=== PATIENT | female | born 1980 | race Caucasian/White ===

== ENCOUNTER 2024-10-13 20:50 | Outpatient (REF) | payer OTHER, SELFPAY ==
[2024-10-21 22:06] LABS: Age Gdln ACOG Testing Note (.); HPV Aptima Positive (Negative); HPV Genotype 16 Negative (Negative); HPV Genotype 18,45 Negative (Negative); IGP, Aptima HPV, rfx 16/18,45 Note (.)
== END 2024-10-13 20:51 | disposition home or self-care (01) ==
LOC: LAB 20:50
PROVIDERS: Visit Provider Obstetrics & Gynecology
DX: Z01.419 Encounter for gynecological examination (general) (routine) without abnormal findings (principal)
CPT/HCPCS: 87624; 87625; 88175

== ENCOUNTER 2024-12-10 11:05 | Outpatient (OUT) | payer OTHER, SELFPAY | END 2024-12-10 11:06 | disposition home or self-care (01) | PROVIDERS: Visit Provider Obstetrics & Gynecology | DX: Z01.818 Encounter for other preprocedural examination (principal); E28.2 Polycystic ovarian syndrome; N91.2 Amenorrhea, unspecified ==

== ENCOUNTER 2024-12-19 08:29 | Day surgery (SDC) | payer OTHER, SELFPAY ==
[2024-12-10 11:27] VITALS: BP 164/84; PULSE 61; TEMP 36.3; O2SAT 98; BMI 37.8
[2024-12-19] VITALS (11 sets, daily range): BP systolic 132–164; BP diastolic 70–99; PULSE 51–68; TEMP 36.2–36.4; O2SAT 94–99; BMI 38.2
[2024-12-19 08:42] LABS: Basophils Percent Auto 0.3 % (0.2-2.0); Eosinophils Absolute Auto 0.2 10^3/uL (0.0-0.7); Eosinophils Percent Auto 2.9 % (0.9-7.0); Hematocrit 30.7 % (36.0-48.0); Hemoglobin 9.8 g/dL (12.0-16.0); Immature Granulocytes Abs Auto 0.02 10^3/uL (0.00-0.03); Immature Granulocytes Pct Auto 0.3 % (0.0-0.5); Lymphocytes Absolute Auto 2.3 10^3/uL (1.2-3.8); Lymphocytes Percent Auto 31.3 % (20.5-60.0); Mean Corpuscular HGB Conc 31.9 g/dL (29.9-35.2); Mean Corpuscular Hemoglobin 20.9 pg (26.7-34.0); Mean Corpuscular Volume 65.5 fL (81.0-99.0); Mean Platelet Volume 11.2 fL (9.5-13.5); Monocytes Absolute Auto 0.5 10^3/uL (0.3-0.8); Monocytes Percent Auto 6.3 % (1.7-12.0); Neutrophils Absolute Auto 4.3 10^3/uL (1.4-6.5); Neutrophils Percent Auto 58.9 % (43.0-75.0); Platelet Count 188 10^3/uL (150-450); Red Blood Count 4.69 10^6/uL (4.20-5.40); Red Cell Distribution Width 17.4 % (11.0-15.0); White Blood Count 7.3 10^3/uL (4.0-11.0)
--- OUTSIDE RECORDS SUMMARY | 2024-12-19 08:43 | XMS_ITS | CCD ---
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 morphology finding Nom (Bld) RBC morphology [facility] Estradiolon 11-04-2024 Estradiol 169.0 pg/mL Normal . [facility] Comment on above: Result Comment: Adul t Female Range Follicular phase 12.5 - 166.0 Ovulation phase 85.8 - 498.0 Luteal phase 43.8 - 211.0 Postmenopausal <6.0 - 54.7 1st trimester 215.0 - >4300.0 [employer] ECLIA methodology Performed at: [facility] [id number] Consumer Marketing Specialist: Fady Gallardo PhD, Phone: [phone] PERFORMED BY: [place] [address] PATHOLOGIST BASE BRANDER SERGIO CABRAL M.D. Performed By: #### S CAN CBC, BNP, BMP, PT, PTT, HCGQUAL, CK, HS TROP #### [facility] [address] [place] [address] Follicle Stimulating Hormone on 11-04-2024 Follicle Stimulating Hormone 8.3 m[iU]/mL Normal [facility] Comment on above: Result Comment: FEMA LE NORMALS (PREMENOPAUSE) MID-FOLLICULAR PHASE: 3.9-8.8 mIU/mL MID-CYCLE PEAK: 4.5-22.5 mIU/mL MID-LUTEAL PHASE: 1.8-5.1 mIU/mL FEMALE NORMALS (POSTMENOPAUSE): 16.7-113.6 mIU/mL MALE NORMALS: 1.3-19.3 mIU/mL Performed By: #### S CAN CBC, BNP, BMP, PT, PTT, HCGQUAL, CK, HS TROP #### [facility] [address] [id number] [place] Follitropin [Units/volume] i n Serum or PlasmaOrdered By: Sami Barnhart on 11-04-2024 Follitropin Qn Follitropin [Units/volume] in Serum or Plasma [facility] Comment on above: FEMALE NORMALS (GERMAIN ENOPAUSE) MID-FOLLICULAR PHASE: 3.9-8.8 mIU/mL MID-CYCLE PEAK: 4.5-22.5 mIU/mL MID-LUTEAL PHASE: 1.8-5.1 mIU/mLFEMALE NORMALS (POSTMENOPAUSE): 16.7-113.6 mIU/mLMALE NORMALS: 1.3-19.3 mIU/mL Free T4 (Free Thyroxine)on 0 11-04-2024 Free T4 [Mass/Vol] 0.63 ng/dL Normal 0.61-1.12 [facility] Comment on above: Performed By: #### S CAN CBC, BNP, BMP, PT, PTT, HCGQUAL, CK, HS TROP #### [facility] [address] HCG,Quantitativeon 5 HCG,Quantitative <0.60 Normal [facility] Comment on above: Result Comment: Appr oximate Approximate hCG Gestational Age Range (mIU/ml) (weeks) 0.2-1 5-50 1-2 50-500 2-3 100-5,000 3-4 500-10,000 4-5 1,000-50,000 5-6 10,000-100,000 6-8 15,000-200,000 8-12 10,000-100,000 PERFORMED BY: [place] [address] PATHOLOGIST BASE BRANDER SERGIO CABRAL M.D. Performed By: #### S CAN CBC, BNP, BMP, PT, PTT, HCGQUAL, CK, HS TROP #### [facility] [address] Hematocrit Auto (Bld) [Volum e fraction]Ordered By: Sami Barnhart on 11-04-2024 Hematocrit (Bld) [Volume fraction] Hematocrit [Volume Fraction] of Blood by Automated count Low 34.0-46.4 [facility] Hemoglobin A1c/Hemoglobin.to ruthann in BloodOrdered By: Sami Barnhart on 11-04-2024 HbA1c (Bld) [Mass fraction] Hemoglobin A1c percentage 4.3-5.6 [facility] Comment on above: Increased risk for d iabetes: 5.7 - 6.4diabetes: >6.4glycemic control for adults with diabetes: <7.0 Hemoglobin [Mass/volume] in BloodOrdered By: Sami Barnhart on 11-04-2024 Hemoglobin (Bld) [Mass/Vol] Hemoglobin [Mass/volume] in Blood Low 11.8-15.4 [facility] Hypochromia LM Ql (Bld)Order ed By: Sami Barnhart on 11-04-2024 Hypochromia Ql (Bld) Hypochromia [Presen ce] in Blood by Light microscopy [facility] Leukocytes [#/volume] correc amanda for nucleated erythrocytes in Blood by Automated counOrdered By: Sami Barnhart on 11-04-2024 WBC corrected for nucl RBC Auto (Bld) [#/Vol] Leukocytes [#/volume] corrected for nucleated erythrocytes in Blood by Automated coun 3.8-11.6 [facility] Luteinizing Hormoneon 2024 Luteinizing Hormone 8.3 m[iU]/mL Normal . [facility] Comment on above: Result Comment: Adul t Female Range Follicular phase 2.4 - 12.6 Ovulation phase 14.0 - 95.6 Luteal phase 1.0 - 11.4 Postmenopausal 7.7 - 58.5 Performed By: #### S CAN CBC, BNP, BMP, PT, PTT, HCGQUAL, CK, HS TROP #### [facility] [address] [place] [address] Lymphocytes Auto (Bld) [#/Vo l]Ordered By: Sami Barnhart on 11-04-2024 Lymphocytes (Bld) [#/Vol] Lymphocytes [#/volume] in Blood by Automated count 1.00-4.8 [facility] Lymphocytes/100 WBC Auto (Bl d)Ordered By: Sami Barnhart on 11-04-2024 Lymphocytes/100 WBC (Bld) Lymphocytes/100 leukocytes in Blood by Automated count . [facility] MCH Auto (RBC) [Entitic mass ]Ordered By: Sami Barnhart on 11-04-2024 MCH (RBC) [Entitic mass] MCH [Entitic mass] by Automated count Low 24.7-34.3 [facility] MCHC Auto (RBC) [Mass/Vol]Or dered By: Sami Barnhart on 11-04-2024 MCHC (RBC) [Mass/Vol] MCHC [Mass/volume] by Automated count Low 32.0-35.0 [facility] MCV Auto (RBC) [Entitic vol] Ordered By: Sami Barnhart on 11-04-2024 MCV (RBC) [Entitic vol] MCV [Entitic vol ume] by Automated count Low 80-100 [facility] Microcytes LM Ql (Bld)Ordere d By: Sami Barnhart on 11-04-2024 Microcytes Ql (Bld) Microcytes [Presence ] in Blood by Light microscopy [facility] Monocytes Auto (Bld) [#/Vol] Ordered By: Sami Barnhart on 11-04-2024 Monocytes (Bld) [#/Vol] Automated blood monocyte count 0.0-0.8 [facility] Monocytes/100 WBC Auto (Bld) Ordered By: Sami Barnhart on 11-04-2024 Monocytes/100 WBC (Bld) Automated monocyte % . [facility] Neutrophils Auto (Bld) [#/Vo l]Ordered By: Sami Barnhart on 11-04-2024 Neutrophils (Bld) [#/Vol] Neutrophils [#/volume] in Blood by Automated count 1.8-7.7 [facility] Neutrophils/100 WBC Auto (Bl d)Ordered By: Sami Barnhart on 11-04-2024 Neutrophils/100 WBC (Bld) Automated neutrophil % . [facility] Nucleated erythrocytes [Pres ence] in Blood by Automated countOrdered By: Sami Barnhart on 11-04-2024 Nucleated RBC Auto Ql (Bld) Nucleated erythrocytes [Presence] in Blood by Automated count 0-0.5 [facility] Ovalocytes [Presence] in Blo od by Light microscopyOrdered By: Sami Barnhart on 11-04-2024 Ovalocytes LM Ql (Bld) Ovalocyte detection [facility] Platelet adequacy [Presence] in Blood by Light microscopyOrdered By: Sami Barnhart on 11-04-2024 Platelets LM Ql (Bld) Platelet adequacy [Presence] in Blood by Light microscopy Normal [facility] Platelet mean volume Auto (B ld) [Entitic vol]Ordered By: Sami Barnhart on 11-04-2024 Platelet mean volume (Bld) [Entitic vol] Platelet mean volume [Entitic volume] in Blood by Automated count 6.3-10.7 [facility] Platelet morphology finding [Identifier] in BloodOrdered By: Sami Barnhart on 11-04-2024 Platelet morphology finding Nom (Bld) Platelet morphology finding [Identifier] in Blood Normal [facility] Platelets Auto (Bld) [#/Vol] Ordered By: Sami Barnhart on 11-04-2024 Platelets (Bld) [#/Vol] Platelets [#/vol ume] in Blood by Automated count 150-450 [facility] Poikilocytosis [Presence] in Blood by Light microscopyOrdered By: Sami Barnhart on 11-04-2024 Poikilocytosis LM Ql (Bld) Poikilocytosis [Presence] in Blood by Light microscopy [facility] Polychromasia [Presence] in Blood by Light microscopyOrdered By: Sami Barnhart on 11-04-2024 Polychromasia LM Ql (Bld) Polychromasia [Presence] in Blood by Light microscopy [facility] RBC Auto (Bld) [#/Vol]Ordere d By: Sami Barnhart on 11-04-2024 RBC (Bld) [#/Vol] Erythrocytes [#/volu me] in Blood by Automated count 3.60-5.00 [facility] Scan and CBCon 11-04-2024 Anisocytosis Ql (Bld) Moderate Normal [facility] Comment on above: Performed By: #### S CAN CBC, BNP, BMP, PT, PTT, HCGQUAL, CK, HS TROP #### [facility] [address] Basophils (Bld) [#/Vol] 0.1 10*3/uL Normal 0.0-0.2 [facility] Comment on above: Result Comment: PERF ORMED BY: [facility] [address] [id number] PATHOLOGIST BASE BRANDER SERGIO CABRAL M.D. Performed By: #### S CAN CBC, BNP, BMP, PT, PTT, HCGQUAL, CK, HS TROP #### [address] Basophils/100 WBC (Bld) 1.4 % Normal . T eliceo [facility] Comment on above: Performed By: #### S CAN CBC, BNP, BMP, PT, PTT, HCGQUAL, CK, HS TROP #### [address] Crenated RBC Slight Normal [facility] Comment on above: Performed By: #### S CAN CBC, BNP, BMP, PT, PTT, HCGQUAL, CK, HS TROP #### [address] Eosinophils (Bld) [#/Vol] 0.1 10*3/uL Normal 0.0-0.45 [facility] Comment on above: Performed By: #### S CAN CBC, BNP, BMP, PT, PTT, HCGQUAL, CK, HS TROP #### [address] Eosinophils/100 WBC (Bld) 1.4 % Normal . [facility] Comment on above: Performed By: #### S CAN CBC, BNP, BMP, PT, PTT, HCGQUAL, CK, HS TROP #### [address] Erythrocyte distribution width (RBC) [Ratio] 16.7 % High 11.9-15.3 [facility] Comment on above: Performed By: #### S CAN CBC, BNP, BMP, PT, PTT, HCGQUAL, CK, HS TROP #### [address] Hematocrit (Bld) [Volume fraction] 31.1 % Low 34.0-46.4 [facility] Comment on above: Performed By: #### S CAN CBC, BNP, BMP, PT, PTT, HCGQUAL, CK, HS TROP #### [address] Hemoglobin (Bld) [Mass/Vol] 9.9 g/dL Low 11.8-15.4 [facility] Comment on above: Performed By: #### S CAN CBC, BNP, BMP, PT, PTT, HCGQUAL, CK, HS TROP #### [address] Hypochromasia Marked Normal [facility] Comment on above: Performed By: #### S CAN CBC, BNP, BMP, PT, PTT, HCGQUAL, CK, HS TROP #### [address] Lymphocytes (Bld) [#/Vol] 2.5 10*3/uL Normal 1.00-4.8 [facility] Comment on above: Performed By: #### S CAN CBC, BNP, BMP, PT, PTT, HCGQUAL, CK, HS TROP #### [address] Lymphocytes/100 WBC (Bld) 34.2 % Normal . [facility] Comment on above: Performed By: #### S CAN CBC, BNP, BMP, PT, PTT, HCGQUAL, CK, HS TROP #### [address] MCH (RBC) [Entitic mass] 20.3 pg Low 24.7-34.3 [facility] Comment on above: Performed By: #### S CAN CBC, BNP, BMP, PT, PTT, HCGQUAL, CK, HS TROP #### [address] MCV (RBC) [Entitic vol] 63.7 fL Low 80-100 T [facility] Comment on above: Performed By: #### S CAN CBC, BNP, BMP, PT, PTT, HCGQUAL, CK, HS TROP #### [address] Mean Corpuscular HGB Conc 31.8 g/dL Low 32.0-35.0 [facility] Comment on above: Performed By: #### S CAN CBC, BNP, BMP, PT, PTT, HCGQUAL, CK, HS TROP #### [address] Microcytosis Moderate Normal [facility] Comment on above: Performed By: #### S CAN CBC, BNP, BMP, PT, PTT, HCGQUAL, CK, HS TROP #### [place] [address] [place] Monocytes (Bld) [#/Vol] 0.3 10*3/uL Normal 0.0-0.8 [facility] Comment on above: Performed By: #### S CAN CBC, BNP, BMP, PT, PTT, HCGQUAL, CK, HS TROP #### [address] Monocytes/100 WBC (Bld) 4.7 % Normal . T [facility] Comment on above: Performed By: #### S CAN CBC, BNP, BMP, PT, PTT, HCGQUAL, CK, HS TROP #### [place] [address] [place] Neutrophils (Bld) [#/Vol] 4.2 10*3/uL Normal 1.8-7.7 [facility] Comment on above: Performed By: #### S CAN CBC, BNP, BMP, PT, PTT, HCGQUAL, CK, HS TROP #### [address] Neutrophils/100 WBC (Bld) 58.3 % Normal . [facility] Comment on above: Performed By: #### S CAN CBC, BNP, BMP, PT, PTT, HCGQUAL, CK, HS TROP #### [address] NRBC% 0.2 /100{WBC} Normal 0-0.5 [facility] Comment on above: Performed By: #### S CAN CBC, BNP, BMP, PT, PTT, HCGQUAL, CK, HS TROP #### [place] [address] [place] Ovalocytes Slight Normal [facility] Comment on above: Performed By: #### S CAN CBC, BNP, BMP, PT, PTT, HCGQUAL, CK, HS TROP #### [address] Platelet Estimate Normal Normal Normal [facility] Comment on above: Performed By: #### S CAN CBC, BNP, BMP, PT, PTT, HCGQUAL, CK, HS TROP #### [facility] [address] Platelet mean volume (Bld) [Entitic vol] 8.9 fL Normal 6.3-10.7 [facility] Comment on above: Performed By: #### S CAN CBC, BNP, BMP, PT, PTT, HCGQUAL, CK, HS TROP #### [address] Platelet Morphology Normal Normal Normal The [facility] Comment on above: Result Comment: PERF ORMED BY: [place] [address] PATHOLOGIST BASE BRANDER SERGIO CABRAL M.D. Performed By: #### S CAN CBC, BNP, BMP, PT, PTT, HCGQUAL, CK, HS TROP #### [address] Platelets (Bld) [#/Vol] 219 10*3/uL Normal 150-450 [facility] Comment on above: Performed By: #### S CAN CBC, BNP, BMP, PT, PTT, HCGQUAL, CK, HS TROP #### [address] Poikilocytosis Moderate Normal [facility] Comment on above: Performed By: #### S CAN CBC, BNP, BMP, PT, PTT, HCGQUAL, CK, HS TROP #### [address] Polychromasia Slight Normal [facility] Comment on above: Performed By: #### S CAN CBC, BNP, BMP, PT, PTT, HCGQUAL, CK, HS TROP #### [facility] [address] RBC (Bld) [#/Vol] 4.89 10*6/uL Normal 3.60-5.[address] [facility] Comment on above: Performed By: #### S CAN CBC, BNP, BMP, PT, PTT, HCGQUAL, CK, HS TROP #### [facility] [address] [place] [address] [place] Schistocytes Slight Normal [facility] Comment on above: Performed By: #### S CAN CBC, BNP, BMP, PT, PTT, HCGQUAL, CK, HS TROP #### [facility] [address] Target Cells Moderate Normal [facility] Comment on above: Performed By: #### S CAN CBC, BNP, BMP, PT, PTT, HCGQUAL, CK, HS TROP #### [facility] [address] WBC (Bld) [#/Vol] 7.3 10*3/uL Normal 3.8-11.6 [facility] Comment on above: Performed By: #### S CAN CBC, BNP, BMP, PT, PTT, HCGQUAL, CK, HS TROP #### [facility] [address] Schistocytes [Presence] in B lood by Light microscopyOrdered By: Sami Barnhart on 11-04-2024 Schistocytes LM Ql (Bld) Schistocytes [Presence] in Blood by Light microscopy [facility] Serum or plasma estradiol (E 2) measurement (mass/volume)Ordered By: Sami Barnhart on 11-04-2024 E2 [Mass/Vol] Serum or plasma estradiol (E2) measurement (mass/volume) . [facility] Comment on above: Adult Female Range F ollicular phase 12.5 - 166.0 Ovulation phase 85.8 - 498.0 Luteal phase 43.8 - 211.0 Postmenopausal <6.0 - 54.7 1st trimester 215.0 - >4300.0Roche ECLIA methodologyPerformed at: - [facility] [address] [place] [id number] Director: Fady Gallardo PhD, Phone: [phone] Serum or plasma lutropin reed surement (units/volume)Ordered By: Sami Barnhart on 11-04-2024 Lutropin Qn Serum or plasma lutr opin measurement (units/volume) . [facility] Comment on above: Adult Female Range F ollicular phase 2.4 - 12.6 Ovulation phase 14.0 - 95.6 Luteal phase 1.0 - 11.4 Postmenopausal 7.7 - 58.5 Target cells [Presence] in B lood by Light microscopyOrdered By: Sami Barnhart on 11-04-2024 Target cells LM Ql (Bld) Target cells [facility] Thyroid Stimulating Hormoneo n 11-04-2024 TSH Qn 39.13 m[IU]/L High 0.45-5.33 [facility] Comment on above: Performed By: #### S CAN CBC, BNP, BMP, PT, PTT, HCGQUAL, CK, HS TROP #### [facility] [address] Thyrotropin [Units/volume] i n Serum or PlasmaOrdered By: Sami Barnhart on 11-04-2024 TSH Qn Thyrotropin [Units/volume] in Serum or Plasma High 0.45-5.33 [facility] Thyroxine (T4) free [Mass/vo lume] in Serum or PlasmaOrdered By: Sami Barnhart on 11-04-2024 Free T4 [Mass/Vol] Thyroxine (T4) free [Mass/volume] in Serum or Plasma 0.61-1.12 [facility] WBC Auto (Bld) [#/Vol]Ordere d By: Sami Barnhart on 11-04-2024 WBC (Bld) [#/Vol] Leukocytes [#/volume ] in Blood by Automated count 3.8-11.6 [facility] IGP,APTIMA HPV,AGE GDLNon AGE GDLN ACOG TESTING Note . [facility] Comment on above: TESTS RESULT FLAG UN ITS REF RANGE LAB Clinician Provided Cytology Information Source.............Cervix;Endocervix No. of containers..01 ThinPrep Vial Age Kenzieo KIMBERLY Rasheeda... 3065 FLAG LEGEND: L-Low Normal,H-High Normal,LL-Alert Low,HH-Alert High <-Panic Low,>-Panic High,A-Abnormal,AA-Critical Abnormal Performed at: 01 =G [facility] [id number] Laura Mueller MD, HPV APTIMA Positive Abnormal Negative [facility] Comment on above: This nucleic acid am plification test detects fourteen high- risk HPV types (16,18,31,33,35,39,45,51,52,56,58,59,66,68) without differentiation. HPV GENOTYPE 16 Negative Negative [facility] HPV GENOTYPE 18,45 Negative Negative [facility] Comment on above: Performed at: =G - L [address] [id number] Consumer Marketing Specialist: Laura Mueller MD, Phone: [phone] Performed at: [employer] [facility] [address] [place] [id number] Consumer Marketing Specialist: Shelton Linton MD, Phone: [phone] IGP, APTIMA HPV, RFX 16/18,45 Note . [facility] Comment on above: TESTS RESULT FLAG UN ITS REF RANGE LAB DIAGNOSIS: 02 NEGATIVE FOR INTRAEPITHELIAL LESION OR MALIGNANCY. Specimen adequacy: 02 Satisfactory for evaluation. Endocervical and/or squamous metaplastic cells (endocervical component) are present. Performed by: 02 Haider Cueto Tapering Machine Operator ([facility]) . 02 Note: Note 03 The Pap smear is a screening test designed to aid in the detection of premalignant and malignant conditions of the uterine cervix. It is not a diagnostic procedure and should not be used as the sole means of detecting cervical cancer. Both false-positive and false-negative reports do occur. Test Methodology: Note 03 This liquid based ThinPrep(R) pap test was screened with the use of an image guided system. HPV Genotype Reflex Note 02 Criteria met, see HPV Genotype results. FLAG LEGEND: L-Low Normal,H-High Normal,LL-Alert Low,HH-Alert High <-Panic Low,>-Panic High,A-Abnormal,AA-Critical Abnormal Performed at: 02 [facility] [address] [place] [address] Shelton Linton MD, 03 WB [facility] [address] [phone] Laura Mueller MD, Interpretation and review of laboratory results Abnormal [facility] BRUSH-SPATULA CERVIX ENDOCERVIX [facility] Thyrotropin [Units/volume] i n Serum or PlasmaOrdered By: Ayse Wiley on 10-21-2024 TSH Qn 1.01 m[IU]/L Normal 0.45-5.33 [facility] Comment on above: Result Comment: PERF ORMED BY: [place] [address] PATHOLOGIST BASE BRANDER EDUARDO CUNHA M.D. Performed By: #### S CAN CBC, BNP, BMP, PT, PTT, HCGQUAL, CK, HS TROP #### [facility] [address] [place] [address] TSH Qn Thyrotropin [Units/volume] in Serum or Plasma 0.45-5.33 [facility] Thyroxine (T4) free [Mass/vo lume] in Serum or PlasmaOrdered By: Ayse Wiley on 08-11-2024 Free T4 [Mass/Vol] 1.16 ng/dL High 0.61-1.12 [facility] Comment on above: Performed By: #### S CAN CBC, BNP, BMP, PT, PTT, HCGQUAL, CK, HS TROP #### [address] Free T4 [Mass/Vol] Thyroxine (T4) free [Mass/volume] in Serum or Plasma High 0.61-1.12 [facility] Activated partial thrombopla stin time (aPTT) in platelet poor plasma by coagulation aOrdered By: Jose Fox on 06-24-2024 aPTT Coag (PPP) [Time] 48.7 s High 25.1-36.5 [facility] Comment on above: A hematocrit value g reater than 55% may lead to inaccurate results in coagulation testing. Patients having hematocrit values >55% require a special collection tube for coagulation studies. Please contact the laboratory at [phone] for redraw instructions. Alanine aminotransferase [En zymatic activity/volume] in Serum or PlasmaOrdered By: Jose Fox on 06-24-2024 ALT [Catalytic activity/Vol] 7 U/L Normal 7-52 [facility] Comment on above: Order Comment: FASTI NG Y Performed By: #### S CAN CBC, BNP, BMP, PT, PTT, HCGQUAL, CK, HS TROP #### [facility] [address] [place] [address] Albumin [Mass/volume] in Ser um or Plasma by Bromocresol green (BCG) dye binding methoOrdered By: Jose Fox on 06-24-2024 Albumin BCG dye [Mass/Vol] 3.7 g/dL 3.5-5.7 [facility] Alkaline phosphatase [Enzyma tic activity/volume] in Serum or PlasmaOrdered By: Jose Fox on 06-24-2024 ALP [Catalytic activity/Vol] 30 U/L Low 34-104 [facility] Comment on above: Order Comment: FASTI NG Y Performed By: #### S CAN CBC, BNP, BMP, PT, PTT, HCGQUAL, CK, HS TROP #### [address] Aspartate aminotransferase [ Enzymatic activity/volume] in Serum or PlasmaOrdered By: Jose Fox on 06-24-2024 AST [Catalytic activity/Vol] 16 U/L Normal 13-39 [facility] Comment on above: Order Comment: FASTI NG Y Performed By: #### S CAN CBC, BNP, BMP, PT, PTT, HCGQUAL, CK, HS TROP #### [address] Automated basophil %Ordered By: Jose Fox on 06-24-2024 Basophils/100 WBC (Bld) 0.5 % Normal . [facility] Comment on above: Performed By: #### S CAN CBC, BNP, BMP, PT, PTT, HCGQUAL, CK, HS TROP #### [address] Automated basophil countOrde red By: Jose Fox on 06-24-2024 Basophils (Bld) [#/Vol] 0.0 10*3/uL Normal 0.0-0.2 [facility] Comment on above: Result Comment: PERF ORMED BY: [place] [address] PATHOLOGIST BASE BRANDER EDUARDO CUNHA M.D. Performed By: #### S CAN CBC, BNP, BMP, PT, PTT, HCGQUAL, CK, HS TROP #### [address] Automated blood monocyte cou ntOrdered By: Jose Fox on 06-24-2024 Monocytes (Bld) [#/Vol] 0.3 10*3/uL Normal 0.0-0.8 [facility] Comment on above: Performed By: #### S CAN CBC, BNP, BMP, PT, PTT, HCGQUAL, CK, HS TROP #### [address] Automated eosinophil %Ordere d By: Jose Fox on 06-24-2024 Eosinophils/100 WBC (Bld) 2.7 % Normal . [facility] Comment on above: Performed By: #### S CAN CBC, BNP, BMP, PT, PTT, HCGQUAL, CK, HS TROP #### [address] Automated eosinophil countOr dered By: Jose Fox on 06-24-2024 Eosinophils (Bld) [#/Vol] 0.2 10*3/uL Normal 0.0-0.45 [facility] Comment on above: Performed By: #### S CAN CBC, BNP, BMP, PT, PTT, HCGQUAL, CK, HS TROP #### [address] Automated monocyte %Ordered By: Jose Fox on 06-24-2024 Monocytes/100 WBC (Bld) 4.7 % Normal . [facility] Comment on above: Performed By: #### S CAN CBC, BNP, BMP, PT, PTT, HCGQUAL, CK, HS TROP #### [address] Automated neutrophil %Ordere d By: Jose Fox on 06-24-2024 Neutrophils/100 WBC (Bld) 47.3 % Normal . [facility] Comment on above: Performed By: #### S CAN CBC, BNP, BMP, PT, PTT, HCGQUAL, CK, HS TROP #### [facility] [address] Basic Metabolic Panelon Creatinine Clr Calc Pharmacy 85.64 Normal [facility] Comment on above: Order Comment: FASTI NG Y Performed By: #### S CAN CBC, BNP, BMP, PT, PTT, HCGQUAL, CK, HS TROP #### [facility] [address] GFR/1.73 sq M.predicted MDRD (S/P/Bld) [Vol rate/Area] mL/min/{1.73_m2} Normal [facility] Comment on above: Order Comment: FASTI NG Y Performed By: #### S CAN CBC, BNP, BMP, PT, PTT, HCGQUAL, CK, HS TROP #### [facility] [address] [place] [address] Bilirubin.direct [Mass/volum e] in Serum or PlasmaOrdered By: Jose Fox on 06-24-2024 Bilirubin.direct [Mass/Vol] 0.10 mg/dL 0.03-0.18 [facility] Bilirubin.total [Mass/volume ] in Serum or PlasmaOrdered By: Jose Fox on 06-24-2024 Bilirubin [Mass/Vol] 0.6 mg/dL Normal 0.3-1.0 [facility] Comment on above: Order Comment: FASTI NG Y Performed By: #### S CAN CBC, BNP, BMP, PT, PTT, HCGQUAL, CK, HS TROP #### [address] heart angio w/scoreon CT heart angio w/score [facility] [place] [address] [place] [address] CT Scan Report Signed with Thienenda Patient: Shelbie Yang MR#: [id number] : 1980 Acct:[id number] Age/Sex: 44 / F ADM Date: 06/23/24 Loc: 4 Room: 4D5725-0 Type: ADM IN Attending Dr: Jose Fox DO Copies to: MD Jose Ramirez DO Ordering Provider: Salvador Kwan MD Date of Service: 06/24/24 CT/CT heart angio w/score: Chest pain ADDENDUM 1 Addendum is made for evaluation of the noncardiac portions of this study. No mediastinal or hilar lymphadenopathy is seen. Morgagni hernia containing uncomplicated colon. There is associated compressive atelectasis involving the right middle lobe. Mild scattered areas of atelectasis/scarring. No suspicious pulmonary nodule. No pneumothorax. No pleural effusion. Visualized upper abdomen demonstrates no acute findings. Osseous structures demonstrate no acute bony process. Surrounding soft tissues demonstrate no acute findings. Addendum Dictated By: Zelalem Elam Jr, DO Addendum Signed By: 06/25/24947 Addendum Cosigned By: DD/ /12/943 TD/TT: 06/25/2402/13/[address]/CT heart angio w/score IMPRESSION: No acute findings. Morgagni hernia containing uncomplicated colon. Impression dictated by: Zelalem Elam Jr., D.O.06/25/2024 9:48 AM Dictation Location: [place] [address] Addendum Dictated By: Zelalem Elam Jr, DO Addendum Signed By: 06/25/24 0 950 Addendum Cosigned By: DD/ /12/943 TD/TT: 06/25/2402/13/948 CLINICAL INDICATION: Patient Age: 44 years Patient Gender: Female Indication: Evaluation of coronary arteries for atherosclerosis or coronary anomalies TECHNIQUE: Image Acquisition: A Be [employer] View 128 was used for data acquisition. Bolus tracking in the descending aorta with a threshold of 150 HU media was performed. Immediately afterwards, ECG synchronized Cardiac CT was then performed from cardiac base to apex using Trigger Method: retrospective gating with ECG tube current modulation. A total of 80 mL of Omnipaque 350 mgl/mL contrast media was administered at 5 mL/sec followed by a saline flush using a biphasic injection protocol. Tube voltage 100 kVp. Heart rate was controlled with metoprolol, as needed. Coronary vasodilation was facilitated with sublingual nitroglycerin. The average heart rate at the time of acquisition was 137 bpm mainly due to a run of NSVT at the end of the scan and markedly irregular. Image Reconstruction: Transaxial images were reconstructed at 0.63 mm slice thickness. Data was reviewed interactively on an advanced workstation capable of 2 and 3 dimensional displays in all conventional reconstruction formats including multiplanar reformations, maximum intensity projections, curved multiplanar reformations, and volume rendered reconstructions. Selected routine images displaying relevant coronary anatomy and pathology were saved and sent to PACS. Complications: None Technical Quality: Overall image quality is Good. Coronary artery opacification is Excellent. Significant misregistration artifact due to rhythm irregularity secondary to PVCs and run of NSVT towards the end of the study. Total DLP (Dose-Length Product): 1701 mGy.cm). (23.8 mSv). Please note: The reported value represents the total of one or more individual components during the CT acquisition on this date and at this time, and as such, the same value may appear in more than one CT report depending on the interpreting/reporting physicians. FINDINGS: -CT Coronary Calcium Scoring- LMA= 0 LAD= 0 LCX= 0 RCA= 0 Total calcium score = 0 using the AJ-130 method. Other Calcification: No other significant intracardiac calcification. -Coronary CT Angiography- Coronary Arteries: The coronaries have normal origin and proximal course. Note: Stenosis is reported as maximum percentage diameter stenosis. Stenosis grading is reported using the following scheme. Quantitative Stenosis Grading: CAD-RADS 0: 0% - No visible stenosis CAD-RADS 1: 1-24% - Minimal stenosis CAD-RADS 2: 25-49% - Mild stenosis CAD-RADS 3: 50-69% - Moderate stenosis CAD-RADS 4A: 70-99% - Severe stenosis in 1-2 vessels CAD-RADS 4B: Left main >50%, or 3 vessel >70% CAD-RADS 5: 100% - Occluded Left Main: CAD-RADS 0: The left main bifurcates into the left anterior descending artery and left circumflex artery. The left main has no visible stenosis. LAD: CAD-RADS 0. The LAD courses along the anterior interventricular grove as it gives off diagonal arteries. No significant stenosis of the LAD. LCx and Obtuse Marginals: CAD-RADS 0. The left circumflex courses along the left AV groove as it gives off obtuse marginal arteries. No significa (more content not included)... Normal [facility] Calcium [Mass/volume] in Ser um or PlasmaOrdered By: Jose Fox on 06-24-2024 Calcium [Mass/Vol] 8.4 mg/dL Low 8.6-10.3 [facility] Comment on above: Order Comment: FASTI NG Y Performed By: #### S CAN CBC, BNP, BMP, PT, PTT, HCGQUAL, CK, HS TROP #### [facility] [address] [place] [address] [place] Carbon dioxide, total [Moles /volume] in Serum or PlasmaOrdered By: Jose Fox on 06-24-2024 CO2 [Moles/Vol] 27.4 mmol/L Normal 21.0-31.0 [facility] Comment on above: Order Comment: FASTI NG Y Performed By: #### S CAN CBC, BNP, BMP, PT, PTT, HCGQUAL, CK, HS TROP #### [facility] [address] [place] [id number] [place] Chloride [Moles/volume] in S og or PlasmaOrdered By: Jose Fox on 06-24-2024 Chloride [Moles/Vol] 108 mmol/L High 98-107 [facility] Comment on above: Order Comment: FASTI NG Y Performed By: #### S CAN CBC, BNP, BMP, PT, PTT, HCGQUAL, CK, HS TROP #### [facility] [address] [place] [id number] [place] Cholesterol [Mass/volume] in Serum or PlasmaOrdered By: Jose Fox on 06-24-2024 Cholesterol [Mass/Vol] 170 mg/dL Normal 140-200 [facility] Comment on above: Chol less than 200 m g/dl low riskChol 201-239 mg/dl borderline riskChol 240 mg/dl and greater high risk Order Comment: FASTI NG Y Result Comment: Chol less than 200 mg/dl low risk Chol 201-239 mg/dl borderline risk Chol 240 mg/dl and greater high risk Performed By: #### S CAN CBC, BNP, BMP, PT, PTT, HCGQUAL, CK, HS TROP #### [facility] [address] [place] [id number] [facility] Cholesterol in LDL Calc [Mas s/Vol]Ordered By: Jose Fox on 06-24-2024 Cholesterol in LDL [Mass/Vol] 110 mg/dL High 0-100 [facility] Comment on above: LDL ATP III CLASSIFI CATIONLDL less than 100 mg/dL OptimalLDL 100-129 mg/dL Near or above optimalLDL 130-159 mg/dL Borderline highLDL 160-189 mg/dL HighLDL greater than 189 mg/dL Very high Cholesterol in VLDL Calc [Ma ss/Vol]Ordered By: Jose Fox on 06-24-2024 Cholesterol in VLDL [Mass/Vol] 12 mg/dL [facility] Complete Blood Count Auto Di ffon 06-24-2024 Mean Corpuscular HGB Conc 32.8 g/dL Normal 32.0-35.0 [facility] Comment on above: Performed By: #### S CAN CBC, BNP, BMP, PT, PTT, HCGQUAL, CK, HS TROP #### [facility] [address] NRBC% 0.2 /100{WBC} Normal 0-0.5 [facility] Comment on above: Performed By: #### S CAN CBC, BNP, BMP, PT, PTT, HCGQUAL, CK, HS TROP #### [facility] [address] [place] [id number] [place] Creatine Kinaseon 06-24-2024 CK [Catalytic activity/Vol] 46 U/L Normal 30-223 [facility] Comment on above: Performed By: #### H S TROP, CK #### [facility] [address] [place] [id number] [place] Creatine kinase [Enzymatic a ctivity/volume] in Serum or PlasmaOrdered By: Jose Fox on 06-24-2024 CK [Catalytic activity/Vol] 41 U/L Normal 30-223 [facility] Comment on above: Performed By: #### H S TROP, CK #### [facility] [address] Creatinine [Mass/volume] in Serum or PlasmaOrdered By: Jose Fox on 06-24-2024 Creatinine [Mass/Vol] 0.82 mg/dL Normal 0.60-1.20 [facility] Comment on above: Order Comment: FASTI NG Y Performed By: #### S CAN CBC, BNP, BMP, PT, PTT, HCGQUAL, CK, HS TROP #### [facility] [address] [place] [address] [facility] ECG 12 lead ECGon 06-24-2024 ECG 12 lead ECG [facility] Main [place] [address] [place] [address] Electrocardiograph Report Signed Patient: Shelbie Yang MR#: [id number] : 1980 Acct:[id number] Age/Sex: 44 / F ADM Date: 06/23/24 Loc: Room: [address] [place] [address] Type: DIS IN Attending Dr: Jose Fox DO Ordering Provider: Jose Fox DO Date of Service: 06/24/2401/12/500 ECG/ECG 12 lead ECG: chest pain Copies to: Test Reason : Blood Pressure : */* mmHG Vent. Rate : 49 BPM Atrial Rate : 49 BPM P-R Int : 176 ms QRS Dur : 84 ms QT Int : 490 ms P-R-T Axes : 32 29 19 degrees QTcB Int : 442 ms Sinus bradycardia Low voltage QRS Cannot rule out Anterior infarct (cited on or before 23-Jun-2024) Abnormal ECG When compared with ECG of 23-Jun-2024 12:52, Questionable change in QRS axis Nonspecific T wave abnormality no longer evident in Lateral leads Confirmed by Salvador Kwan ([id number]) on 06/25/2024 3:05:46 PM Referred By: Electronically Signed By: Salvador Kwan Transcribed By: MUS Signed By Salvador Kwan MD 06/25/24 1505 Normal [facility] Erythrocyte distribution wid th [Ratio] by Automated countOrdered By: Jose Fox on 06-24-2024 Erythrocyte distribution width (RBC) [Ratio] 16.4 % High 11.9-15.3 [facility] Comment on above: Performed By: #### S CAN CBC, BNP, BMP, PT, PTT, HCGQUAL, CK, HS TROP #### [facility] [address] [place] [id number] [facility] Erythrocytes [#/volume] in B lood by Automated countOrdered By: Jose Fox on 06-24-2024 RBC (Bld) [#/Vol] 4.90 10*6/uL Normal 3.60-5.00 [facility] Comment on above: Performed By: #### S CAN CBC, BNP, BMP, PT, PTT, HCGQUAL, CK, HS TROP #### [facility] [address] [place] [id number] [place] Glucose [Mass/volume] in Ser um or PlasmaOrdered By: Jose Fox on 06-24-2024 Glucose [Mass/Vol] 98 mg/dL Normal 70-100 [facility] Comment on above: ADA recommended refe rence rangeRandom Glucose Reference Range is dependent on time and content of last meal. Glucose of more than 200 mg/dL in a nonstressed, ambulatory subject supports the diagnosis of Diabetes Mellitus. Order Comment: FASTI NG Y Result Comment: [place] Glucose Reference Range is dependent on time and content of last meal. Glucose of more than 200 mg/dL in a nonstressed, ambulatory subject supports the diagnosis of Diabetes Mellitus. ADA recommended reference range Performed By: #### S CAN CBC, BNP, BMP, PT, PTT, HCGQUAL, CK, HS TROP #### [facility] [address] [place] [phone] [place] Hematocrit [Volume Fraction] of Blood by Automated countOrdered By: Jose Fox on 06-24-2024 Hematocrit (Bld) [Volume fraction] 31.7 % Low 34.0-46.4 [facility] Comment on above: Performed By: #### S CAN CBC, BNP, BMP, PT, PTT, HCGQUAL, CK, HS TROP #### [facility] [address] Hemoglobin [Mass/volume] in BloodOrdered By: Jose Fox on 06-24-2024 Hemoglobin (Bld) [Mass/Vol] 10.4 g/dL Low 11.8-15.4 [facility] Comment on above: Performed By: #### S CAN CBC, BNP, BMP, PT, PTT, HCGQUAL, CK, HS TROP #### [facility] [address] Hepatic Panelon 06-24-2024 Albumin [Mass/Vol] 3.7 g/dL Normal 3.5-5.7 [facility] Comment on above: Order Comment: FASTI NG Y Performed By: #### S CAN CBC, BNP, BMP, PT, PTT, HCGQUAL, CK, HS TROP #### [address] Bilirubin,Indirect 0.5 mg/dL Normal [facility] Comment on above: Order Comment: FASTI NG Y Performed By: #### S CAN CBC, BNP, BMP, PT, PTT, HCGQUAL, CK, HS TROP #### [address] Bilirubin.indirect [Mass/Vol] 0.10 mg/dL Normal 0.03-0.18 [facility] Comment on above: Order Comment: FASTI NG Y Performed By: #### S CAN CBC, BNP, BMP, PT, PTT, HCGQUAL, CK, HS TROP #### [address] Leukocytes [#/volume] correc amanda for nucleated erythrocytes in Blood by Automated counOrdered By: Jose Fox on 06-24-2024 WBC corrected for nucl RBC Auto (Bld) [#/Vol] 6.7 10*3/uL 3.8-11.6 [facility] Leukocytes [#/volume] in Blo od by Automated countOrdered By: Jose Fox on 06-24-2024 WBC (Bld) [#/Vol] 6.7 10*3/uL Normal 3.8-11.6 [facility] Comment on above: Performed By: #### S CAN CBC, BNP, BMP, PT, PTT, HCGQUAL, CK, HS TROP #### [facility] [address] Lipid Panelon 06-24-2024 LDL Cholesterol,Calculated 110 mg/dL High 0-100 [facility] Comment on above: Order Comment: FASTI NG Y Result Comment: LDL ATP III CLASSIFICATION LDL less than 100 mg/dL Optimal LDL 100-129 mg/dL Near or above optimal LDL 130-159 mg/dL Borderline high LDL 160-189 mg/dL High LDL greater than 189 mg/dL Very high Performed By: #### S CAN CBC, BNP, BMP, PT, PTT, HCGQUAL, CK, HS TROP #### [facility] [address] Triglyceride w/Reflex 64 mg/dL Normal 0-149 [facility] Comment on above: Order Comment: FASTI NG Y Result Comment: TRIG ATP III CLASSIFICATION TRIG less than 150 mg/dL Normal TRIG 150-199 mg/dL Borderline high TRIG 200-500 mg/dL High TRIG greater than 500 mg/dL Very high Standard traceable to the Center for Disease Conrtrol and Prevention (CDC) test method. Performed By: #### S CAN CBC, BNP, BMP, PT, PTT, HCGQUAL, CK, HS TROP #### [facility] [address] VLDL CHOLESTEROL 12 mg/dL Normal [facility] Comment on above: Order Comment: FASTI NG Y Performed By: #### S CAN CBC, BNP, BMP, PT, PTT, HCGQUAL, CK, HS TROP #### [facility] [address] Lymphocytes [#/volume] in Bl ood by Automated countOrdered By: Jose Fox on 06-24-2024 Lymphocytes (Bld) [#/Vol] 3.0 10*3/uL Normal 1.00-4.8 [facility] Comment on above: Performed By: #### S CAN CBC, BNP, BMP, PT, PTT, HCGQUAL, CK, HS TROP #### [facility] [address] Lymphocytes/100 leukocytes i n Blood by Automated countOrdered By: Jose Fox on 06-24-2024 Lymphocytes/100 WBC (Bld) 44.8 % Normal . [facility] Comment on above: Performed By: #### S CAN CBC, BNP, BMP, PT, PTT, HCGQUAL, CK, HS TROP #### [facility] [address] MCH [Entitic mass] by Automa amanda countOrdered By: Jose Fox on 06-24-2024 MCH (RBC) [Entitic mass] 21.3 pg Low 24.7-34.3 [facility] Comment on above: Performed By: #### S CAN CBC, BNP, BMP, PT, PTT, HCGQUAL, CK, HS TROP #### [address] MCHC Auto (RBC) [Mass/Vol]Or dered By: Jose Fox on 06-24-2024 MCHC (RBC) [Mass/Vol] 32.8 g/dL 32.0-35.0 [facility] MCV [Entitic volume] by Auto mated countOrdered By: Jose Fox on 06-24-2024 MCV (RBC) [Entitic vol] 64.8 fL Low 80-[address] [facility] Comment on above: Performed By: #### S CAN CBC, BNP, BMP, PT, PTT, HCGQUAL, CK, HS TROP #### [facility] [address] Neutrophils [#/volume] in Bl ood by Automated countOrdered By: Jose Fox on 06-24-2024 Neutrophils (Bld) [#/Vol] 3.2 10*3/uL Normal 1.8-7.7 [facility] Comment on above: Performed By: #### S CAN CBC, BNP, BMP, PT, PTT, HCGQUAL, CK, HS TROP #### [address] No Panel InformationOrdered By: Jose Fox on 06-24-2024 Estimated GFR (CKD-EPI) > 60.0 mL/Min [facility] Creatinine Clearance (Chem 85.64 [facility] Nucleated erythrocytes [Pres ence] in Blood by Automated countOrdered By: Jose Fox on 06-24-2024 Nucleated RBC Auto Ql (Bld) 0.2 /100{WBC} 0-0.5 [facility] Partial Thromboplastin Timeo n 06-24-2024 aPTT Coag (Bld) [Time] 48.7 s High 25.1-36.5 [facility] Comment on above: Result Comment: A he matocrit value greater than 55% may lead to inaccurate results in coagulation testing. Patients having hematocrit values >55% require a special collection tube for coagulation studies. Please contact the laboratory at [phone] for redraw instructions. PERFORMED BY: [place] [address] PATHOLOGIST B[employer] BRANDER EDUARDO CUNHA M.D. Performed By: #### S CAN CBC, BNP, BMP, PT, PTT, HCGQUAL, CK, HS TROP #### [address] aPTT Coag (Bld) [Time] 63.0 s High 25.1-36.5 [facility] Comment on above: Result Comment: A he matocrit value greater than 55% may lead to inaccurate results in coagulation testing. Patients having hematocrit values >55% require a special collection tube for coagulation studies. Please contact the laboratory at [phone] for redraw instructions. PERFORMED BY: [place] [address] PATHOLOGIST [employer] BRANDER EDUARDO CUNHA M.D. Performed By: #### H S TROP, CK #### [address] Platelet mean volume [Entiti c volume] in Blood by Automated countOrdered By: Jose Fox on 06-24-2024 Platelet mean volume (Bld) [Entitic vol] 9.0 fL Normal 6.3-10.7 [facility] Comment on above: Performed By: #### S CAN CBC, BNP, BMP, PT, PTT, HCGQUAL, CK, HS TROP #### [facility] [address] Platelets [#/volume] in Bloo d by Automated countOrdered By: Jose Fox on 06-24-2024 Platelets (Bld) [#/Vol] 157 10*3/uL Normal 150-450 [facility] Comment on above: Performed By: #### S CAN CBC, BNP, BMP, PT, PTT, HCGQUAL, CK, HS TROP #### [facility] [address] Potassium [Moles/volume] in Serum or PlasmaOrdered By: Jose Fox on 06-24-2024 Potassium [Moles/Vol] 4.3 mmol/L Normal 3.5-5.1 [facility] Comment on above: Order Comment: FASTI NG Y Performed By: #### S CAN CBC, BNP, BMP, PT, PTT, HCGQUAL, CK, HS TROP #### [facility] [address] Protein [Mass/volume] in Ser um or PlasmaOrdered By: Jose Fox on 06-24-2024 Protein [Mass/Vol] 6.0 g/dL Low 6.4-8.9 [facility] Comment on above: Order Comment: FASTI NG Y Performed By: #### S CAN CBC, BNP, BMP, PT, PTT, HCGQUAL, CK, HS TROP #### [facility] [address] Serum globulin measurement b y calculation (mass/volume)Ordered By: Jose Fox on 06-24-2024 Globulin (S) [Mass/Vol] 2.3 g/dL Normal [facility] Comment on above: Order Comment: FASTI NG Y Performed By: #### S CAN CBC, BNP, BMP, PT, PTT, HCGQUAL, CK, HS TROP #### [facility] [address] Serum or plasma albumin/glob ulin mass ratioOrdered By: Jose Fox on 06-24-2024 Albumin/Globulin [Mass ratio] 1.6 {ratio} Normal [facility] Comment on above: Order Comment: FASTI NG Y Performed By: #### S CAN CBC, BNP, BMP, PT, PTT, HCGQUAL, CK, HS TROP #### [facility] [address] Serum or plasma anion gap de terminationOrdered By: Jose Fox on 06-24-2024 Anion gap [Moles/Vol] 8.9 mmol/L Normal 6.0-15.0 [facility] Comment on above: Order Comment: FASTI NG Y Performed By: #### S CAN CBC, BNP, BMP, PT, PTT, HCGQUAL, CK, HS TROP #### [facility] [address] Serum or plasma high density lipoprotein (HDL) cholesterol measurementOrdered By: Jose Fox on 06-24-2024 Cholesterol in HDL [Mass/Vol] 47 mg/dL Normal 23-92 [facility] Comment on above: HDL CHOL ATP-III CLA SSIFICATION Cardiovascular RiskHDL > or equal to 60 mg/dL LOWHDL < 40 mg/dL HIGH Order Comment: FASTI NG Y Result Comment: HDL CHOL ATP-III CLASSIFICATION Cardiovascular Risk HDL > or equal to 60 mg/dL LOW HDL < 40 mg/dL HIGH Performed By: #### S CAN CBC, BNP, BMP, PT, PTT, HCGQUAL, CK, HS TROP #### [facility] [address] Serum or plasma non-glucuron idated bilirubin measurement (mass/volume)Ordered By: Jose Fox on 06-24-2024 Bilirubin.indirect [Mass/Vol] 0.5 mg/dL [facility] Serum or plasma total choles terol/high density lipoprotein (HDL) cholesterol mass ratOrdered By: Jose Fox on 06-24-2024 Cholesterol.total/Dodie sterol in HDL [Mass ratio] 3.6 {ratio} Normal <5.0 [facility] Comment on above: Order Comment: SARA Mathis Result Comment: PERF ORMED BY: [address] [address] PATHOLOGIST [employer]ER EDUARDO CUNHA M.D. Performed By: #### S CAN CBC, BNP, BMP, PT, PTT, HCGQUAL, CK, HS TROP #### [facility] [address] [place] [address] [place] Sodium [Moles/volume] in Ser um or PlasmaOrdered By: Jose Fox on 06-24-2024 Sodium [Moles/Vol] 140 mmol/L Normal 136-145 [facility] Comment on above: Order Comment: SARA Mathis Performed By: #### S CAN CBC, BNP, BMP, PT, PTT, HCGQUAL, CK, HS TROP #### [facility] [address] [place] [id number] [facility] Triglyceride [Mass/volume] i n Serum or PlasmaOrdered By: Jose Fox on 06-24-2024 Triglyceride [Mass/Vol] 64 mg/dL 0-[address] [facility] Comment on above: TRIG ATP III CLASSIF ICATIONTRIG less than 150 mg/dL NormalTRIG 150-199 mg/dL Borderline highTRIG 200-500 mg/dL High TRIG greater than 500 mg/dL Very highStandard traceable to the Center for Disease Conrtrol and Prevention (CDC) test method. Troponin I High Sensitivityo n 06-24-2024 Troponin I High Sensitivity 10.3 pg/mL Normal 0.0-15.0 [facility] Comment on above: Result Comment: PERF ORMED BY: [address] [address] PATHOLOGIST [employer]ER EDUARDO CUNHA M.D. Performed By: #### H S TROP, CK #### [facility] [address] [place] [address] Troponin I High Sensitivity 19.2 pg/mL High 0.0-15.0 [facility] Comment on above: Result Comment: PERF ORMED BY: [place] [address] PATHOLOGIST [employer] BRANDER EDUARDO CUNHA M.D. Performed By: #### H S TROP, CK #### [address] Troponin I.cardiac [Mass/vol ume] in Serum or Plasma by Detection limit <= 0.01 ng/Ordered By: Jose Fox on 06-24-2024 Troponin I.cardiac DL <= 0.01 ng/mL [Mass/Vol] 10.3 pg/mL 0.0-15.0 [facility] US carotid doppler BIon US carotid doppler BI [facility] [place] [address] [place] [address] Ultrasound Report Signed Patient: Shelbie Yang MR#: [id number] : 1980 Acct:[id number] Age/Sex: 44 / F ADM Date: 06/23/24 Loc: Room: [address] [place] [address] Type: ADM IN Attending Dr: Jose Fox DO Ordering Provider: Jose Fox DO Date of Service: 06/24/24 US/US carotid doppler BI: dizzy Copies to: Jose Fox DO CAROTID DUPLEX INDICATION: Vertigo PROCEDURE: Color-flow duplex scanning is used to interrogate the extracranial carotid arterial system, as well as both vertebral arteries. Both carotid bifurcations show some smooth homogeneous plaque formation. The proximal right internal carotid artery shows a highest peak systolic velocity of 101 cm/s with an end-diastolic velocity of 32.1 cm/s . The mid internal carotid artery measures 74.6 cm/s peak systolic with an end diastolic velocity of 39 cm/s . The distal segment measures 93.8 cm/s peak systolic with an end diastolic velocity of 35.1 cm/s . The velocities of the right common carotid artery are 65.2 cm/s peak systolic and 19.3 cm/s end-diastolic and 47.7 cm/s peak systolic and 23.8 cm/s end diastolic distally. The peak systolic velocity ratio of the internal to the common carotid artery is 2.12 . The external carotid artery measures 76.2 cm/s peak systolic. The right vertebral artery is patent at 47.6 cm/s peak systolic with antegrade flow. The proximal left internal carotid artery shows a highest peak systolic velocity of 43.3 cm/s with an end-diastolic velocity of 20.7 cm/s . The mid internal carotid artery measures 80.7 cm/s peak systolic with an end diastolic velocity of 37.8 cm/s . The distal segment measures 55.6 cm/s peak systolic with an end diastolic velocity of 23.9 cm/s . The velocities of the left common carotid artery are 71.9 cm/s peak systolic and 20.3 cm/s end-diastolic and 46.7 cm/s peak systolic and 13.8 cm/s end diastolic distally. The peak systolic velocity ratio of the internal to the common carotid artery is 1.73 . The external carotid artery measures 58.8 cm/s peak systolic. The left vertebral artery is patent at 39.5 cm/s peak systolic with antegrade flow. US/US carotid doppler BI IMPRESSION: MILD PLAQUE FORMATION IS NOTED BILATERALLY, WITH LESS THAN 50% STENOSIS OF BOTH EXTRACRANIAL INTERNAL CAROTID ARTERY. BOTH VERTEBRAL ARTERIES ARE PATENT WITH ANTEGRADE FLOW. Impression dictated by: Artemio Acuna M.D.06/24/2024 4:22 PM Dictation Location: [place] [address] Tech: Lynette Moore Transcribed By: HARISH 06/24/24 1622 Dictated By: Artemio Acuna MD 06/24/24 1620 Signed By: 06/24/24 1622 Normal [facility] Urea nitrogen [Mass/volume] in Serum or PlasmaOrdered By: Jose Fox on 06-24-2024 Urea nitrogen [Mass/Vol] 11 mg/dL Normal 7-25 [facility] Comment on above: Order Comment: FASTI NG Y Performed By: #### S CAN CBC, BNP, BMP, PT, PTT, HCGQUAL, CK, HS TROP #### [facility] [address] [place] [address] [facility] A1C with Estimated Average G lisa 06-23-2024 Glucose [Mass/Vol] 114 mg/dL Normal [facility] Comment on above: Result Comment: PERF ORMED BY: [address] [place] [address] PATHOLOGIST BASE BRANDER EDUARDO CUNHA M.D. Performed By: #### S CAN CBC, BNP, BMP, PT, PTT, HCGQUAL, CK, HS TROP #### [facility] [address] [place] [address] [place] Acanthocytes [Presence] in B lood by Light microscopyOrdered By: Katie Villarreal on 06-23-2024 Acanthocytes LM Ql (Bld) [facility] Activated partial thrombopla stin time (aPTT) in platelet poor plasma by coagulation aOrdered By: Katie Villarreal on 06-23-2024 aPTT Coag (PPP) [Time] 33.2 s 25.1-36.5 [facility] Comment on above: A hematocrit value g reater than 55% may lead to inaccurate results in coagulation testing. Patients having hematocrit values >55% require a special collection tube for coagulation studies. Please contact the laboratory at [phone] for redraw instructions. Anisocytosis [Presence] in B lood by Light microscopyOrdered By: Katie Villarreal on 06-23-2024 Anisocytosis Ql (Bld) Moderate Normal [facility] Comment on above: Performed By: #### S CAN CBC, BNP, BMP, PT, PTT, HCGQUAL, CK, HS TROP #### [facility] [address] [place] [address] [place] Automated basophil %Ordered By: Katie Villarreal on 06-23-2024 Basophils/100 WBC (Bld) 0.9 % Normal . [facility] Comment on above: Performed By: #### S CAN CBC, BNP, BMP, PT, PTT, HCGQUAL, CK, HS TROP #### [facility] [address] [place] [address] [facility] Automated basophil countOrde red By: Katie Villarreal on 06-23-2024 Basophils (Bld) [#/Vol] 0.1 10*3/uL Normal 0.0-0.2 [facility] Comment on above: Performed By: #### S CAN CBC, BNP, BMP, PT, PTT, HCGQUAL, CK, HS TROP #### [facility] [address] Automated blood monocyte cou ntOrdered By: Katie Villarreal on 06-23-2024 Monocytes (Bld) [#/Vol] 0.3 10*3/uL Normal 0.0-0.8 [facility] Comment on above: Performed By: #### S CAN CBC, BNP, BMP, PT, PTT, HCGQUAL, CK, HS TROP #### [address] Automated eosinophil %Ordere d By: Katie Villarreal on 06-23-2024 Eosinophils/100 WBC (Bld) 1.2 % Normal . [facility] Comment on above: Performed By: #### S CAN CBC, BNP, BMP, PT, PTT, HCGQUAL, CK, HS TROP #### [address] Automated eosinophil countOr dered By: Katie Villarreal on 06-23-2024 Eosinophils (Bld) [#/Vol] 0.1 10*3/uL Normal 0.0-0.45 [facility] Comment on above: Performed By: #### S CAN CBC, BNP, BMP, PT, PTT, HCGQUAL, CK, HS TROP #### [facility] [address] Automated monocyte %Ordered By: Kaite Villarreal on 06-23-2024 Monocytes/100 WBC (Bld) 4.1 % Normal . [facility] Comment on above: Performed By: #### S CAN CBC, BNP, BMP, PT, PTT, HCGQUAL, CK, HS TROP #### [address] Automated neutrophil %Ordere d By: Katie Villarreal on 06-23-2024 Neutrophils/100 WBC (Bld) 63.5 % Normal . [facility] Comment on above: Performed By: #### S CAN CBC, BNP, BMP, PT, PTT, HCGQUAL, CK, HS TROP #### [address] BNP ser/plasOrdered By: Turner Villarreal on 06-23-2024 Natriuretic peptide B (Bld) [Mass/Vol] 18.0 pg/mL Normal 5-100 [facility] Comment on above: Result Comment: PERF ORMED BY: [place] [address] PATHOLOGIST B[employer] BRANDER EDUARDO CUNHA M.D. Performed By: #### S CAN CBC, BNP, BMP, PT, PTT, HCGQUAL, CK, HS TROP #### [address] Basic Metabolic Panelon Creatinine Clr Calc Pharmacy 81.60 Normal [facility] Comment on above: Performed By: #### S CAN CBC, BNP, BMP, PT, PTT, HCGQUAL, CK, HS TROP #### [address] GFR/1.73 sq M.predicted MDRD (S/P/Bld) [Vol rate/Area] mL/min/{1.73_m2} Normal [facility] Comment on above: Performed By: #### S CAN CBC, BNP, BMP, PT, PTT, HCGQUAL, CK, HS TROP #### [address] Calcium [Mass/volume] in Ser um or PlasmaOrdered By: Katie Villarreal on 06-23-2024 Calcium [Mass/Vol] 8.8 mg/dL Normal 8.6-10.3 [facility] Comment on above: Performed By: #### S CAN CBC, BNP, BMP, PT, PTT, HCGQUAL, CK, HS TROP #### [address] Carbon dioxide, total [Moles /volume] in Serum or PlasmaOrdered By: Katie Villarreal on 06-23-2024 CO2 [Moles/Vol] 26.2 mmol/L Normal 21.0-31.0 [facility] Comment on above: Performed By: #### S CAN CBC, BNP, BMP, PT, PTT, HCGQUAL, CK, HS TROP #### [facility] [address] [place] [address] [place] Chloride [Moles/volume] in S og or PlasmaOrdered By: Katie Villarreal on 06-23-2024 Chloride [Moles/Vol] 106 mmol/L Normal 98-107 [facility] Comment on above: Performed By: #### S CAN CBC, BNP, BMP, PT, PTT, HCGQUAL, CK, HS TROP #### [facility] [address] [place] [address] [place] Choriogonadotropin.beta subu nit [Units/volume] in Serum or PlasmaOrdered By: Katie Villarreal on 06-23-2024 HCG.beta subunit Qn Negative [facility] Creatine Kinaseon 06-23-2024 CK [Catalytic activity/Vol] 56 U/L Normal 30-223 [facility] Comment on above: Performed By: #### H S TROP, CK #### [facility] [address] [place] [address] [place] CK [Catalytic activity/Vol] 69 U/L Normal 30-223 [facility] Comment on above: Performed By: #### H S TROP, CK #### [facility] [address] [place] [id number] [place] CK [Catalytic activity/Vol] 63 U/L Normal 30-223 [facility] Comment on above: Performed By: #### H S TROP, CK #### [facility] [address] [place] [id number] [place] Creatine kinase [Enzymatic a ctivity/volume] in Serum or PlasmaOrdered By: Katie Villarreal on 06-23-2024 CK [Catalytic activity/Vol] 72 U/L Normal 30-223 [facility] Comment on above: Performed By: #### S CAN CBC, BNP, BMP, PT, PTT, HCGQUAL, CK, HS TROP #### [facility] [address] [place] [id number] [place] Creatinine [Mass/volume] in Serum or PlasmaOrdered By: Katie Villarreal on 06-23-2024 Creatinine [Mass/Vol] 0.86 mg/dL Normal 0.60-1.20 [facility] Comment on above: Performed By: #### S CAN CBC, BNP, BMP, PT, PTT, HCGQUAL, CK, HS TROP #### [facility] [address] [place] [address] [facility] ECG 12 lead ECGon 06-23-2024 ECG 12 lead ECG [facility] [place] [address] [place] [address] Electrocardiograph Report Signed Patient: Shelbie Yang MR#: [id number] : 1980 Acct:[id number] Age/Sex: 44 / F ADM Date: 06/23/24 Loc: ER Room: Type: [facility] ER Attending Dr: Ordering Provider: Katie Villarreal MD Date of Service: 06/23/2412/15/1310 ECG/ECG 12 lead ECG: Chest Pain Copies to: Test Reason : Blood Pressure : 227/97 mmHG Vent. Rate : 62 BPM Atrial Rate : 62 BPM P-R Int : 168 ms QRS Dur : 80 ms QT Int : 426 ms P-R-T Axes : 48 88 1 degrees QTcB Int : 432 ms Normal sinus rhythm nonspecific t wave flattening, t wave inversion anteriorly Abnormal ECG No previous ECGs available Confirmed by Katie Villarreal MD ([id number]) on 06/23/2024 2:23:50 PM Referred By: Electronically Signed By: Katie Villarreal MD Transcribed By: MUS Signed By Katie Villarreal MD 12/15 1423 Normal [facility] Erythrocyte distribution wid th [Ratio] by Automated countOrdered By: Katie Villarreal on 06-23-2024 Erythrocyte distribution width (RBC) [Ratio] 16.3 % High 11.9-15.3 [facility] Comment on above: Performed By: #### S CAN CBC, BNP, BMP, PT, PTT, HCGQUAL, CK, HS TROP #### [facility] [address] [place] [id number] [place] Erythrocytes [#/volume] in B lood by Automated countOrdered By: Katie Villarreal on 06-23-2024 RBC (Bld) [#/Vol] 5.17 10*6/uL High 3.60-5.00 [facility] Comment on above: Performed By: #### S CAN CBC, BNP, BMP, PT, PTT, HCGQUAL, CK, HS TROP #### [facility] [address] Ferritin [Mass/volume] in Se rum or PlasmaOrdered By: Jose Fox on 06-23-2024 Ferritin [Mass/Vol] 23.2 ng/mL Normal 11.0-306.8 [facility] Comment on above: Performed By: #### S CAN CBC, BNP, BMP, PT, PTT, HCGQUAL, CK, HS TROP #### [facility] [address] Folate [Mass/volume] in Seru m or PlasmaOrdered By: Jose Fox on 06-23-2024 Folate [Mass/Vol] 7.1 ng/mL >5.9 [facility] Comment on above: Folate reference ran ge: >5.9 ng/mlThe WHO technical consultation on folate and vitamin [id number] has determined that folate concentrations lessthan 4 ng/ml are considered deficient. Glucose [Mass/volume] in Ser um or PlasmaOrdered By: Katie Villarreal on 06-23-2024 Glucose [Mass/Vol] 91 mg/dL Normal 70-100 [facility] Comment on above: ADA recommended refe rence rangeRandom Glucose Reference Range is dependent on time and content of last meal. Glucose of more than 200 mg/dL in a nonstressed, ambulatory subject supports the diagnosis of Diabetes Mellitus. Result Comment: [place] Glucose Reference Range is dependent on time and content of last meal. Glucose of more than 200 mg/dL in a nonstressed, ambulatory subject supports the diagnosis of Diabetes Mellitus. ADA recommended reference range Performed By: #### S CAN CBC, BNP, BMP, PT, PTT, HCGQUAL, CK, HS TROP #### [facility] [address] Glucose mean value [Mass/vol ume] in Blood Estimated from glycated hemoglobinOrdered By: Jose Fox on 06-23-2024 Average glucose Estimated from glycated hemoglobin (Bld) [Mass/Vol] 114 mg/dL [facility] HCG,Qualitative Serumon HCG,Qualitative Serum Negative Normal [facility] Comment on above: Result Comment: PERF ORMED BY: [place] [address] PATHOLOGIST BASE BRANDER EDUARDO CUNHA M.D. Performed By: #### S CAN CBC, BNP, BMP, PT, PTT, HCGQUAL, CK, HS TROP #### [facility] [address] Hematocrit [Volume Fraction] of Blood by Automated countOrdered By: Katie Villarreal on 06-23-2024 Hematocrit (Bld) [Volume fraction] 33.8 % Low 34.0-46.4 [facility] Comment on above: Performed By: #### S CAN CBC, BNP, BMP, PT, PTT, HCGQUAL, CK, HS TROP #### [facility] [address] Hemoglobin A1c percentageOrd ered By: Jose Fox on 06-23-2024 HbA1c (Bld) [Mass fraction] 5.6 % Normal 4.3-5.6 [facility] Comment on above: Increased risk for d iabetes: 5.7 - 6.4diabetes: >6.4glycemic control for adults with diabetes: <7.0 Result Comment: Incr eased risk for diabetes: 5.7 - 6.4 diabetes: >6.4 glycemic control for adults with diabetes: <7.0 Performed By: #### S CAN CBC, BNP, BMP, PT, PTT, HCGQUAL, CK, HS TROP #### [facility] [address] [place] [address] [place] Hemoglobin [Mass/volume] in BloodOrdered By: Katie Villarreal on 06-23-2024 Hemoglobin (Bld) [Mass/Vol] 10.8 g/dL Low 11.8-15.4 [facility] Comment on above: Performed By: #### S CAN CBC, BNP, BMP, PT, PTT, HCGQUAL, CK, HS TROP #### [facility] [address] Hypochromia LM Ql (Bld)Order ed By: Katie Villarreal on 06-23-2024 Hypochromia Ql (Bld) Marked [facility] INR in Platelet poor plasma by Coagulation assayOrdered By: Katie Villarreal on 06-23-2024 INR Coag (PPP) [Relative time] 1.2 {INR} Normal [facility] Comment on above: INR Therapeutic Rang e A) Pre- and Peroperative OAT started two weeks before surgery. NOT HIP SURGERY: 1.5 - 2.5 HIP SURGERY: 2 - 3B) Primary and secondary prevention of venous THROMBOSIS: 2 - 3C) Active venous thrombosis, pulmonary embolismand prevention of recurrent venous thrombosis: 2 - 3D) Prevention of arterial thromboembolismincluding patients with mechanical heart valves: 3 - 4.5 Result Comment: INR Therapeutic Range A) Pre- and Peroperative OAT started two weeks before surgery. NOT HIP SURGERY: 1.5 - 2.5 HIP SURGERY: 2 - 3 B) Primary and secondary prevention of venous THROMBOSIS: 2 - 3 C) Active venous thrombosis, pulmonary embolism and prevention of recurrent venous thrombosis: 2 - 3 D) Prevention of arterial thromboembolism including patients with mechanical heart valves: 3 - 4.5 Performed By: #### S CAN CBC, BNP, BMP, PT, PTT, HCGQUAL, CK, HS TROP #### [facility] [address] Iron [Mass/volume] in Serum or PlasmaOrdered By: Jose Fox on 06-23-2024 Iron [Mass/Vol] 64 ug/dL Normal 50-212 [facility] Comment on above: Performed By: #### S CAN CBC, BNP, BMP, PT, PTT, HCGQUAL, CK, HS TROP #### [facility] [address] Iron and TIBC Profileon % Iron Saturation 22.9 % Normal 20-50 [facility] Comment on above: Performed By: #### S CAN CBC, BNP, BMP, PT, PTT, HCGQUAL, CK, HS TROP #### [facility] [address] Total Iron Binding Capacity 280 ug/dL Normal 255-450 [facility] Comment on above: Performed By: #### S CAN CBC, BNP, BMP, PT, PTT, HCGQUAL, CK, HS TROP #### [facility] [address] Iron binding capacity [Mass/ volume] in Serum or PlasmaOrdered By: Jose Fox on 06-23-2024 Iron binding capacity [Mass/Vol] 280 ug/dL 255-450 [facility] Iron saturation [Mass Fracti on] in Serum or PlasmaOrdered By: Jose Fox on 06-23-2024 Iron saturation [Mass fraction] 22.9 % 20-50 [facility] Leukocytes [#/volume] correc amanda for nucleated erythrocytes in Blood by Automated counOrdered By: Katie Villarreal on 06-23-2024 WBC corrected for nucl RBC Auto (Bld) [#/Vol] 8.4 10*3/uL 3.8-11.6 [facility] Leukocytes [#/volume] in Blo od by Automated countOrdered By: Katie Villarreal on 06-23-2024 WBC (Bld) [#/Vol] 8.4 10*3/uL Normal 3.8-11.6 [facility] Comment on above: Performed By: #### S CAN CBC, BNP, BMP, PT, PTT, HCGQUAL, CK, HS TROP #### [facility] [address] [place] [address] [place] Lymphocytes [#/volume] in Bl ood by Automated countOrdered By: Katie Villarreal on 06-23-2024 Lymphocytes (Bld) [#/Vol] 2.5 10*3/uL Normal 1.00-4.8 [facility] Comment on above: Performed By: #### S CAN CBC, BNP, BMP, PT, PTT, HCGQUAL, CK, HS TROP #### [facility] [address] [place] [address] [place] Lymphocytes/100 leukocytes i n Blood by Automated countOrdered By: Katie Villarreal on 06-23-2024 Lymphocytes/100 WBC (Bld) 30.3 % Normal . [facility] Comment on above: Performed By: #### S CAN CBC, BNP, BMP, PT, PTT, HCGQUAL, CK, HS TROP #### [facility] [address] [place] [address] MCH [Entitic mass] by Automa amanda countOrdered By: Katie Villarreal on 06-23-2024 MCH (RBC) [Entitic mass] 21.0 pg Low 24.7-34.3 [facility] Comment on above: Performed By: #### S CAN CBC, BNP, BMP, PT, PTT, HCGQUAL, CK, HS TROP #### [facility] [address] [place] [address] MCHC Auto (RBC) [Mass/Vol]Or dered By: Katie Villarreal on 06-23-2024 MCHC (RBC) [Mass/Vol] 32.0 g/dL 32.0-35.0 [facility] MCV [Entitic volume] by Auto mated countOrdered By: Katie Villarreal on 06-23-2024 MCV (RBC) [Entitic vol] 65.4 fL Low 80-[address] [facility] Comment on above: Performed By: #### S CAN CBC, BNP, BMP, PT, PTT, HCGQUAL, CK, HS TROP #### [facility] [address] [place] [address] Microcytes LM Ql (Bld)Ordere d By: Katie Villarreal on 06-23-2024 Microcytes Ql (Bld) Moderate [facility] Monocyte distribution width [Entitic volume] in Blood by AutomatedOrdered By: Katie Villarreal on 06-23-2024 Monocyte distribution width Auto (Bld) [Entitic vol] Test not performed % 0.00-20.00 [facility] Comment on above: Unable to calculate MDW because the Absolute Monocyte Count is <0.8. Neutrophils [#/volume] in Bl ood by Automated countOrdered By: Katie Villarreal on 06-23-2024 Neutrophils (Bld) [#/Vol] 5.3 10*3/uL Normal 1.8-7.7 [facility] Comment on above: Performed By: #### S CAN CBC, BNP, BMP, PT, PTT, HCGQUAL, CK, HS TROP #### [facility] [address] No Panel InformationOrdered By: Katie Villarreal on 06-23-2024 Estimated GFR (CKD-EPI) > 60.0 mL/Min [facility] Creatinine Clearance (Chem 81.60 [facility] Nucleated erythrocytes [Pres ence] in Blood by Automated countOrdered By: Katie Villarreal on 06-23-2024 Nucleated RBC Auto Ql (Bld) 0.1 /100{WBC} 0-0.5 [facility] Ovalocyte detectionOrdered B y: Katie Villarreal on 06-23-2024 Ovalocytes LM Ql (Bld) Slight Fi [facility]aFormerly [facility] Partial Thromboplastin Timeo n 06-23-2024 aPTT Coag (Bld) [Time] 80.5 s High 25.1-36.5 Th e [facility] Comment on above: Order Comment: List the anticoagulant: HEPARIN/COUMADIN Result Comment: A he matocrit value greater than 55% may lead to inaccurate results in coagulation testing. Patients having hematocrit values >55% require a special collection tube for coagulation studies. Please contact the laboratory at [phone] for redraw instructions. PERFORMED BY: [place] [address] PATHOLOGIST BASE BRANDER EDUARDO CUNHA M.D. Performed By: #### S CAN CBC, BNP, BMP, PT, PTT, HCGQUAL, CK, HS TROP #### [facility] [address] aPTT Coag (Bld) [Time] 33.2 s Normal 25.1-36.5 Th e [facility] Comment on above: Result Comment: A he matocrit value greater than 55% may lead to inaccurate results in coagulation testing. Patients having hematocrit values >55% require a special collection tube for coagulation studies. Please contact the laboratory at [phone] for redraw instructions. PERFORMED BY: [place] [phone] PATHOLOGIST B[employer] BRANDER EDUARDO CUNHA M.D. Performed By: #### S CAN CBC, BNP, BMP, PT, PTT, HCGQUAL, CK, HS TROP #### [facility] [address] Platelet adequacy [Presence] in Blood by Light microscopyOrdered By: Katie Villarreal on 06-23-2024 Platelets LM Ql (Bld) Normal Normal [facility] Platelet mean volume [Entiti c volume] in Blood by Automated countOrdered By: Katie Villarreal on 06-23-2024 Platelet mean volume (Bld) [Entitic vol] 9.1 fL Normal 6.3-10.7 [facility] Comment on above: Performed By: #### S CAN CBC, BNP, BMP, PT, PTT, HCGQUAL, CK, HS TROP #### [address] Platelet morphology finding [Identifier] in BloodOrdered By: Katie Villarreal on 06-23-2024 Platelet morphology finding Nom (Bld) Normal Normal [facility] Platelets [#/volume] in Bloo d by Automated countOrdered By: Katie Villarreal on 06-23-2024 Platelets (Bld) [#/Vol] 191 10*3/uL Normal 150-450 [facility] Comment on above: Performed By: #### S CAN CBC, BNP, BMP, PT, PTT, HCGQUAL, CK, HS TROP #### [facility] [address] [place] [address] [place] Poikilocytosis [Presence] in Blood by Light microscopyOrdered By: Katie Villarreal on 06-23-2024 Poikilocytosis LM Ql (Bld) Moderate [facility] Potassium [Moles/volume] in Serum or PlasmaOrdered By: Katie Villarreal on 06-23-2024 Potassium [Moles/Vol] 3.4 mmol/L Low 3.5-5.1 [facility] Comment on above: Performed By: #### S CAN CBC, BNP, BMP, PT, PTT, HCGQUAL, CK, HS TROP #### [place] [id number] [place] Prothrombin time (PT)Ordered By: Katie Villarreal on 06-23-2024 PT Coag (PPP) [Time] 13.3 s High 9.0-12.9 [facility] Comment on above: A hematocrit value g reater than 55% may lead to inaccurate results in coagulation testing. Patients having hematocrit values >55% require a special collection tube for coagulation studies. Please contact the laboratory at [phone] for redraw instructions. Result Comment: A he matocrit value greater than 55% may lead to inaccurate results in coagulation testing. Patients having hematocrit values >55% require a special collection tube for coagulation studies. Please contact the laboratory at [phone] for redraw instructions. Performed By: #### S CAN CBC, BNP, BMP, PT, PTT, HCGQUAL, CK, HS TROP #### [address] RBC morphologyOrdered By: Ellen Villarreal on 06-23-2024 RBC morphology finding Nom (Bld) N/A [facility] Scan and CBCon 06-23-2024 Acanthocytes Slight Normal The [facility] Comment on above: Performed By: #### S CAN CBC, BNP, BMP, PT, PTT, HCGQUAL, CK, HS TROP #### [facility] [address] [place] [address] Hypochromasia Marked Normal [facility] Comment on above: Performed By: #### S CAN CBC, BNP, BMP, PT, PTT, HCGQUAL, CK, HS TROP #### [facility] [address] [place] [address] Mean Corpuscular HGB Conc 32.0 g/dL Normal 32.0-35.0 [facility] Comment on above: Performed By: #### S CAN CBC, BNP, BMP, PT, PTT, HCGQUAL, CK, HS TROP #### [address] Microcytosis Moderate Normal [facility] Comment on above: Performed By: #### S CAN CBC, BNP, BMP, PT, PTT, HCGQUAL, CK, HS TROP #### [facility] [address] Monocyte Distribution Width Not performed Normal 0.00-20.00 [facility] Comment on above: Result Comment: Unab le to calculate MDW because the Absolute Monocyte Count is <0.8. Performed By: #### S CAN CBC, BNP, BMP, PT, PTT, HCGQUAL, CK, HS TROP #### [facility] [address] NRBC% 0.1 /100{WBC} Normal 0-0.5 [facility] Comment on above: Performed By: #### S CAN CBC, BNP, BMP, PT, PTT, HCGQUAL, CK, HS TROP #### [address] Ovalocytes Slight Normal [facility] Comment on above: Performed By: #### S CAN CBC, BNP, BMP, PT, PTT, HCGQUAL, CK, HS TROP #### [address] Platelet Estimate Normal Normal Normal [facility] Comment on above: Performed By: #### S CAN CBC, BNP, BMP, PT, PTT, HCGQUAL, CK, HS TROP #### [address] Platelet Morphology Normal Normal Normal The [facility] Comment on above: Result Comment: PERF ORMED BY: [place] [address] PATHOLOGIST BASE BRANDER EDUARDO CUNHA M.D. Performed By: #### S CAN CBC, BNP, BMP, PT, PTT, HCGQUAL, CK, HS TROP #### [address] Poikilocytosis Moderate Normal [facility] Comment on above: Performed By: #### S CAN CBC, BNP, BMP, PT, PTT, HCGQUAL, CK, HS TROP #### [address] Schistocytes Slight Normal [facility] Comment on above: Performed By: #### S CAN CBC, BNP, BMP, PT, PTT, HCGQUAL, CK, HS TROP #### [facility] [address] Target Cells Slight Normal [facility] Comment on above: Performed By: #### S CAN CBC, BNP, BMP, PT, PTT, HCGQUAL, CK, HS TROP #### [facility] [address] Tear Drop Cells Slight Normal [facility] Comment on above: Performed By: #### S CAN CBC, BNP, BMP, PT, PTT, HCGQUAL, CK, HS TROP #### [facility] [address] Schistocytes [Presence] in B lood by Light microscopyOrdered By: Katie Villarreal on 06-23-2024 Schistocytes LM Ql (Bld) Slight [facility] Serum or plasma anion gap de terminationOrdered By: Katie Villarreal on 06-23-2024 Anion gap [Moles/Vol] 10.2 mmol/L Normal 6.0-15.0 [facility] Comment on above: Performed By: #### S CAN CBC, BNP, BMP, PT, PTT, HCGQUAL, CK, HS TROP #### [facility] [address] [place] [address] Sodium [Moles/volume] in Ser um or PlasmaOrdered By: Katie Villarreal on 06-23-2024 Sodium [Moles/Vol] 139 mmol/L Normal 136-145 [facility] Comment on above: Performed By: #### S CAN CBC, BNP, BMP, PT, PTT, HCGQUAL, CK, HS TROP #### [facility] [address] Target cellsOrdered By: Turner Villarreal on 06-23-2024 Target cells LM Ql (Bld) [facility] cell detectionOrder ed By: Katie Villarreal on 06-23-2024 Dacrocytes LM Ql (Bld) Slight [facility] Thyrotropin [Units/volume] i n Serum or PlasmaOrdered By: Jose Fox on 06-23-2024 TSH Qn 89.80 m[IU]/L High 0.45-5.33 [facility] Comment on above: Performed By: #### S CAN CBC, BNP, BMP, PT, PTT, HCGQUAL, CK, HS TROP #### [address] Thyroxine (T4) free [Mass/vo lume] in Serum or PlasmaOrdered By: Jose Cortezjhdony on 06-23-2024 Free T4 [Mass/Vol] 0.27 ng/dL Low 0.61-1.12 [facility] Comment on above: Performed By: #### S CAN CBC, BNP, BMP, PT, PTT, HCGQUAL, CK, HS TROP #### [address] Transferrin [Mass/volume] in Serum or PlasmaOrdered By: Jose Fox on 06-23-2024 Transferrin [Mass/Vol] 200 mg/dL Low 203-362 [facility] Comment on above: Performed By: #### S CAN CBC, BNP, BMP, PT, PTT, HCGQUAL, CK, HS TROP #### [place] [address] [place] Troponin I High Sensitivityo n 06-23-2024 Troponin I High Sensitivity 31.0 pg/mL High 0.0-15.0 [facility] Comment on above: Result Comment: PERF ORMED BY: [place] [address] PATHOLOGIST B[employer] BRANDER EDUARDO CUNHA M.D. Performed By: #### H S TROP, CK #### [facility] [address] [place] [address] Troponin I High Sensitivity 47.9 pg/mL High 0.0-15.0 [facility] Comment on above: Result Comment: PERF ORMED BY: [place] [address] PATHOLOGIST BASE BRANDER EDURADO CUNHA M.D. Performed By: #### H S TROP, CK #### [place] [address] [place] Troponin I High Sensitivity 66.1 pg/mL Off scale high 0.0-15.0 [facility] Comment on above: Result Comment: Crit ical Result : Called to and read back by: CHETAN LALA at: 06/23/2024 18:54:50 by:LFM PERFORMED BY: [place] [address] PATHOLOGIST B[employer] BRANDER EDUARDO CUNHA M.D. Performed By: #### H S TROP, CK #### [address] Troponin I High Sensitivity 48.1 pg/mL High 0.0-15.0 [facility] Comment on above: Result Comment: PERF ORMED BY: [place] [address] PATHOLOGIST BASE BRANDER EDUARDO CUNHA M.D. Performed By: #### H S TROP, CK #### [address] Troponin I High Sensitivity 7.3 pg/mL Normal 0.0-15.0 [facility] Comment on above: Result Comment: PERF ORMED BY: [place] [address] PATHOLOGIST BASE BRANDER EDUARDO CUNHA M.D. Performed By: #### S CAN CBC, BNP, BMP, PT, PTT, HCGQUAL, CK, HS TROP #### [address] Troponin I.cardiac [Mass/vol ume] in Serum or Plasma by Detection limit <= 0.01 ng/Ordered By: Katie Villarreal on 06-23-2024 Troponin I.cardiac DL <= 0.01 ng/mL [Mass/Vol] 48.1 pg/mL High 0.0-15.0 [facility] Urea nitrogen [Mass/volume] in Serum or PlasmaOrdered By: Katie Villarreal on 06-23-2024 Urea nitrogen [Mass/Vol] 9 mg/dL Normal 7-25 [facility] Comment on above: Performed By: #### S CAN CBC, BNP, BMP, PT, PTT, HCGQUAL, CK, HS TROP #### [facility] [address] [place] [id number] [facility] Vit. B12/Folate Profileon Folate 7.1 ng/mL Normal >5.9 [facility] Comment on above: Result Comment: Anju te reference range: >5.9 ng/ml The WHO technical consultation on folate and vitamin b12 deficiencies has determined that folate concentrations less than 4 ng/ml are considered deficient. Performed By: #### S CAN CBC, BNP, BMP, PT, PTT, HCGQUAL, CK, HS TROP #### [facility] [address] Vitamin B12 ser/plasOrdered By: Jose Fox on 06-23-2024 Cobalamin (Vitamin B12) [Mass/Vol] 398 pg/mL Normal 180-914 [facility] Comment on above: Performed By: #### S CAN CBC, BNP, BMP, PT, PTT, HCGQUAL, CK, HS TROP #### [facility] [address] [place] [id number] [facility] Vitamin D 25 Hydroxy Totalon 06-23-2024 Vitamin D 25 Hydroxy Total 37.5 ng/mL Normal 30-100 [facility] Comment on above: Result Comment: [place] MIN D STATUS 25(OH)VITAMIN D RANGE (ng/mL) Deficient <20 Insufficient 20 to <30 Sufficient 30 to 100 Reference: Corrine MF,Eusebio NC, Christie TUCKER, et al. Evaluation,treatment, and prevention of vitamin D deficiency; an Endocrine Society clinical practice guideline. JCEM. 2010; 96(7):1911-30. PERFORMED BY: [place] [address] PATHOLOGIST BASE BRANDER EDUARDO CUNHA M.D. Performed By: #### S CAN CBC, BNP, BMP, PT, PTT, HCGQUAL, CK, HS TROP #### [facility] [address] [place] [id number] [facility] Vitamin D+Metabolites [Mass/ volume] in Serum or PlasmaOrdered By: Jose Fox on 06-23-2024 Vitamin D+Metabolites [Mass/Vol] 37.5 ng/mL 30-100 [facility] Comment on above: VITAMIN D STATUS 25( [place])VITAMIN D RANGE (ng/mL) Deficient <20 Insufficient 20 to <30Sufficient 30 to 100Reference: Corrine MF,Eusebio NC, Christie TUCKER, et al. Evaluation,treatment, and prevention of vitamin D deficiency; an Endocrine Society clinical practice guideline. JCEM. 2010; 96(7):1911-30. XR chest 2V*on 06-23-2024 XR chest 2V* [facility] [place] [address] [place] [address] XRay Report Signed Patient: Shelbie Yang MR#: [id number] : 1980 Acct:[id number] Age/Sex: 44 / F ADM Date: 06/23/24 Loc: ER Room: Type: [facility] ER Attending Dr: Copies to: Katie Villarreal MD Ordering Provider: Katie Villarreal MD Date of Service: 06/23/24 XR/XR chest 2V*: Chest Pain PA AND LATERAL CHEST: CLINICAL HISTORY: Shortness of breath and mid back pain. COMPARISON: Thoracic spine 02/19/2023 There is no focal parenchymal consolidation, effusion or pneumothorax. The cardiac, hilar and mediastinal silhouettes are similar and the asymmetry extending laterally on the right was present on the comparison thoracic study and might be an anterior diaphragmatic hernia. There is no vascular congestion. The visualized bony thorax is intact. There is subtle dextroscoliotic curvature an tiny endplate spurs. XR/XR chest 2V* IMPRESSION: NO ACUTE CARDIOPULMONARY ABNORMALITY. Impression dictated by: Carolann Patiño M.D.06/23/2024 2:46 PM Dictation Location: [place] [address] Transcribed By: HARISH 06/23/24 1446 Dictated By: Carolann Patiño MD 06/23/24 1443 Signed By: 06/23/24 1446 Normal [facility] HCG ( test) IA.rapi d Ql (U)Ordered By: Michael Rascon on 07-30-2023 HCG ( test) Ql (U) Negative [facility] Coding Summary.on 02-14-2023 Coding Summary. CD:[id number] Ww+P GhlYWQ+QD9XYHQgW61cpFZoe T0dA6CQVNrGVmcgSSGTQOeGI aWvymXsVD9tfWOnYHOi IC8+MI1sGMEwYrkcmJBry0N9 rJP0W66kvq2gQEwxbPW2CQQp QuLtndtfn0pfvEy9UOnxRwhs OyBt YUQqgI76OHB0yR87Bp17tGGm vOQcj3zexDx1BqEsMFQqTIU8 tGjtNWjqx0PaKKJyK08gpJQm c2U6 ZXMssFcdmLQiNnVahSV2qJ3n CPupakero9lrxgkzJtk6ac50 hLMpt5A2oZL0B2JbljM4IFSx bGQg AqvjtYUAeG7suvutd9ytzxbz AcZuKJRwBCt8FCe2CSRbrCkn JcVnLY92XSP9IOKakeTtP3St LWFs mXuoNdG0g8R1Df0QQ7PMXysy G3GPJSSEXXqcxUZ+HK83wd62 L6ExRssrFdg9OGRvGPR6fSF1 aD0n XDJjHGnym9R0yRL9S3XqdeVl vn6zp9tiYSJeUNdtA99yzEWr l0B3JDFiqAN1HSYyhBpvCmNu aG93 Oyc+UIHkjXueb7LjZaixq5un g8yhhHx6AjrsSLOylmOadHwh FDI9k2NqXc6fLHOicHE9bFY2 aD0i AdIgKeI5KUtmP719UrYesAGs OylhK51xN9FgxKE+PHRyPjx0 KOSlwGtsWA3iX6LkGNOfqqir bGVm vHaqZH5iXUBxyeohJVCazM1b VXKtE7g5VgRlHcG6UIvmC2Sm DPFvcsnvSi95hS6gEjJpHwE7 MGlu Q4SzdpA8VUBblFHnPZrwFNG9 Q90rq2E7RGEyZCTqHLK8zIT7 lD8zsEzudxmutZPhtGehejVj dGlj BNumFAfbR407JFNsvNpvRuHl ZGluZyBEYXRlOiAgMDQvMjYv MjAyMzwvdGQ+PZIkIAD2lJrl PSAn kXIbYDqrLm4deGdmrPscMH2y UGOnvhvcNBPceY9mFSNedJQe pZtfUQ5qNRRppriax374GbPk MHB0 NCEapLYaO0JqmF0lPgTwWWOj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 Complete Blood Count Auto Di ffon 07-31-2022 Erythrocyte distribution width (RBC) [Ratio] 16.600 % High 11.9-15.3 % [facility] Other Hematocrit (Bld) [Volume fraction] 34.200 % Normal 34.0-46.4 % [facility] Other Hemoglobin (Bld) [Mass/Vol] 10.855596 g/dL Low 11.8-15.4 g/dL [facility] Other MCH (RBC) [Entitic mass] 20.5000 pg Low 24.7-34.3 pg [facility] Other MCV (RBC) [Entitic vol] 64.6000 fL Low 80-100 fL [facility] Other Platelet mean volume (Bld) [Entitic vol] 9.0000 fL Normal 6.3-10.7 fL [facility] Other RBC (Bld) [#/Vol] 5.7568396167 10*6/uL High 3. 60-5.00 10*6/uL [facility] Other WBC (Bld) [#/Vol] 7.651822140 10*3/uL Normal 3.8 -11.6 10*3/uL [facility] Other Complete Blood Count Auto Diff 7.1 10*3/uL Normal 4.5-11.0 10*3/uL [facility] Other Complete Blood Count Auto Diff 31.8 g/dL Low 32.0-35.0 g/dL [facility] Other Complete Blood Count Auto Diff 0.2 % Normal 0-0.5 % [facility] Other Complete Blood Count Auto Di ffOrdered By: Ayse Wiley on 07-31-2022 Platelets (Bld) [#/Vol] 212 10*3/uL 150-450 [facility] Comprehensive Metabolic Pane emma 07-31-2022 Albumin [Mass/Vol] 3.614597 g/dL Normal 3.2-5.5 g/dL [facility] Other ALT [Catalytic activity/Vol] 12 U/L Normal 10-60 U/L [facility] Other Bilirubin [Mass/Vol] 0.1151951 mg/dL Normal 0.3- 1.2 mg/dL [facility] Other Calcium [Mass/Vol] 9.0845937 mg/dL Normal 8.2-10 .2 mg/dL [facility] Other CO2 [Moles/Vol] 28.33410310 mmol/L Normal 22.0-3 0.0 mmol/L [facility] Other Creatinine [Mass/Vol] 0.07946482 mg/dL Normal 0. 44-1.03 mg/dL [facility] Other Potassium [Moles/Vol] 3.78022353 mmol/L Normal 3 .5-5.1 mmol/L [facility] Other Protein [Mass/Vol] 6.551382 g/dL Normal 6.1-7.9 g/dL [facility] Other Comprehensive Metabolic Panel > 60 [facility] Other Comprehensive Metabolic Panel 3.0 g/dL [facility] Other Comprehensive Metabolic Pane lOrdered By: Ayse Wiley on 07-31-2022 Albumin/Globulin [Mass ratio] 1.1 {ratio} [facility] ALP [Catalytic activity/Vol] 62 U/L 32-92 [facility] AST [Catalytic activity/Vol] 17 U/L 10-42 [facility] Chloride [Moles/Vol] 99 mmol/L 95-114 [facility] Glucose [Mass/Vol] 107 mg/dL 70-100 [facility] Comment on above: ADA recommended refe rence rangeRandom Glucose Reference Range is dependent on time and content of last meal. Glucose of more than 200 mg/dL in a nonstressed, ambulatory subject supports the diagnosis of Diabetes Mellitus. Sodium [Moles/Vol] 136 mmol/L 136-146 [facility] Urea nitrogen [Mass/Vol] 6 mg/dL 9-23 [facility] Creatinine and Glomerular fi ltration rate.predicted panel (S/P/Bld)Ordered By: Ayse Wiley on 07-31-2022 Creatinine [Mass/Vol] 0.68 mg/dL 0.44-1.03 [facility] Eosinophils Auto (Bld) [#/Vo l]Ordered By: Ayse Wiley on 07-31-2022 Eosinophils (Bld) [#/Vol] 0.1 10*3/uL 0.0-0.45 [facility] Eosinophils/100 WBC Auto (Bl d)Ordered By: Ayse Wiley on 07-31-2022 Eosinophils/100 WBC (Bld) 1.5 % . [facility] Erythrocyte distribution wid th Auto (RBC) [Ratio]Ordered By: Ayse Wiley on 07-31-2022 Erythrocyte distribution width (RBC) [Ratio] 16.6 % 11.9-15.3 [facility] Estimated glomerular filtrat ion rate (GFR) non- AmericanOrdered By: Ayse Wiley on 07-31-2022 GFR/1.73 sq M.predicted among non-blacks MDRD (S/P/Bld) [Vol rate/Area] > 60 mL/Min [facility] Globulin Calc (S) [Mass/Vol] Ordered By: Ayse Wiley on 07-31-2022 Globulin (S) [Mass/Vol] 3.0 g/dL F [facility] Hematocrit Auto (Bld) [Volum e fraction]Ordered By: Ayse Wiley on 07-31-2022 Hematocrit (Bld) [Volume fraction] 34.2 % 34.0-46.4 [facility] Hypochromia detectionOrdered By: Ayse Wiley on 07-31-2022 Hypochromia Ql (Bld) Slight [facility] Laboratory - Hematology and Cell countsOrdered By: Ayse Wiley on 07-31-2022 Nucleated RBC/100 WBC (Bld) [Ratio] 0.2 % 0-0.5 [facility] Lymphocytes Auto (Bld) [#/Vo l]Ordered By: Ayse Wiley on 07-31-2022 Lymphocytes (Bld) [#/Vol] 2.4 10*3/uL 1.00-4.8 [facility] Lymphocytes/100 WBC Auto (Bl d)Ordered By: Ayse Wiley on 07-31-2022 Lymphocytes/100 WBC (Bld) 33.2 % . [facility] MCH Auto (RBC) [Entitic mass ]Ordered By: Ayse Wiley on 07-31-2022 MCH (RBC) [Entitic mass] 20.5 pg 24.7-34.3 [facility] MCHC Auto (RBC) [Mass/Vol]Or dered By: Ayse Wiley on 07-31-2022 MCHC (RBC) [Mass/Vol] 31.8 g/dL 32.0-35.0 [facility] MCV Auto (RBC) [Entitic vol] Ordered By: Ayse Wiley on 07-31-2022 MCV (RBC) [Entitic vol] 64.6 fL 80-[address] [facility] Monocytes Auto (Bld) [#/Vol] Ordered By: Ayse Wiley on 07-31-2022 Monocytes (Bld) [#/Vol] 0.3 10*3/uL 0.0-0.8 [facility] Monocytes/100 WBC Auto (Bld) Ordered By: Ayse Wiley on 07-31-2022 Monocytes/100 WBC (Bld) 4.9 % . F [facility] Neutrophils Auto (Bld) [#/Vo l]Ordered By: Ayse Wiley on 07-31-2022 Neutrophils (Bld) [#/Vol] 4.2 10*3/uL 1.8-7.7 [facility] Neutrophils/100 WBC Auto (Bl d)Ordered By: Ayse Wiley on 07-31-2022 Neutrophils/100 WBC (Bld) 59.8 % . [facility] No Panel InformationOrdered By: Ayse Wiley on 07-31-2022 Estimated GFR () > 60 mL/Min [facility] Comment on above: GFR estimated refere nce range: According to KDOQI guidelines, <60 ml/min/1.73m2 is sufficient to diagnose a patient with chronic kidney disease. Microcytosis Moderate [facility] Creatinine Clearance (Chem N/A [facility] Platelet Estimate Normal Normal [facility] Platelet Morphology Comment Normal Normal [facility] Poikilocytosis Slight [facility] Ovalocyte detectionOrdered B y: Ayse Wiley on 07-31-2022 Ovalocytes LM Ql (Bld) Slight [facility] Platelet mean volume Auto (B ld) [Entitic vol]Ordered By: Ayse Wiley on 07-31-2022 Platelet mean volume (Bld) [Entitic vol] 9.0 fL 6.3-10.7 [facility] Protein [Mass/volume] in Ser um or PlasmaOrdered By: Ayse Wiley on 07-31-2022 Protein [Mass/Vol] 6.4 g/dL 6.1-7.9 [facility] RBC Auto (Bld) [#/Vol]Ordere d By: Ayse Wiley on 07-31-2022 RBC (Bld) [#/Vol] 5.30 10*6/uL 3.60-5.00 [facility] RBC morphologyOrdered By: Angel Wiley on 07-31-2022 RBC morphology finding Nom (Bld) N/A [facility] Serum or plasma alanine douglass otransferase measurement without P-5'-P (enzymatic activiOrdered By: Ayse Wiley on 07-31-2022 ALT No additional P-5'-P [Catalytic activity/Vol] 12 U/L [facility] Serum or plasma anion gap de terminationOrdered By: Ayse Wiley on 07-31-2022 Anion gap [Moles/Vol] 12.7 mmol/L 6.0-15.0 [facility] Serum or plasma calcium saira urement (mass/volume)Ordered By: Ayse Wiley on 07-31-2022 Calcium [Mass/Vol] 9.2 mg/dL 8.2-10.2 [facility] Serum or plasma potassium me asurement (moles/volume)Ordered By: Ayse Wiley on 07-31-2022 Potassium [Moles/Vol] 3.9 mmol/L 3.5-5.1 [facility] Serum or plasma total biliru bin measurement (mass/volume)Ordered By: Ayse Wiley on 07-31-2022 Bilirubin [Mass/Vol] 0.6 mg/dL 0.3-1.2 [facility] Serum or plasma total carbon dioxide measurement (moles/volume)Ordered By: Ayse Wiley on 07-31-2022 CO2 [Moles/Vol] 28.2 mmol/L 22.0-30.0 [facility] TSH DL <= 0.005 mIU/L QnOrde red By: Ayse Wiley on 07-31-2022 TSH Qn 1.46 m[IU]/L 0.45-5.33 [facility] Thyroid Stimulating Hormoneo n 07-31-2022 TSH Qn 1.56096205750 m[IU]/L Normal 0.45-5 .33 u[iU]/mL [facility] Other Thyroxine (T4) free [Mass/vo lume] in Serum or PlasmaOrdered By: Ayse Wiley on 07-31-2022 Free T4 [Mass/Vol] 0.72 ng/dL 0.61-1.12 [facility] Complete Blood Count Auto Di ffon 04-27-2022 Erythrocyte distribution width (RBC) [Ratio] 16.100 % High 11.9-15.3 % [facility] Other Hematocrit (Bld) [Volume fraction] 36.200 % Normal 34.0-46.4 % [facility] Other Hemoglobin (Bld) [Mass/Vol] 11.644678 g/dL Low 11.8-15.4 g/dL [facility] Other MCH (RBC) [Entitic mass] 20.5000 pg Low 24.7-34.3 pg [facility] Other MCV (RBC) [Entitic vol] 64.9000 fL Low 80-100 fL [employer] Other Platelet mean volume (Bld) [Entitic vol] 9.0000 fL Normal 6.3-10.7 fL [facility] Other Platelets (Bld) [#/Vol] 233 10*3/uL Normal 150- 450 10*3/uL [facility] Other RBC (Bld) [#/Vol] 5.6464887119 10*6/uL High 3. 60-5.00 10*6/uL [facility] Other WBC (Bld) [#/Vol] 8.659823204 10*3/uL Normal 3.8 -11.6 10*3/uL [facility] Other Complete Blood Count Auto Diff 8.4 10*3/uL Normal 4.5-11.0 10*3/uL [facility] Other Complete Blood Count Auto Diff 31.6 g/dL Low 32.0-35.0 g/dL [facility] Other Complete Blood Count Auto Diff 0.1 % Normal 0-0.5 % [facility] Other [facility] Physician Progr ess Noteon 04-25-2022 [facility] Physician Progress Note Chief Complaint Patient 8 weeks post op left haglunds/achilles. She presents in boot. No c/o pain today. Incision healed well. She reports she has been doing her own therapy at home d/t order issues with therapy facility. History of Present Illness Overall patient is quite satisfied with the outcome of her procedure. She denies any fever chills shortness breath or calf tenderness. Physical Exam Vitals & Measurements Systolic Blood Pressure: 148 mmHg High (04/21/22 14:17:00) Diastolic Blood Pressure: 82 mmHg (04/21/22 14:17:00) Mean Arterial Pressure: 104 mmHg (04/21/22 14:17:00) Height/Length Measured: 156 cm (04/21/22 14:17:00) Weight Measured: 105 kg (04/21/22 14:17:00) Body Mass Index Measured: 43.15 kg/m2 (04/21/22 14:17:00) Weight Measured - lbs2: 232 lb (04/21/22 14:17:00) Height/Length Measured - in2: 61.5 in (04/21/22 14:17:00) Body Mass Index Measured English2: 43.12 kg/m2 (04/21/22 14:17:00) BSA: 2.13 m2 (04/21/22 14:17:00) Ht/Wt Measurement Refused by Patient?2: No (04/21/22 14:17:00) Depression Screening Scores Initial Depression Screen Score: 0 (04/21/22 14:17:00) Fall Risk Assessment Is the patient ambulatory (mobile): Yes (04/21/22 14:17:00) Have you had a fall within the past: No (04/21/22 14:17:) Have you had 2 or more falls in the past: No (04/21/22 14:17:00) Exam demonstrates complete healing of the surgical incision. There is no surrounding erythema drainage or evidence of bacterial infection. Plantarflexion muscle strength is intact and nonpainful. no proximal calf tenderness is present. Assessment/Plan This Visit Diagnosis 1. 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 Patient is progressing well given the significant nature associated with her surgery. I have recommended she continue to work with physical therapy to maximize her long-term progress. She may discontinue use of the pneumatic boot at this time. She is aware that maximal COVID for this type of surgery may be an additional 4 to 6 months. Should she have any questions or concerns she will contact office otherwise follow-up as needed. Ordered: AMB Postop followup during global period [id number], 04/21/2022 12:46:00 EDT, Acquired Deanne's deformity of left heel Problem List/Past Medical History Ongoing Acquired Deanne's deformity of left heel Beta thalassemia Body mass index 40+ - severely obese Chronic back pain Chronic pain Disorder of Achilles tendon. Ex-cigarette smoker FH: premature coronary heart disease Fibromyalgia Generalized anxiety disorder Hypertensive disorder Hypothyroidism Juvenile osteochondrosis of foot Microcytic anemia Obstructive sleep apnea syndrome Pain in limb Palpitations Patient encounter status Recurrent major depressive episodes, moderate Walking disability Historical Acquired hypothyroidism Essential hypertension Procedure/Surgical History Cast sup shrt leg fiberglass: 02/28/22 Radiologic examination, foot; two views: 01/12/22 Radiologic examination; calcaneus, minimum of two views: 11/14/21 Ultrasound, extremity, nonvascular, real-time with image documentation; limited, anatomic specific: 05/14/17 Radiologic examination; calcaneus, minimum of two views: 02/28/17 Supplies and materials (except spectacles), provided by the physician over and above those usually included with the office visit or other services rendered (list drugs, trays, supplies, or materials provided): 02/28/17 tonsillectomy: 09/11/13 Tubal ligation Repair of tendo achilles (procedure) Medications Acetaminophen Extra Strength Gelcaps 500 mg Aleve 220 mg oral capsule, TID [place] Thyroid 60 mg oral tablet hydroCHLOROthiazide 25 mg oral tablet hydrochlorothiazide-nanci nopril 12.5 mg-10 mg oral tablet levothyroxine 125 mcg (0.125 mg) oral tablet PROzac 40 mg oral capsule Allergies Darvocet-N 100 amoxicillin (GI Upset) codeine lamoTRIgine (Itching) Social History Alcohol - Denies Alcohol Use Tobacco - Denies Tobacco Use Family History COPD (chronic obstructive pulmonary disease)..: Father. Heart attack....: Mother. High blood pressure....: Father. Immunizations Vaccine Date Status influenza virus vaccine, live 07/22/2021 Recorded SARS-CoV-2 (COVID-19, MODERNA) mRNA-1273 11/10/2020 Recorded SARS-CoV-2 (COVID-19, MODERNA) mRNA-1273 10/13/2020 Recorded influenza virus vaccine, H1N1, live 07/2019 Recorded Comments : Outside Source Comment: Result Comment: [facility] Care Team Attending Physician ZELALEM KAMARA DPM [phone] . Health Maintenance Pending (in the next year) There are no current recommendations pending Satisfied (in the past 1 year) There are no satisfied recommendations within the defined date range Normal [facility] Ambulatory Clinical Summaryo n 04-21-2022 Ambulatory Clinical Summary SHELBIE YANG :1980 Visit Date:04/21/2022 Ambulatory Visit Instructions Your Care Team Attending Physician - ZELALEM KAMARA DPM Procedures Performed Cast sup shrt leg fiberglass (02/28/2022) Radiologic examination, foot; two views (01/12/2022) Radiologic examination; calcaneus, minimum of two views (11/14/2021) Ultrasound, extremity, nonvascular, real-time with image documentation; limited, anatomic specific (05/14/2017) Radiologic examination; calcaneus, minimum of two views (02/28/2017) Supplies and materials (except spectacles), provided by the physician over and above those usually included with the office visit or other services rendered (list drugs, trays, supplies, or materials provided) (02/28/2017) tonsillectomy (09/11/2013) Repair of tendo achilles (procedure) Tubal ligation Discharge Vitals Blood Pressure 148/82 Height 156 cm Weight 105 kg BMI 43.15 Systolic Blood Pressure: 148 mmHg High (04/21/22 14:17:00) Diastolic Blood Pressure: 82 mmHg (04/21/22 14:17:00) Mean Arterial Pressure: 104 mmHg (04/21/22 14:17:00) Height/Length Measured: 156 cm (04/21/22 14:17:00) Weight Measured: 105 kg (04/21/22 14:17:00) Body Mass Index Measured: 43.15 kg/m2 (04/21/22 14:17:00) Weight Measured - lbs2: 232 lb (04/21/22 14:17:00) Height/Length Measured - in2: 61.5 in (04/21/22 14:17:00) Body Mass Index Measured English2: 43.12 kg/m2 (04/21/22 14:17:00) BSA: 2.13 m2 (04/21/22 14:17:00) Ht/Wt Measurement Refused by Patient?2: No (04/21/22 14:17:00) What to do next Scheduled Follow-Up Appointments No results Medications What When Instructions Unchanged acetaminophen (Acetaminophen Extra Strength Gelcaps 500 mg) Orally every 4 hours Unchanged FLUoxetine (PROzac 40 mg oral capsule) Orally Once a day Unchanged hydrochlorothiazide = HydroDIURIL (hydroCHLOROthiazide 25 mg oral tablet) Orally Once a day Unchanged hydrochlorothiazide-nanci nopril (hydrochlorothiazide-lis inopril 12.5 mg-10 mg oral tablet) Orally Once a day Unchanged levothyroxine (levothyroxine 125 mcg (0.125 mg) oral tablet) 90 tabs Unchanged naproxen (Aleve 220 mg oral capsule) THREE TIMES A DAY Orally every 8 hours Unchanged thyroid desiccated ([place] Thyroid 60 mg oral tablet) Orally Once a day Allergies Darvocet-N 100 amoxicillin (GI Upset) codeine lamoTRIgine (Itching) Problems Ongoing - Any problem that you are currently receiving treatment for. Beta thalassemia Body mass index 40+ - severely obese Chronic back pain Chronic pain Disorder of Achilles tendon. Ex-cigarette smoker FH: premature coronary heart disease Fibromyalgia Generalized anxiety disorder Hypertensive disorder Hypothyroidism Juvenile osteochondrosis of foot Microcytic anemia Obstructive sleep apnea syndrome Pain in limb Palpitations Patient encounter status Recurrent major depressive episodes, moderate Walking disability Historical - Any problem that you are no longer receiving treatment for. Acquired hypothyroidism Essential hypertension Common Emergency Awareness Tips IS IT A STROKE? Act FAST and Check for these signs: FACE Does the face look uneven? ARM Does one arm drift down? SPEECH Does their speech sound strange? TIME Call at any sign of stroke Heart Attack Signs Chest discomfort: Most heart attacks involve discomfort in the center of the chest and lasts more than a few minutes, or goes away and comes back. It can feel like uncomfortable pressure, squeezing, fullness or pain. Discomfort in upper body: Symptoms can include pain or discomfort in one or both arms, back, neck, jaw or stomach. Shortness of breath: With or without discomfort. Other signs: Breaking out in a cold sweat, nausea, or lightheaded. Remember, MINUTES DO MATTER. If you experience any of these heart attack warning signs, call to get immediate medical attention! Normal [facility] Comprehensive Intake - Texto n 04-21-2022 Comprehensive Intake - Text Comprehensive Intake Entered On: 04/21/2022 14:20 EDT Performed On: 04/21/2022 14:17 EDT by Ariane Ray Summary Chief Complaint : Patient 8 weeks post op left haglunds/achilles. She presents in boot. No c/o pain today. Incision healed well. She reports she has been doing her own therapy at home d/t order issues with therapy facility. Bladder Control Issues? : No Urine Leakage? : No Presence or absence of urinary incontinence assessed : Yes CPT-II Medication list doc'd in medical record : Yes Influenza immunization administered or previously received : Yes Pneumococcal vaccine administered or previously received : No Ariane Ray - 04/21/2022 14:17 EDT Measurements Ht/Wt Measurement Refused by Patient? : No Weight Measured : 105 kg(Converted to: 231 lb 8 oz, 231.485 lb) Height/Length Measured : 156 cm(Converted to: 5 ft 1 in, 61.42 in) Body Mass Index Measured : 43.15 kg/m2 Body Mass Index documented : Yes Weight Measured - lbs : 232 lb(Converted to: 232 lb 0 oz, 105 kg) Height/Length Measured - in : 61.5 in(Converted to: 5 ft 2 in, 156 cm) Body Mass Index Measured Hungarian : 43.12 kg/m2 BSA Hungarian : 2.13 m2 Ariane Ray - 04/21/2022 14:17 EDT Vitals Require BP : Yes Systolic Blood Pressure : 148 mmHg (HI) Diastolic Blood Pressure : 82 mmHg Mean Arterial Pressure : 104 mmHg Last Systolic BP : greater than or equal to 140 mmHg Last Diastolic BP : 80-89 mmHg Pain Present : No actual or suspected pain Pain : 0 Pain severity quantified : No pain present Ariane Ray - 04/21/2022 14:17 EDT Infection Screening - Ambulatory Exposure AND/OR close contact with a person under investigation or laboratory-confirmed COVID-19 individual within 14 days of symptom onset AND/OR any of the following: : No Do you live/work in a high risk situation (congregated living, hemodialysis, infusion clinic, halfway, assisted living, [place] health [place] facility, homeless care home, etc.)? : No Ariane Ray - 04/21/2022 14:17 EDT Depression Screening Is patient currently : None of the Below Feeling Down, Depressed, Hopeless : Not at all Little Interest - Pleasure in Activities : Not at all Initial Depression Screen Score : 0 Depression Screening Score 0 : No Ariane Ray - 04/21/2022 14:17 EDT Family History Family History (As Of: 04/21/2022 14:20:08 EDT) Father: Relation: Father ; Gender: Male ; Nomenclature: COPD (chronic obstructive pulmonary disease).. ; Value: Positive Nomenclature: High blood pressure.... ; Value: Positive Mother: Relation: Mother ; Gender: Female ; Nomenclature: Heart attack.... ; Value: Positive Social History Social History (As Of: 04/21/2022 14:20:08 EDT) Alcohol: Denies Alcohol Use (Last Updated: 03/24/2022 16:46:54 EDT by Gloria Catalan ) Tobacco: Denies Tobacco Use (Last Updated: 03/24/2022 16:46:52 EDT by Gloria Catalan ) Falls Risk Assessment Is the patient ambulatory (mobile) : Yes Have you had 2 or more falls in the past year : No Have you had a fall within the past year that has caused an injury : No Patient screen for fall risk : no falls in last year OR 1 fall with no injury in last year Ariane Ray - 04/21/2022 14:[address] [facility] Ambulatory Clinical Summaryo n 03-24-2022 Ambulatory Clinical Summary SHELBIE YANG :1980 Visit Date:03/24/2022 Ambulatory Visit Instructions Your Care Team Attending Physician - ZELALEM KAMARA DPM Procedures Performed Cast sup shrt leg fiberglass (02/28/2022) Radiologic examination, foot; two views (01/12/2022) Radiologic examination; calcaneus, minimum of two views (11/14/2021) Ultrasound, extremity, nonvascular, real-time with image documentation; limited, anatomic specific (05/14/2017) Radiologic examination; calcaneus, minimum of two views (02/28/2017) Supplies and materials (except spectacles), provided by the physician over and above those usually included with the office visit or other services rendered (list drugs, trays, supplies, or materials provided) (02/28/2017) tonsillectomy (09/11/2013) Repair of tendo achilles (procedure) Tubal ligation Discharge Vitals Blood Pressure 114/75 Height 155 cm Weight 104 kg BMI 43.29 Systolic Blood Pressure: 114 mmHg (03/24/22 16:44:00) Diastolic Blood Pressure: 75 mmHg (03/24/22 16:44:00) Mean Arterial Pressure: 88 mmHg (03/24/22 16:44:00) Height/Length Measured: 155 cm (03/24/22 16:44:00) Weight Measured: 104 kg (03/24/22 16:44:00) Body Mass Index Measured: 43.29 kg/m2 (03/24/22 16:44:00) Weight Measured - lbs2: 230 lb (03/24/22 16:44:00) Height/Length Measured - in2: 61 in (03/24/22 16:44:00) Body Mass Index Measured English2: 43.45 kg/m2 (03/24/22 16:44:00) BSA: 2.12 m2 (03/24/22 16:44:00) Ht/Wt Measurement Refused by Patient?2: No (03/24/22 16:44:00) What to do next Scheduled Follow-Up Appointments Appointment Type Reason for visit Day With Date Time Where [facility] Post Op Post op follow up Sunday ZELALEM KAMARA April 14, 2022 03:00 pm EDT Podiatry [address] [facility] [address] Medications What When Instructions New acetaminophen (Acetaminophen Extra Strength Gelcaps 500 mg) Orally every 4 hours New FLUoxetine (PROzac 40 mg oral capsule) Orally Once a day New hydrochlorothiazide = HydroDIURIL (hydroCHLOROthiazide 25 mg oral tablet) Orally Once a day New hydrochlorothiazide-nanci nopril (hydrochlorothiazide-lis inopril 12.5 mg-10 mg oral tablet) Orally Once a day New levothyroxine (levothyroxine 125 mcg (0.125 mg) oral tablet) 90 tabs New naproxen (Aleve 220 mg oral capsule) THREE TIMES A DAY Orally every 8 hours New thyroid desiccated ([place] Thyroid 60 mg oral tablet) Orally Once a day Allergies Darvocet-N 100 amoxicillin (GI Upset) codeine lamoTRIgine (Itching) Problems Ongoing - Any problem that you are currently receiving treatment for. Body mass index 40+ - severely obese Chronic back pain Disorder of Achilles tendon. Ex-cigarette smoker FH: premature coronary heart disease Generalized anxiety disorder Hypertensive disorder Hypothyroidism Juvenile osteochondrosis of foot Obstructive sleep apnea syndrome Pain in limb Palpitations Patient encounter status Recurrent major depressive episodes, moderate Walking disability Common Emergency Awareness Tips IS IT A STROKE? Act FAST and Check for these signs: FACE Does the face look uneven? ARM Does one arm drift down? SPEECH Does their speech sound strange? TIME Call at any sign of stroke Heart Attack Signs Chest discomfort: Most heart attacks involve discomfort in the center of the chest and lasts more than a few minutes, or goes away and comes back. It can feel like uncomfortable pressure, squeezing, fullness or pain. Discomfort in upper body: Symptoms can include pain or discomfort in one or both arms, back, neck, jaw or stomach. Shortness of breath: With or without discomfort. Other signs: Breaking out in a cold sweat, nausea, or lightheaded. Remember, MINUTES DO MATTER. If you experience any of these heart attack warning signs, call 06-22-1 to get immediate medical attention! Normal [facility] Operative Reporton 2 Operative Report [facility] OPERATIVE RECORD SHELBIE YANG BCSS [id number] ASC ZELALEM KAMARA DPM [id number] SURGEON: Zelalem Kamara DPM DATE OF OPERATION: 02/24/2022 DICTATING FOR: Dr. Zelalem Kamara DPM. WRECKER DRIVER: Dr. Lopez Benavidez, PGY 3. PREOPERATIVE DIAGNOSIS: Deanne deformity and posterior heel spur and Achilles tendinosis of the left foot. POSTOPERATIVE DIAGNOSIS: Deanne deformity and posterior heel spur and Achilles tendinosis of the left foot. PROCEDURES PERFORMED: Excision of the Deanne deformity, excision of the posterior heel spur, and repair of Achilles tendon with Arthrex SpeedBridge System, all of the left foot. HEMOSTASIS: Thigh tourniquet for 91 minutes. ESTIMATED BLOOD LOSS: 10 mL. MATERIALS: Arthrex SpeedBridge System, Vicryl, nylon. INJECTABLES: 10 mL of a 1:1 mixture of 1% lidocaine plain, 1% lidocaine with epinephrine, 20 mL of 0.5% Marcaine plain. INDICATIONS: This 41-year-old presents to [facility] complaining of a painful left heel and Achilles tendon. The patient has had previous surgical intervention performed to the left Achilles previously. 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 The patient has failed all conservative treatment options at this time. Planned procedure was to resect the spurs by detaching and reattaching the Achilles after thorough debridement of the scar tissue and tendinosis. The risks, complications, benefits, and expected recovery time, both having and not having the procedure were extensively discussed with the patient. The patient agrees to the above-stated procedure. No promises or guarantees were given or implied. OPERATIVE PROCEDURE: The patient was brought to the operating room, placed under general anesthesia. The patient was then placed in the prone position. A left thigh tourniquet was applied to the patient but not yet inflated. Local anesthesia was obtained utilizing 10 mL of a 1:1 mixture of 1% lidocaine plain, 1% lidocaine with epinephrine. The patient was then scrubbed, prepped, and draped in the usual aseptic manner. Attention was then directed to the left heel. A midline incision was made running from superior to plantar directly in line with the previous incision. Incision was then deepened, and care was taken to not injure any of the vital neurovascular structures. All bleeders were ligated and cauterized as necessary. At this time, decision was made to exsanguinate the left lower extremity with an Esmarch bandage and inflate the tourniquet. Sharp and blunt dissection were carried down to the level of tendon. Significant scar tissue and fibrosis were noted to the area and within the tendon. A vertical incision was then made through the Achilles tendon down to the bone, and the tendon was split in half and reflected medially and laterally with care to leave the most medial and lateral attachments. Sharp and blunt dissection allowed visualization of the posterior and superior aspects of the calcaneus. Bony exostosis was noted throughout the area, especially on the posterior and superior aspects of the calcaneus. Some retrocalcaneal bursitis was also visualized in the area and resected sharply. The area was remodeled using a combination of a rongeur, power saw, and rotary bur. The exostosis was then passed from the operative field. Once adequate contouring was accomplished, the area was made smooth with a hand rasp. The Achilles tendon was then palpated, and there was again noted scar tissue and fibrosis. A tendon debridement was sharply performed on the Achilles, removing all degenerative and fibrotic tissue, especially at the midline of the incision. The Achilles tendon was then repaired and reattached to the calcaneus using the Arthrex SpeedBridge System per AO principles as well as the technique and protocol laid out by the finisher wallboard and plasterboard. The area was then copiously flushed with sterile normal saline. The midline incision of the Achilles was then reinforced and closed with FiberWire suture in a running stitch. The subcutaneous layer was closed with Vicryl, and the skin was reapproximated with nylon. 20 mL of 0.5% Marcaine plain was infiltrated davian-incisionally as a postoperative block. The tourniquet was then deflated after 91 minutes and hyperemia was noted to the area. The incision was dressed with Adaptic, 4x4's, Kerlix, and then a modified Gonsalves compressive dressing was applied. The foot and ankle were placed in a gravity equinus position, and a cast was applied to hold the ankle in position. The patient tolerated the procedure well and returned to PACU with all vital signs stable, vascular status intact to the left foot. ROSALIA FREDERICK/Rosalba /[id number] Electronical (more content not included)... Normal [facility] CT CARDIAC SCORINGon CT CARDIAC SCORING Addendum Begins Patient Name: SHELBIE YANG ADDENDUM: NON-CARDIOVASCULAR FINDINGS INCLUDED LUNGS, AIRWAYS AND PLEURA Endotracheal / endobronchial lesion: Negative Nodule: Negative Airspace disease: Negative Pleural effusion: Negative Pneumothorax: Negative Other: Thin linear bands of atelectasis or scarring in the middle lobe INCLUDED NON-CARDIOVASCULAR LINK AND MEDIASTINUM Adenopathy: Negative Included esophagus: Unremarkable Other: No acute or contributory unanticipated findings INCLUDED BONES: No acute skeletal findings, noting less sensitivity and specificity without dedicated sagittal and coronal reformatted series. INCLUDED CHEST WALL No acute or contributory unanticipated findings INCLUDED UPPER ABDOMEN Wide-mouth hernia midline/right paramidline upper abdomen with omental fat herniating to the right of the mediastinum in the included lower chest. A portion of the mid transverse colon is close to but does not protrude through the hernia neck ------- NON-CARDIOVASCULAR IMPRESSION WIDE NECK MIDLINE/RIGHT PARAMIDLINE HERNIA IN THE VENTRAL UPPER ABDOMEN, WITH OMENTUM HERNIATING UP INTO THE CHEST VENTRALLY, PROTRUDING UP INTO THE THORAX TO THE RIGHT OF THE MEDIASTINUM. THE MID TRANSVERSE COLON IS NEAR BUT DOES NOT PROTRUDE THROUGH THE HERNIA NECK. FINDINGS COULD BE SYMPTOMATIC.. NO COMPARISON EXAMS IN THE LOCAL PACS ARCHIVE Electronically signed by: DENISE TROTTER MD Addendum Ends Patient Name: SHELBIE YANG STUDY: CT CARDIAC SCORING; 04/21/2021 10:21 am INDICATION: Other chest pain . COMPARISON: None. ACCESSION NUMBER(S): [id number] ORDERING CLINICIAN: DUSTY EVANS TECHNIQUE: Using prospective ECG gating, CT scan of the coronary arteries was performed without intravenous contrast. Coronary calcium scoring was performed according to the method of Agatston. CT Dose-Length Product (DLP): 51.4 mGy*cm CT Dose Reduction Employed: Yes, prospective gating, iterative reconstruction. FINDINGS: The score and distribution of calcium in the coronary arteries is as follows: LM 0 LAD 0 LCx 0 RCA 0 Total 0 The visualized mid/lower ascending thoracic aorta measures 3.3 cm in diameter. The heart is normal in size. No pericardial effusion is present. IMPRESSION: 1. Coronary artery calcium score of 0*. *Coronary artery calcium scoring may be helpful in predicting the risk for future coronary heart disease events. According to the [place] [employer] Clinical Expert Consensus Task Force, such testing provides important prognostic information in patients with more than one coronary heart disease risk factor. The coronary artery calcium score correlates with the annual risk of a non-fatal myocardial infarction or coronary heart disease . Coronary artery score Annual Risk 0-99 0.4% 100-399 1.3% >400 2.4% These three breakpoints correspond to lower, intermediate and high risk states for future coronary events. Such information should be used, along with appropriate clinical judgment, to make decisions regarding the intensity of risk factor management strategies to treat blood lipids and to modify other non-lipid coronary risk factors. Reference: [place] P et al. Circulation. 2007; 115:402-426 Reading Transport Truck Driver: Dr. Bronson Luna, Date: 04/21/2021 5:52 pm Electronically signed by: DENISE TROTTER MD [facility] Vital Signs Date Time Vital Sign Value Performing Clinician Facility 12-08-2024 15:40-0500 Body mass index (BMI) [Ratio] 37.6 kg/m2 [employer] Work Phone: [facility] 12-08-2024 15:40-0500 Body weight 90.27 kg Sami Obey DO Work Phone: [facility] 12-08-2024 15:40-0500 Diastolic blood pressure 82 mm[Hg] Sami Obey DO Work Phone: [facility] 12-08-2024 15:40-0500 Systolic blood pressure 130 mm[Hg] Sami Obey DO Work Phone: [facility] 12-01-2024 15:55-0500 Body height 154.94 cm Ayse Schwerer DO Work Phone: [facility] 12-01-2024 15:55-0500 Body mass index (BMI) [Ratio] 38.9 kg/m2 Ayse Schwerer DO Work Phone: [facility] 12-01-2024 15:55-0500 Body weight 93.44 kg Ayse Schwerer DO Work Phone: [facility] 12-01-2024 15:55-0500 Diastolic blood pressure 80 mm[Hg] Ayse Schwerer DO Work Phone: [facility] 12-01-2024 15:55-0500 Heart rate 61 /min Ayse Schwerer DO Work Phone: [facility] 12-01-2024 15:55-0500 Respiratory rate 18 /min Ayse Schwerer DO Work Phone: [facility] 12-01-2024 15:55-0500 SaO2% (BldA) [Mass fraction] 97 % Ayse Schwerer DO Work Phone: [facility] 12-01-2024 15:55-0500 Systolic blood pressure 140 mm[Hg] Ayse Schwerer DO Work Phone: [facility] 11-17-2024 15:32-0500 Body mass index (BMI) [Ratio] 38.89 kg/m2 Sami Obey DO Work Phone: [facility] 11-17-2024 15:32-0500 Body weight 93.35 kg Sami Obey DO Work Phone: [facility] 11-17-2024 15:32-0500 Diastolic blood pressure 76 mm[Hg] Sami Obey DO Work Phone: [facility] 11-17-2024 15:32-0500 Systolic blood pressure 130 mm[Hg] Sami Obey DO Work Phone: [facility] 11-04-2024 13:50-0500 Body height 154.94 cm Ayse Schwerer DO Work Phone: [facility] 11-04-2024 13:50-0500 Body mass index (BMI) [Ratio] 38.7 kg/m2 Ayse Schwerer DO Work Phone: [facility] 11-04-2024 13:50-0500 Body weight 92.98 kg Ayse Schwerer DO Work Phone: [facility] 11-04-2024 13:50-0500 Diastolic blood pressure 88 mm[Hg] Ayse Schwerer DO Work Phone: [facility] 11-04-2024 13:50-0500 Heart rate 57 /min Ayse Schwerer DO Work Phone: [facility] 11-04-2024 13:50-0500 Respiratory rate 18 /min Ayse Schwerer DO Work Phone: [facility] 11-04-2024 13:50-0500 SaO2% (BldA) [Mass fraction] 99 % Ayes Schwerer DO Work Phone: [facility] 11-04-2024 13:50-0500 Systolic blood pressure 142 mm[Hg] Ayse Schwerer DO Work Phone: [facility] 10-13-2024 15:56-0500 Body mass index (BMI) [Ratio] 37 kg/m2 Sami Obey DO Work Phone: [facility] 10-13-2024 15:56-0500 Body weight 88.81 kg Sami Obey DO Work Phone: [facility] 10-13-2024 15:56-0500 Diastolic blood pressure 72 mm[Hg] Sami Obey DO Work Phone: [facility] [facility] 10-13-2024 15:56-0500 Systolic blood pressure 120 mm[Hg] Sami Obey DO Work Phone: [facility] 07-30-2024 10:48-0400 Body height 154.94 cm DO Ayse Schwerer Work Phone: [facility] 07-30-2024 10:48-0400 Body mass index (BMI) [Ratio] 35.6 kg/m2 DO Ayse Schwerer Work Phone: [facility] 07-30-2024 10:48-0400 Body weight 85.72 kg DO Ayse Schwerer Work Phone: [facility] 07-30-2024 10:48-0400 Diastolic blood pressure 66 mm[Hg] DO Ayse Schwerer Work Phone: [facility] 07-30-2024 10:48-0400 Heart rate 55 /min DO Ayse Schwerer Work Phone: [facility] 07-30-2024 10:48-0400 Respiratory rate 18 /min DO Ayse Schwerer Work Phone: [facility] 07-30-2024 10:48-0400 SaO2% (BldA) [Mass fraction] 97 % DO Ayse Schwerer Work Phone: [facility] 07-30-2024 10:48-0400 Systolic blood pressure 102 mm[Hg] DO Ayse Schwerer Work Phone: [facility] 07-07-2024 15:00-0400 Body height 154.94 cm DO Ayse Schwerer Work Phone: [facility] 07-07-2024 15:00-0400 Body mass index (BMI) [Ratio] 36.1 kg/m2 DO Ayse Schwerer Work Phone: [facility] 07-07-2024 15:00-0400 Body temperature 98.2 [degF] DO Ayse Schwerer Work Phone: [facility] 07-07-2024 15:00-0400 Body weight 86.72 kg DO Ayse Schwerer Work Phone: [facility] 07-07-2024 15:00-0400 Diastolic blood pressure 88 mm[Hg] DO Ayse Schwerer Work Phone: [facility] 07-07-2024 15:00-0400 Heart rate 62 /min DO Ayse Schwerer Work Phone: [facility] 07-07-2024 15:00-0400 SaO2% (BldA) [Mass fraction] 98 % DO Ayse Schwerer Work Phone: [facility] 07-07-2024 15:00-0400 Systolic blood pressure 128 mm[Hg] DO Ayse Schwerer Work Phone: [facility] 06-25-2024 07:57-0400 Body temperature 97.9 [degF] DO Ayse Schwerer Work Phone: [facility] 06-25-2024 07:57-0400 Diastolic blood pressure 91 mm[Hg] DO Ayse Schwerer Work Phone: [facility] 06-25-2024 07:57-0400 Heart rate 60 /min DO Ayse Schwerer Work Phone: [facility] 06-25-2024 07:57-0400 Respiratory rate 18 /min DO Ayse Schwerer Work Phone: [facility] 06-25-2024 07:57-0400 SaO2% (BldA) [Mass fraction] 100 % DO Ayse Schwerer Work Phone: [facility] 06-25-2024 07:57-0400 Systolic blood pressure 144 mm[Hg] DO Ayse Schwerer Work Phone: [facility] 06-25-2024 06:00-0400 Body weight 87.8 kg DO Ayse Schwerer Work Phone: [facility] 06-23-2024 17:15-0400 Body height 154.94 cm DO Ayse Schwerer Work Phone: [facility] 06-23-2024 17:07-0400 Body temperature 98.3 [degF] DO Ayse Schwerer Work Phone: [facility] 06-23-2024 16:30-0400 Diastolic blood pressure 78 mm[Hg] DO Ayse Schwerer Work Phone: [facility] 06-23-2024 16:30-0400 Heart rate 50 /min DO Ayse Schwerer Work Phone: [facility] 06-23-2024 16:30-0400 Respiratory rate 16 /min DO Ayse Schwerer Work Phone: [facility] 06-23-2024 16:30-0400 SaO2% (BldA) [Mass fraction] 100 % DO Ayse Schwerer Work Phone: [facility] 06-23-2024 16:30-0400 Systolic blood pressure 165 mm[Hg] DO Ayse Schwerer Work Phone: [facility] 06-23-2024 12:59-0400 Body height 154.94 cm DO Ayse Wiley Work Phone: [facility] 06-23-2024 12:59-0400 Body weight 86.4 kg DO Ayse Campbellr Work Phone: [facility] 06-09-2024 16:50-0400 Body height 154.94 cm [facility] 06-09-2024 16:50-0400 Body mass index (BMI) [Ratio] 35.9 kg/m2 [facility] 06-09-2024 16:50-0400 Body temperature 97.6 [degF] [facility] 06-09-2024 16:50-0400 Body weight 86.23 kg [facility] 06-09-2024 16:50-0400 Diastolic blood pressure 78 mm[Hg] [facility] 06-09-2024 16:50-0400 Heart rate 53 /min [facility] 06-09-2024 16:50-0400 SaO2% (BldA) [Mass fraction] 99 % [facility] 06-09-2024 16:50-0400 Systolic blood pressure 120 mm[Hg] [facility] 01-10-2024 13:03-0400 Body height 154.94 cm [facility] 01-10-2024 13:03-0400 Body mass index (BMI) [Ratio] 37.1 kg/m2 [facility] 01-10-2024 13:03-0400 Body temperature 97.5 [degF] [facility] 01-10-2024 13:03-0400 Body weight 89.13 kg [facility] 01-10-2024 13:03-0400 Diastolic blood pressure 92 mm[Hg] [facility] 01-10-2024 13:03-0400 Heart rate 59 /min [facility] 01-10-2024 13:03-0400 SaO2% (BldA) [Mass fraction] 99 % [facility] 01-10-2024 13:03-0400 Systolic blood pressure 142 mm[Hg] [facility] 07-30-2023 08:59-0400 Diastolic blood pressure 79 mm[Hg] DO Ayse Schwerer Work Phone: [facility] 07-30-2023 08:59-0400 Heart rate 54 /min DO Ayse Schwerer Work Phone: [facility] 07-30-2023 08:59-0400 Respiratory rate 18 /min DO Ayse Schwerer Work Phone: [facility] 07-30-2023 08:59-0400 SaO2% (BldA) [Mass fraction] 98 % DO Ayse Schwerer Work Phone: [facility] 07-30-2023 08:59-0400 Systolic blood pressure 130 mm[Hg] DO Ayse Schwerer Work Phone: [facility] 07-30-2023 07:33-0400 Body height 154.94 cm DO Ayse Schwerer Work Phone: [facility] 07-30-2023 07:33-0400 Body temperature 98.5 [degF] DO Ayse Schwerer Work Phone: [facility] 07-30-2023 07:33-0400 Body weight 84.36 kg DO Ayse Schwerer Work Phone: [facility] 05-21-2023 16:45-0400 Body height 160.02 cm Ayse Schwerer Other [employer] Other 05-21-2023 16:45-0400 Body mass index (BMI) [Ratio] 35.6 kg/m2 Ayse Schwerer Other [employer] Other 05-21-2023 16:45-0400 Body weight 91.17 kg Ayse Schwerer Other [employer] Other 05-21-2023 16:45-0400 Diastolic blood pressure 88 mm[Hg] Ayse Schwerer Other [employer] Other 05-21-2023 16:45-0400 Respiratory rate 16 /min Ayse Schwerer Other [facility] Other 05-21-2023 16:45-0400 SaO2% (BldA) [Mass fraction] 97 % Ayse Schwerer Other [facility] Other 05-21-2023 16:45-0400 Systolic blood pressure 130 mm[Hg] Ayse Schwerer Other [facility] Other 02-26-2023 14:15-0400 Body height 160.02 cm Ayse Schwerer Other [facility] Other 02-26-2023 14:15-0400 Body temperature 98.1 [degF] Ayse Schwerer Other [facility] Other 02-26-2023 14:15-0400 Diastolic blood pressure 80 mm[Hg] Ayse Schwerer Other [facility] Other 02-26-2023 14:15-0400 SaO2% (BldA) [Mass fraction] 99 % Ayse Schwerer Other [facility] Other 02-26-2023 14:15-0400 Systolic blood pressure 138 mm[Hg] Ayse Schwerer Other [facility] Other 02-19-2023 15:45-0400 Body height 160.02 cm Shira Bowlingritu Other [employer] Other 02-19-2023 15:45-0400 Body mass index (BMI) [Ratio] 38.21 kg/m2 Shira Olson Other [facility] Other 02-19-2023 15:45-0400 Body weight 97.84 kg Shira Bowlingritu Other [facility] Other 02-19-2023 15:45-0400 Diastolic blood pressure 82 mm[Hg] Shira Kapritu Other [facility] Other 02-19-2023 15:45-0400 Respiratory rate 18 /min Shira Kapritu Other [facility] Other 02-19-2023 15:45-0400 SaO2% (BldA) [Mass fraction] 98 % Shira Bowlingritu Other [facility] Other 02-19-2023 15:45-0400 Systolic blood pressure 138 mm[Hg] Shira Wesley Other [facility] Other 02-12-2023 06:26-0400 Diastolic blood pressure 97 mm[Hg] [facility] 02-12-2023 06:26-0400 Heart rate 63 /min [facility] 02-12-2023 06:26-0400 Hourly Rounding [facility] 02-12-2023 06:26-0400 Mean blood pressure 112 mm[Hg] [facility] 02-12-2023 06:26-0400 Respiratory rate 18 /min [facility] 02-12-2023 06:26-0400 SaO2% (BldA) [Mass fraction] 99 % [facility] 02-12-2023 06:26-0400 Systolic blood pressure 141 mm[Hg] [facility] 02-12-2023 06:00-0400 Diastolic blood pressure 73 mm[Hg] [facility] 02-12-2023 06:00-0400 Heart rate 59 /min [facility] 02-12-2023 06:00-0400 Hourly Rounding [facility] 02-12-2023 06:00-0400 SaO2% (BldA) [Mass fraction] 98 % [facility] 02-12-2023 06:00-0400 Systolic blood pressure 137 mm[Hg] [facility] 02-12-2023 05:37-0400 Body temperature 98.24 [degF] [facility] 02-12-2023 05:37-0400 Diastolic blood pressure 94 mm[Hg] [facility] 02-12-2023 05:37-0400 Heart rate 62 /min [facility] 02-12-2023 05:37-0400 Hourly Rounding [facility] 02-12-2023 05:37-0400 Respiratory rate 20 /min [facility] 02-12-2023 05:37-0400 SaO2% (BldA) [Mass fraction] 100 % [facility] 02-12-2023 05:37-0400 Systolic blood pressure 138 mm[Hg] [facility] 02-08-2023 10:30-0400 Body height 160.02 cm Ayse Schwerer Other [facility] Other 02-08-2023 10:30-0400 Body mass index (BMI) [Ratio] 37.05 kg/m2 Ayse Schwerer Other [facility] Other 02-08-2023 10:30-0400 Body temperature 95.7 [degF] Ayse Schwerer Other [facility] Other 02-08-2023 10:30-0400 Body weight 94.89 kg Ayse Schwerer Other [facility] Other 02-08-2023 10:30-0400 Diastolic blood pressure 68 mm[Hg] Ayse Schwerer Other [facility] Other 02-08-2023 10:30-0400 SaO2% (BldA) [Mass fraction] 99 % Ayse Schwerer Other [facility] Other 02-08-2023 10:30-0400 Systolic blood pressure 108 mm[Hg] Ayse Schwerer Other [facility] Other 11-06-2022 17:15-0500 Body height 160.02 cm Ayse Schwerer Other [facility] Other 11-06-2022 17:15-0500 Body mass index (BMI) [Ratio] 41.16 kg/m2 Ayse Schwerer Other [facility] Other 11-06-2022 17:15-0500 Body temperature 97.5 [degF] Ayse Schwerer Other [facility] Other 11-06-2022 17:15-0500 Body weight 105.42 kg Ayse Schwerer Other [facility] Other 11-06-2022 17:15-0500 Diastolic blood pressure 82 mm[Hg] Ayse Schwerer Other [facility] Other 11-06-2022 17:15-0500 SaO2% (BldA) [Mass fraction] 99 % Ayse Schwerer Other [facility] Other 11-06-2022 17:15-0500 Systolic blood pressure 136 mm[Hg] Ayse Schwerer Other [facility] Other 09-05-2022 17:00-0500 Body height 160.02 cm Ayse Schwerer Other [facility] Other 09-05-2022 17:00-0500 Body mass index (BMI) [Ratio] 42.24 kg/m2 Ayse Schwerer Other [facility] Other 09-05-2022 17:00-0500 Body temperature 97.4 [degF] Ayse Schwerer Other [facility] Other 09-05-2022 17:00-0500 Body weight 108.18 kg Ayse Schwerer Other [facility] Other 09-05-2022 17:00-0500 Diastolic blood pressure 82 mm[Hg] Ayse Schwerer Other [facility] Other 09-05-2022 17:00-0500 SaO2% (BldA) [Mass fraction] 99 % Ayse Schwerer Other [facility] Other 09-05-2022 17:00-0500 Systolic blood pressure 122 mm[Hg] Ayse Schwerer Other [facility] Other 07-31-2022 10:30-0400 Body height 160.02 cm Ayse Schwerer Other [facility] Other 07-31-2022 10:30-0400 Body mass index (BMI) [Ratio] 43.54 kg/m2 Ayse Schwerer Other [facility] Other 07-31-2022 10:30-0400 Body temperature 97.3 [degF] Ayse Schwerer Other [facility] Other 07-31-2022 10:30-0400 Body weight 111.49 kg Ayse Schwerer Other [facility] Other 07-31-2022 10:30-0400 Diastolic blood pressure 88 mm[Hg] Ayse Schwerer Other [facility] Other 07-31-2022 10:30-0400 SaO2% (BldA) [Mass fraction] 99 % Ayse Schwerer Other [facility] Other 07-31-2022 10:30-0400 Systolic blood pressure 132 mm[Hg] Ayse Schwerer Other [facility] Other 04-27-2022 08:30-0400 Body height 160.02 cm Ayse Schwerer Other [facility] Other 04-27-2022 08:30-0400 Body mass index (BMI) [Ratio] 42.49 kg/m2 Ayse Schwerer Other [facility] Other 04-27-2022 08:30-0400 Body temperature 97.6 [degF] Ayse Schwerer Other [facility] Other 04-27-2022 08:30-0400 Body weight 108.82 kg Ayse Schwerer Other [facility] Other 04-27-2022 08:30-0400 Diastolic blood pressure 88 mm[Hg] Ayse Schwerer Other [facility] Other 04-27-2022 08:30-0400 SaO2% (BldA) [Mass fraction] 99 % Ayse Schwerer Other [facility] Other 04-27-2022 08:30-0400 Systolic blood pressure 126 mm[Hg] Ayse Schwerer Other [facility] Other 09-01-2021 16:15-0500 Body height 160.02 cm Ayse Schwerer Other [facility] Other 09-01-2021 16:15-0500 Body mass index (BMI) [Ratio] 40.15 kg/m2 Ayse Schwerer Other [facility] Other 09-01-2021 16:15-0500 Body temperature 96.5 [degF] Ayse Schwerer Other [facility] Other 09-01-2021 16:15-0500 Body weight 102.83 kg Ayse Schwerer Other [facility] Other 09-01-2021 16:15-0500 Diastolic blood pressure 84 mm[Hg] Ayse Schwerer Other [facility] Other 09-01-2021 16:15-0500 Respiratory rate 18 /min Ayse Schwerer Other [facility] Other 09-01-2021 16:15-0500 SaO2% (BldA) [Mass fraction] 98 % Ayse Schwerer Other [facility] Other 09-01-2021 16:15-0500 Systolic blood pressure 132 mm[Hg] Ayse Schwerer Other [employer] Other Encounters Encounter Date Encounter Type Care Provider Facility Start: 12-08-2024 End: 12-08-2024 Office outpatient visit 15 minutes Sami Barnhart DO Work Phone: [facility] Comment on above: Pre-op examination; PCOS (polycystic ovarian syndrome); Amenorrhea Start: 12-08-2024 End: 12-08-2024 Preprocedural examination done Sami Obey DO Work Phone: [facility] Start: 12-08-2024 End: 12-08-2024 ambulatory SAMI OBEY Not Available Start: 12-08-2024 End: 12-08-2024 Bamboo flowsheet Sami Obey DO Work Phone: [facility] Start: 12-08-2024 End: 12-08-2024 Bamboo flowsheet Sami Obey DO Work Phone: [facility] Start: 12-01-2024 End: 12-01-2024 ambulatory Ayse E Schwerer DO Work Phone: [facility] Work Phone: Start: 12-01-2024 End: 12-01-2024 Patient encounter procedure Ayse Schwerer DO Work Phone[facility] Work Phone: Start: 11-17-2024 End: 11-17-2024 Office outpatient visit 15 minutes Sami Obey DO Work Phone: [facility] Comment on above: PCOS (polycystic ova gilbert syndrome); Amenorrhea Start: 11-17-2024 End: 11-17-2024 ambulatory SAMI OBEY Not Available Start: 11-17-2024 End: 11-17-2024 Bamboo flowsheet Sami Obey DO Work Phone: [facility] Start: 11-17-2024 End: 11-17-2024 Bamboo flowsheet Sami Obey DO Work Phone: [facility] Start: 11-10-2024 End: 11-10-2024 ambulatory SAMI OBEY Not Available Start: 11-04-2024 End: 11-04-2024 Patient encounter procedure Ayse Schwerer DO Work Phone: [facility] Start: 11-04-2024 End: 11-04-2024 ambulatory Ayse E Schwerer DO Work Phone: [facility] Work Phone: Start: 11-04-2024 End: 11-04-2024 ambulatory Ayse E Schwerer DO Work Phone: [facility] Work Phone: Start: 11-04-2024 End: 11-04-2024 Patient encounter procedure Ayse Schwerer DO Work Phone: [facility] Work Phone: Start: 10-13-2024 End: 10-13-2024 ambulatory SAMI OBEY Not Available Start: 10-13-2024 End: 10-13-2024 Patient encounter procedure Sami Obey DO Work Phone: [facility] Work Phone: Start: 10-13-2024 End: 10-13-2024 Periodic preventive med est patient 40-64yrs Sami Obey DO Work Phone: [facility] Comment on above: PCOS (polycystic ova gilbert syndrome) (Primary Dx); Well woman exam with routine gynecological exam; Breast cancer screening by mammogram; Amenorrhea Start: 10-13-2024 End: 10-13-2024 Bamboo flowsheet Sami Obey DO Work Phone: [facility] Start: 10-13-2024 End: 10-21-2024 Bamboo flowsheet Sami Obey DO Work Phone: [facility] Start: 10-13-2024 End: 10-21-2024 Clinisync Result Encounter Sami Obey DO Work Phone: [facility] External Department Unsolicited Start: 08-11-2024 End: 08-11-2024 Patient encounter procedure DO Ayse Schwerer Work Phone: [facility] Start: 08-11-2024 End: 08-11-2024 ambulatory DO Ayse E Schwerer Work Phone: [facility] Work Phone: Start: 07-30-2024 Non-patient / Non-visit DO Matt tlin Schwerer Work Phone: [facility] Cardiology Work Phone: Start: 07-30-2024 End: 07-30-2024 ambulatory DO Ayse E Schwerer Work Phone: [facility] Work Phone: Start: 07-30-2024 End: 07-30-2024 Patient encounter procedure DO Ayse Schwerer Work Phone: [facility] Cardiology Work Phone: Start: 07-09-2024 End: 07-09-2024 ambulatory DO Ayse E Schwerer Work Phone: [facility] Work Phone: Start: 07-09-2024 End: 07-09-2024 Patient encounter procedure DO Ayse Schwerer Work Phone: [facility] Cardiology Work Phone: Start: 07-07-2024 End: 07-07-2024 ambulatory DO Ayse E Schwerer Work Phone: [facility] Work Phone: Start: 07-07-2024 End: 07-07-2024 Patient encounter procedure DO Ayse Schwerer Work Phone: [facility] [place] Work Phone: Start: 06-26-2024 Non-patient / Non-visit DO Matt tlin Schwerer Work Phone: [facility] [place] Work Phone: Start: 06-25-2024 End: 06-25-2024 ambulatory DO Ayse E Schwerer Work Phone: [facility] Work Phone: Start: 06-25-2024 End: 06-25-2024 Patient encounter procedure DO Ayse Schwerer Work Phone: [facility] Cardiology Work Phone: Start: 06-24-2024 Non-patient / Non-visit DO Matt tlin Schwerer Work Phone: [facility] Cardiology Work Phone: Start: 06-23-2024 End: 06-25-2024 Evaluation and management of inpatient DO Ayse Schwerer Work Phone: [facility] Work Phone: Start: 06-09-2024 End: 06-09-2024 ambulatory [facility] Work Phone: Start: 06-09-2024 End: 06-09-2024 Patient encounter procedure [facility] [place] Work Phone: Start: 01-10-2024 End: 01-10-2024 ambulatory [facility] [place] Work Phone: Start: 01-10-2024 End: 01-10-2024 Patient encounter procedure [facility] [place] Work Phone: Start: 07-30-2023 End: 07-30-2023 Admission to same day surgery center DO Ayse Schwerer Work Phone: [facility] Work Phone: Start: 07-30-2023 End: 07-30-2023 ambulatory DO Ayse E Schwerer Work Phone: [facility] Work Phone: Start: 07-13-2023 End: 07-13-2023 ambulatory DO Ayse E Schwerer Work Phone: [facility] Work Phone: Start: 07-13-2023 End: 07-13-2023 Patient encounter procedure DO Ayse Schwerer Work Phone: [facility] Work Phone: Start: 06-06-2023 End: 06-06-2023 ambulatory Imad Asaad Other [employer] Other Start: 06-06-2023 Telephone encounter Imad Asaad [facility] Start: 06-05-2023 End: 06-05-2023 ambulatory Ayse Schwerer Other [employer] Other Start: 06-05-2023 Telephone encounter Ayse Schwerer [facility] [place] Start: 05-22-2023 End: 05-22-2023 ambulatory Ayse Schwerer Other [employer] Other Start: 05-22-2023 Telephone encounter Ayse Schwerer [facility] [place] Start: 05-21-2023 End: 05-21-2023 ambulatory Ayse Schwerer Other [employer] Other Start: 05-21-2023 Office outpatient vi sit 15 minutes Ayse Schwerer [facility] [place] Start: 03-07-2023 End: 03-07-[address] SAMI BARNHART . Facility: Start: 02-26-2023 End: 02-26-2023 ambulatory Ayse Schwerer Other [employer] Other Start: 02-26-2023 Office outpatient vi sit 15 minutes Ayse Schwerer [facility] [place] Start: 02-22-2023 End: 02-22-2023 ambulatory Ayse Schwerer Other [employer] Other Start: 02-22-2023 Telephone encounter Ayse Schwerer [facility] Start: 02-20-2023 End: 02-20-2023 ambulatory Ayse Schwerer Other [employer] Other Start: 02-20-2023 Telephone encounter Ayse Schwerer [facility] Primary Care Start: 02-19-2023 End: 02-19-2023 Patient encounter procedure DO Ayse Schwerer Work Phone: [facility]-X[facility]Ray [facility] Start: 02-19-2023 End: 02-19-2023 ambulatory DO Ayse E Schwerer Work Phone: [facility] Work Phone: Start: 02-19-2023 Office outpatient vi sit 25 minutes Shira Olson [facility] Start: 02-12-2023 End: 02-12-2023 ambulatory Ayse Schwerer Other [employer] Other Start: 02-12-2023 Telephone encounter Ayse Schwerer [facility] Start: 02-12-2023 End: 02-12-2023 Emergency department patient visit Elmer Ward Facility:[facility] Start: 02-12-2023 End: 02-12-2023 Emergency department patient visit Elmer Ward [facility] Start: 02-08-2023 End: 02-08-2023 ambulatory Ayse Schwerer Other [employer] Other Start: 02-08-2023 Office outpatient vi sit 25 minutes Ayse Schwerer [facility] [place] Start: 01-18-2023 End: 01-18-2023 ambulatory Ayse Schwerer Other [employer] Other Start: 01-18-2023 Telephone encounter Ayse Schwerer [facility] [place] Start: 01-10-2023 End: 01-10-2023 ambulatory Ayse Schwerer Other [employer] Other Start: 01-10-2023 Telephone encounter Ayse Schwerer [facility] [place] Start: 01-02-2023 End: 01-02-2023 ambulatory Ayse Schwerer Other [facility] Other Start: 01-02-2023 Telephone encounter Ayse Schwerer [facility] [place] Start: 11-06-2022 End: 11-06-2022 ambulatory Ayse Schwerer Other [employer] Other Start: 11-06-2022 Office outpatient vi sit 15 minutes Ayse Schwerer [facility] [place] Start: 09-05-2022 End: 09-05-2022 ambulatory Ayse Schwerer Other [facility] Other Start: 09-05-2022 Office outpatient vi sit 25 minutes Ayse Schwerer [facility] [place] Start: 07-31-2022 Office outpatient vi sit 25 minutes Ayse Schwerer [facility] Start: 07-31-2022 End: 07-31-2022 ambulatory DO Ayse E Schwerer Work Phone: [employer] Other Start: 07-31-2022 End: 07-31-2022 Patient encounter procedure DO Ayse Schwerer Work Phone: [facility] Start: 04-27-2022 End: 04-27-2022 ambulatory Ayse Schwerer Other [employer] Other Start: 04-27-2022 Office outpatient vi sit 25 minutes Ayse Schwerer [facility] Start: 01-18-2022 End: 01-18-2022 ambulatory Ayse Schwerer Other [employer] Other Start: 01-18-2022 Telephone encounter Ayse Schwerer [facility] Start: 01-11-2022 End: 01-11-2022 ambulatory Ayse Schwerer Other [facility] Other Start: 01-11-2022 Telephone encounter Ayse Schwerer [facility] Start: 09-01-2021 End: 09-01-2021 ambulatory Ayse Schwerer Other [employer] Other Start: 09-01-2021 Office outpatient vi sit 25 minutes Ayse Schwerer [facility] Procedures Date Procedure Procedure Detail Performing Clinician Start: 10-13-2024 IGP,APTIMA HPV,AGE GDLN Sami Womacko DO Work Phone: Start: 10-13-2024 Microscopic observat ion [Identifier] in Cervix by Cyto stain Sami Obey DO Work Phone: Start: 06-24-2024 Doppler ultrasonogra phy of bilateral carotid arteries DO Ayse Vir2userer Work Phone: Start: 06-24-2024 CT angiography of co ronary arteries DO Ayse Schwerer Work Phone: Start: 06-23-2024 Plain chest X-ray DO Ka itlin Willerer Work Phone: Start: 07-30-2023 Screening colonoscopy D O Ayse Schwerer Work Phone: Start: 07-13-2023 Screening mammograph y of bilateral breasts DO Ayse Wiley Work Phone: Start: 04-21-2023 Colonoscopy Sami Shanta lorenzo DO Work Phone: Start: 09-11-2013 Tonsillectomy Elmer Jewell ener section Elmer Matson er Comment on above: X2 Other bilateral liga tion and division of fallopian tubes Elmer Ed Repair of tendo achilles Mag cota Ed Comment on above: LEFT Plan of Treatment Date Care Activity Detail Author Start: 04-21-2033 Screening for malignant neoplasm of colon [facility] Start: 10-13-2027 Screening for malignant neoplasm of cervix [facility] Start: 10-19-2025 End: 10-19-2025 Patient encounter procedure 10/19/2025 4:00 PM EST Office Visit [facility] [address] [place] [id number] Sami Barnhart, DO [address] [place] [address] [facility] Start: 12-17-2024 End: 12-17-2024 Patient encounter procedure 12/17/2024 2:30 PM EST Office Visit [facility] [address] [place] [address] Purvi Guevara MD [address] [place] [address] [facility] Start: 12-08-2024 End: 12-08-2024 Patient encounter procedure [facility] Comment on above: Arrived Start: 11-17-2024 End: 11-17-2024 Patient encounter procedure [facility] Comment on above: Arrived Start: 11-10-2024 End: 11-10-2024 Professional / ancillary services management 11/10/2024 2:30 PM EST Ancillary Procedure [facility] [address] [id number] [facility] Start: 11-04-[address] [facility] Start: 11-04-[address] [facility] Start: 11-04-2024 [facility] Start: 10-13-2024 End: 10-13-2025 DHEA DHEA Lab Routine PCOS (polycystic ovarian syndrome) Expected: 10/13/2024 (Approximate), Expires: 10/13/2025 [facility] Comment on above: Expected: 10/13/2024 (Approximate), Expi res: 10/13/2025 Start: 10-13-2024 End: 12-14-2025 MG Breast - bilateral Screening Bilateral screening mammogram Imaging Routine Breast cancer screening by mammogram Expected: 10/13/2024 (Approximate), Expires: 12/14/2025 [facility] Work Phone: Comment on above: Expected: 10/13/2024 (Approximate), Expi res: 12/14/2025 Start: 10-13-2024 End: 10-13-2025 Progesterone Progesterone Lab Routine PCOS (polycystic ovarian syndrome) Amenorrhea Expected: 10/13/2024 (Approximate), Expires: 10/13/2025 [facility] Comment on above: Expected: 10/13/2024 (Approximate), Expi res: 10/13/2025 Start: 10-13-2024 End: 10-13-2025 US for US PELVIS-TRANSVAG IF INDICATED Imaging Routine PCOS (polycystic ovarian syndrome) Expected: 10/13/2024 (Approximate), Expires: 10/13/2025 [facility] Comment on above: Expected: 10/13/2024 (Approximate), Expi res: 10/13/2025 Start: 06-25-2024 [facility] Start: 06-24-2024 Hepatic function panel [facility] Start: 06-24-2024 End: 06-24-2024 [facility] Start: 06-23-2024 [facility] Start: 06-23-2024 [facility] Start: 06-23-[address] [facility] Start: 06-23-2024 Doppler ultrasonography of bilateral carotid arteries US carotid doppler BI [facility] Start: 06-23-2024 Referral to cloud systems architect [facility] Start: 06-23-2024 [facility] Start: 06-22-2024 Influenza vaccination Influenza Vaccine (#1) [facility] Start: 07-30-2023 [facility] Start: 07-13-2023 Screening mammography of bilateral breasts MM screening mammo BI w/CAD [facility] Start: 02-19-2023 Radiography of thoracic spine XR thoracic spine 3V* [facility] Start: 02-19-2023 X-ray of cervical spine XR cervical spine 5V* [facility] Start: 2018 Screening for malignant neoplasm of breast Mammogram [facility] Start: 2008 Screening for malignant neoplasm of cervix [facility] Start: 1999 Screening for malignant neoplasm of cervix Pap Smear [facility] Start: 1978 Screening for malignant neoplasm of colon [facility] aPTT in Platelet poo r plasma by Coagulation assay [facility] CBC W Auto Different ial panel - Blood CBC and differential Lab Routine PCOS (polycystic ovarian syndrome) Ordered: 10/13/2024 [facility] Comment on above: Ordered: 10/13/2024 DHEA-sulfate DHEA-sulfate Lab Routine PCOS (polycystic ovarian syndrome) Ordered: 10/13/2024 [facility] Comment on above: Ordered: 10/13/2024 Estradiol Estradiol Lab Routine PCOS (polycystic ovarian syndrome) Amenorrhea Ordered: 10/13/2024 [facility] Comment on above: Ordered: 10/13/2024 Estradiol (E2) [Mass /volume] in Serum or Plasma [facility] hemoglobin determination [facility] Work Phone: Follicle stimulating hormone Fol licle stimulating hormone Lab Routine PCOS (polycystic ovarian syndrome) Ordered: 10/13/2024 [facility] Comment on above: Ordered: 10/13/2024 Glucose measurement estimated from glycated hemoglobin [facility] Glucose measurement estimated from glycated hemoglobin [facility] hCG, quantitative, hCG , quantitative, Lab Routine PCOS (polycystic ovarian syndrome) Ordered: 10/13/2024 [facility] Work Phone: Comment on above: Ordered: 10/13/2024 Hemoglobin A measurement [facility] Work Phone: Hemoglobin A1c/Hemoglobin.total in Blood Hemoglobin A1c Lab Routine Amenorrhea Ordered: 10/13/2024 [facility] [employer] Comment on above: Ordered: 10/13/2024 Hemoglobin A2 measurement [facility] Work Phone: Hemoglobin S [Presen ce] in Blood [facility] Work Phone: Hemoglobin S/Hemoglo bin.total in Blood [facility] Work Phone: Hepatic function panel [facility] Iron binding capacit y [Mass/volume] in Serum or Plasma [facility] Iron saturation [Mas s Fraction] in Serum or Plasma [facility] Laboratory data interpretation [facility] Work Phone: Luteinizing hormone Luteinizing hormone Lab Routine PCOS (polycystic ovarian syndrome) Ordered: 10/13/2024 [facility] [employer] Comment on above: Ordered: 10/13/2024 Lutropin [Units/volu me] in Serum or Plasma [facility] Patient Education Know your Meds [facility] Work Phone: Patient referral [facility] Work Phone: THIN PREP TIS PAP AN D HR HPV DNA THIN PREP TIS PAP AND HR HPV DNA Pathology and Cytology Routine Well woman exam with routine gynecological exam Ordered: 10/13/2024 [facility] Comment on above: Ordered: 10/13/2024 Thyrotropin [Units/v olume] in Serum or Plasma TSH Lab Routine PCOS (polycystic ovarian syndrome) Ordered: 10/13/2024 [facility] Comment on above: Ordered: 10/13/2024 Thyroxine (T4) free [Mass/volume] in Serum or Plasma T4, free Lab Routine PCOS (polycystic ovarian syndrome) Ordered: 10/13/2024 [facility] Comment on above: Ordered: 10/13/2024 [facility] Immunizations Immunization Date Immunization Notes Care Provider Fa cility 09-07-2024 influenza virus vaccine, unspecified formulation Sami Barnhart DO Work Phone: [facility] 11-10-2020 SARS-CoV-2 (COVID-19 ) mRNA-1273 vaccine Elmer Ed [facility] 10-13-2020 SARS-CoV-2 (COVID-19 ) mRNA-1273 vaccine Elmer Ed [facility] 07-22-2019 influenza virus vaccine, live, attenuated, for intranasal use Elmer Ed [facility] Comment on above: Result Comment: [facility] Payers Date Payer Category Payer Self-pay [id number] 2022 Private Health Insurance NICKY mendoza [id number] 2021 Unknown [id number] 1978 Unknown [id number] 1978 Unknown [id number] 727 1978 Unknown [id number]. 1259 1978 Unknown [id number]. 1259 1978 Unknown [id number] 9 1978 Unknown [id number] 1259 1959 Private Health Insurance [id number] [id number] Private Health Insurance [employer] [id number] Unknown HCAP/HFA/FAP Active [id number] Unknown [id number] 531 Unknown [id number] 531 Unknown [id number] 531 Social History Date Type Detail Facility End: 06-22-2022 Sex Assigned At [facility] Start: 1980 Sex Assigned At Female F [facility] Start: 02-03-2021 End: 12-01-2024 Tobacco smoking status Ex-smoker (finding) [facility] Tobacco smoking status Never [facility] Start: 03-12-2024 Gender identity Identifies as female gender (finding) [facility] Start: 03-12-2024 Sexual orientation Choose not to disclose [facility] Start: 11-04-2024 End: 12-01-2024 Sex Female (finding) [facility] NEGATED: Highlighted row [facility] Goals Date Patient Goal Desired Activity /State Functional Status Date Assessment Result Facility 06-25-2024 Functional status Patient at [facility] Work Phone: 02-12-2023 Functional Status N/A [facility] Mental Status Date Assessment Result Facility 06-25-2024 Cognitive function Cognitive Sta tus Patient at Baseline [facility] Work Phone: Clinical Notes 09-01-2021 to 12-08-2024 Arin Suarez - 12/08/2024 4:00 PM ESTSusan Brendan, [employer]LECT[employer]AIL DRAFT[employer]ERSON - 11/17/2024 3:20 PM EST Note Date & Type Note Facility 12-08-2024 History of Presen t illness Narrative Reason for Appointment: Patient ID: Shelbie Yang is a 44 y.o. female who presents for Pre-op Visit Patient presents today for Pre Op appointment. Patient is scheduled to undergo D&C Hysteroscopy, possible Myosure on 12/19/[address] Barnhart at [facility]. MEDICATIONS Current Outpatient Medications Medication Instructions Cannabinoids (medical cannabis) 1 each, As needed FLUoxetine (PROZAC) 40 mg, Daily levothyroxine (SYNTHROID, LEVOXYL) 125 mcg, Oral, Daily RT ALLERGIES Allergies Allergen Reactions Amoxicillin Blue Dyes (Parenteral) PROBLEMS Active Ambulatory Problems Diagnosis Date Noted Amenorrhea 11/17/2024 PCOS (polycystic ovarian syndrome) 11/17/2024 Resolved Ambulatory Problems Diagnosis Date Noted No Resolved Ambulatory Problems Past Medical History: Diagnosis Date Heart attack (CMS/HCC) HISTORY PAST MEDICAL HISTORY SOCIAL HISTORY Past Medical History: Diagnosis Date Heart attack (CMS/HCC) Social History Tobacco Use Smoking status: Not on file Smokeless tobacco: Not on file Substance Use Topics Alcohol use: Not on file Drug use: Not on file FAMILY HISTORY No family history on file. SURGICAL HISTORY No past surgical history on file. REVIEW OF SYSTEMS Review of Systems: Review of Systems Constitutional: Negative. HENT: Negative. Eyes: Negative. Respiratory: Negative. Cardiovascular: Negative. Gastrointestinal: Negative. Genitourinary: Negative. Musculoskeletal: Negative. Skin: Negative. Neurological: Negative. All other systems reviewed and are negative. Hematological: Negative. Endocrine: Negative. Allergic/Immunologic: Negative. OBJECTIVE Objective: Physical Exam Constitutional: Appearance: Normal appearance. She is well-developed. Cardiovascular: Rate and Rhythm: Normal rate and regular rhythm. Pulmonary: Effort: Pulmonary effort is normal. Breath sounds: Normal breath sounds. Abdominal: General: Bowel sounds are normal. There is no distension. Palpations: Abdomen is soft. Tenderness: There is no abdominal tenderness. There is no guarding or rebound. Musculoskeletal: General: No swelling. Normal range of motion. Right lower leg: No edema. Left lower leg: No edema. Neurological: Mental Status: She is alert and oriented to person, place, and time. Skin: General: Skin is warm and dry. Psychiatric: Mood and Affect: Mood normal. Behavior: Behavior normal. Vitals and nursing note reviewed. Exam conducted with a telescope maintenance present. Vitals: Estimated body mass index is 37.6 kg/m as calculated from the following: Height as of 03/07/23: 5' 1 . Weight as of this encounter: 199 lb. BP: 130/82 No LMP recorded. ASSESSMENT & PLAN ICD-10-CM 1. Pre-op examination Z01.818 2. PCOS (polycystic ovarian syndrome) E28.2 3. Amenorrhea N91.2 Pre Op: Patient is doing well but has complaints of PCOS and amenorrhea. I have discussed conservative management vs. surgical management with the patient in detail and patient desires surgical management at this time. Patient will undergo D&C Hysteroscopy, possible Myosure on 12/19/2024. Surgical consents were signed, mmc was reviewed, and patient is to proceed to [facility] OR. Follow Up: Patient is to follow up between 1-2 weeks post operative to assess proper healing and recovery from procedure. Documented by Izabela Cardona LPN on behalf of: Sami Barnhart DO documented in this encounter [facility] 11-17-2024 History of Presen t illness Narrative Reason for Appointment: Patient ID: Shelbie Yang is a 44 y.o. female who presents for Follow-up Patient presents today for Consult appointment. MEDICATIONS Current Outpatient Medications Medication Instructions Cannabinoids (medical cannabis) 1 each, As needed FLUoxetine (PROZAC) 40 mg, Daily levothyroxine (SYNTHROID, LEVOXYL) 125 mcg, Oral, Daily RT ALLERGIES Allergies Allergen Reactions Amoxicillin Blue Dyes (Parenteral) PROBLEMS Active Ambulatory Problems Diagnosis Date Noted No Active Ambulatory Problems Resolved Ambulatory Problems Diagnosis Date Noted No Resolved Ambulatory Problems Past Medical History: Diagnosis Date Heart attack (CMS/HCC) HISTORY PAST MEDICAL HISTORY SOCIAL HISTORY Past Medical History: Diagnosis Date Heart attack (CMS/HCC) Social History Tobacco Use Smoking status: Not on file Smokeless tobacco: Not on file Substance Use Topics Alcohol use: Not on file Drug use: Not on file FAMILY HISTORY No family history on file. SURGICAL HISTORY No past surgical history on file. REVIEW OF SYSTEMS Review of Systems: Review of Systems Genitourinary: Positive for menstrual problem. All other systems reviewed and are negative. OBJECTIVE Objective: Physical Exam Constitutional: Appearance: Normal appearance. She is well-developed. Cardiovascular: Rate and Rhythm: Normal rate and regular rhythm. Pulmonary: Effort: Pulmonary effort is normal. Breath sounds: Normal breath sounds. Abdominal: General: Bowel sounds are normal. There is no distension. Palpations: Abdomen is soft. Tenderness: There is no abdominal tenderness. There is no guarding or rebound. Musculoskeletal: General: No swelling. Normal range of motion. Right lower leg: No edema. Left lower leg: No edema. Neurological: Mental Status: She is alert and oriented to person, place, and time. Skin: General: Skin is warm and dry. Psychiatric: Mood and Affect: Mood normal. Behavior: Behavior normal. Vitals and nursing note reviewed. Exam conducted with a telescope maintenance present. Vitals: Estimated body mass index is 38.89 kg/m as calculated from the following: Height as of 23: 5' 1 . Weight as of this encounter: 205 lb 12.8 oz. BP: 130/76 No LMP recorded. ASSESSMENT & PLAN ICD-10-CM 1. PCOS (polycystic ovarian syndrome) E28.2 Patient presents today to discuss lab results and ultrasound results. Discussed conservative management to surgical management with patient. Patient desires to proceed to OR for Hysteroscopy D&C with possible MyoSure. Patient to be referred to [facility] for Thyroid disorder. Patient to return to clinic for pre-op appointment. Documented by Izabela Cardona LPN on behalf of: Sami Barnhart DO documented in this encounter [facility] 11-04-2024 Evaluation note Diagnosis Onset Date Resolution Essential (primary) hypertension acute November 04 1:20pm Non-cardiac chest pain acute Ja nuary 2024 1:20pm Palpitations noneactive October 1:20pm [facility] Work Phone: [phone]) 508-189112-23-2024 History of Present illness Narrative* Izabela Cardona, [employer]AIL DRAFTSPERSON - 10/13/2024 3:20 PM EST Reason for Appointment: Patient ID: Shelbie Yang is a 44 y.o. female who presents for Well Women Visit Patient presents today for Annual Exam. MEDICATIONS Current Outpatient Medications Medication Instructions Cannabinoids (medical cannabis) 1 each, As needed FLUoxetine (PROZAC) 40 mg, Daily levothyroxine (SYNTHROID, LEVOXYL) 125 mcg, Oral, Daily RT ALLERGIES Allergies Allergen Reactions Amoxicillin Blue Dyes (Parenteral) PROBLEMS Active Ambulatory Problems Diagnosis Date Noted No Active Ambulatory Problems Resolved Ambulatory Problems Diagnosis Date Noted No Resolved Ambulatory Problems Past Medical History: Diagnosis Date Heart attack (CMS/[facility]) HISTORY PAST MEDICAL HISTORY SOCIAL HISTORY Past Medical History: Diagnosis Date Heart attack (CMS/HCC) Social History Tobacco Use Smoking status: Not on file Smokeless tobacco: Not on file Substance Use Topics Alcohol use: Not on file Drug use: Not on file FAMILY HISTORY No family history on file. SURGICAL HISTORY History reviewed. No pertinent surgical history. REVIEW OF SYSTEMS Review of Systems: Review of Systems All other systems reviewed and are negative. OBJECTIVE Objective: Physical Exam Constitutional: Appearance: Normal appearance. She is well-developed. Genitourinary: Vulva normal. Breasts: Breasts are soft. Right: Normal. Left: Normal. Cardiovascular: Rate and Rhythm: Normal rate and regular rhythm. Pulmonary: Effort: Pulmonary effort is normal. Breath sounds: Normal breath sounds. Abdominal: General: Bowel sounds are normal. There is no distension. Palpations: Abdomen is soft. Tenderness: There is no abdominal tenderness. There is no guarding or rebound. Musculoskeletal: General: No swelling. Normal range of motion. Right lower leg: No edema. Left lower leg: No edema. Neurological: Mental Status: She is alert and oriented to person, place, and time. Skin: General: Skin is warm and dry. Psychiatric: Mood and Affect: Mood normal. Behavior: Behavior normal. Vitals and nursing note reviewed. Exam conducted with a telescope maintenance present. Vitals: Estimated body mass index is 37 kg/m as calculated from the following: Height as of 23: 5' 1 . Weight as of this encounter: 195 lb 12.8 oz. BP: 120/72 No LMP recorded (within months). ASSESSMENT & PLAN ICD-10-CM 1. PCOS (polycystic ovarian syndrome) E28.2 hCG, quantitative, TSH T4, free CBC and differential Follicle stimulating hormone Luteinizing hormone DHEA-sulfate DHEA US PELVIS-TRANSVAG IF INDICATED DHEA Progesterone Estradiol Progesterone 2. Well woman exam with routine gynecological exam Z01.419 THIN PREP TIS PAP AND HR HPV DNA 3. Breast cancer screening by mammogram Z12.31 Bilateral screening mammogram Bilateral screening mammogram 4. Amenorrhea N91.2 Hemoglobin A1c Progesterone Estradiol Progesterone Annual: Patient presents today for an annual exam. Patient states she is doing well and has no complaints. Pap was obtained without difficulty and patient given mammogram order to have scheduled/obtained. Orders Placed This Encounter Procedures Bilateral screening mammogram US PELVIS-TRANSVAG IF INDICATED hCG, quantitative, TSH T4, free CBC and differential Follicle stimulating hormone Luteinizing hormone Hemoglobin A1c DHEA-sulfate DHEA Progesterone Estradiol Follow Up: Patient is to return in one year for annual unless needed otherwise. Documented by Izabela Cardona LPN on behalf of: Sami Barnhart DO documented [facility] [id number] Progress note Author Jose Fox [facility] June 24, 2024 5:39pm Note Date/Time June 24, 2024 9:23am [facility] [address] [place] [address] Hospitalist Progress Note Signed Patient: Shelbie Yang MR#: [id number] : 1980 Acct:[id number] Age/Sex: 44 / F Adm Date: 4 Loc: 4P Room: 5U1819-6 Type: ADM IN Attending Dr: Jose Fox DO Copies to: ~ Date of Service: 06/24/2024 Subjective Subjective Narrative: Patient states that she feels a lot better today, she states that she has been sleeping well and has not had any chest or back pain episodes. States she last took her Synthroid on Sunday. On reevaluation, her carotid ultrasound and coronary CTA were completed. We have explained the results to her. She has no complaints at this time Exam Physical Exam Vital Signs: Temp Pulse Resp BP Pulse Ox O2 Del Method 97.5 F L 84 16 149/94 H 96 Room Air 06/24/24 08:00 06/24/24 08:00 06/24/24 08:00 06/24/24 08:00 06/24/24 08:00 06/24/24 08:00 Narrative: GENERAL: Alert, oriented, appears stated age, comfortable CARDIOVASCULAR: Regular rate and regular rhythm, no murmurs/rubs/gallops RESPIRATORY: nonlabored work of breathing on room air, CTAB, symmetric chest rise, no wheezes/rales/rhonci ABDOMEN: Soft, non-tender, non-distended, normal bowel sounds BACK: No midline or paraspinal tenderness. EXTREMITIES: No edema PSYCHIATRIC: Good eye contact, appropriate mood and affect, cooperative Objective Lab Results 06/24/24 04:39 06/24/24 04:39 Meds Allergies and Active Meds Allergies acetaminophen [Darvocet-N 100] Allergy (Unknown, Verified 06/23/24 12:53) Gastrointestinal Upset amoxicillin Allergy (Unknown, Verified 06/23/24 12:53) Diarrhea codeine Allergy (Unknown, Verified 06/23/24 12:53) GI upset lamotrigine [Lamictal] Allergy (Unknown, Verified 06/23/24 12:53) itching propoxyphene [Darvocet-N 100] Allergy (Unknown, Verified 06/23/24 12:53) Diarrhea Active Meds: Active Medications Generic Name Dose Route Start Last Admin Trade Name Freq PRN Reason Stop Dose Admin Acetaminophen 650 mg 06/23/24 16:33 06/24/24 05:01 Acetaminophen 325 Mg Tablet PO 06/23/25 16:32 650 mg Q6HR PRN Administration pain or fever Aspirin 81 mg 06/24/24 09:00 06/24/24 09:12 Aspirin 81 Mg Tablet. PO 06/24/25 08:59 81 mg DAILY LEON Administration Atorvastatin Calcium 80 mg 06/23/24 21:00 06/23/24 21:16 Atorvastatin 80 Mg Tablet PO 06/23/25 20:59 80 mg QPM LEON Administration Fluoxetine HCl 40 mg 06/24/24 09:00 06/24/24 09:12 Fluoxetine 20 Mg Capsule PO 06/24/25 08:59 40 mg DAILY LEON Administration Heparin Sodium (Porcine) 4,000 unit 06/23/24 15:51 Heparin *Protocol Bolus* 5,000 Unit/Ml Vial IV-PUSH 06/23/25 15:50 PROTOCOL PRN PTT < 40 Heparin Sodium (Porcine) 2,500 unit 06/23/24 16:02 Heparin *Protocol Bolus* 5,000 Unit/Ml Vial IV-PUSH 06/23/25 15:50 PROTOCOL PRN PTT 40-53 Hydralazine HCl 5 mg 06/23/24 16:33 Hydralazine 20 Mg/Ml Vial IV-PUSH 06/23/25 16:32 Q4H PRN Hypertension Heparin Sodium/Sodium Chloride 25,000 unit in 250 mls @ 8 mls/hr 06/23/24 16:05 06/23/24 23:40 Heparin IV 06/23/25 15:59 700 units/hr .Q24H LEON 7 mls/hr Titration Protocol 800 UNITS/HR Levothyroxine Sodium 125 mcg 06/24/24 06:30 Levothyroxine 125 Mcg Tablet PO 06/24/25 06:29 DAILY.0630 [facility] Nitroglycerin 1 each 06/23/24 16:40 06/24/24 05:23 Nitroglycerin Patch 0.4 Mg/Hr 1 Each Patch.Td24 TRANSDERML 06/23/25 16:39 Not Given DAILY@0600 [facility] Nitroglycerin 0.4 mg 06/23/24 16:56 Nitroglycerin 0.4 Mg Tab.Subl SUBLINGUAL 06/23/25 16:55 Q5M PRN Chest Pain Sodium Chloride 0 ml 06/23/24 12:52 06/23/24 13:54 Sodium Chloride 0.9 % 10 Ml Syringe IV-PUSH 06/23/25 12:51 10 ml PRN PRN Administration Flush Sodium Chloride 0 ml 06/23/24 22:00 06/24/24 05:22 Sodium Chloride 0.9 % 10 Ml Syringe IV-PUSH 06/23/25 21:59 Not Given QSHIFT [facility] A&P - Hospitalist Assessment/Plan (1) Acute coronary syndrome: (2) Hypertension: (3) Beta thalassemia: (4) Hypothyroidism: (5) NSVT (nonsustained ventricular tachycardia): Plan - Troponin has decreased to 19.2 this AM. - Carotid ultrasound and coronary CTA completed. Ultrasound showed MILD stenosis bilaterally (<50%), coronary CTA showed minimal to no plaque. - Coreg started by cardiology - Hydralazine for hypertension control - Synthroid for hypothyroidism +++ +++ The patient was counseled about the above and cardiology's plan to monitor overnight due to the tachycardia that was seen at the end of the CTA. We inquired with the patient and she says that she has been compliant with Synthroid taking it every single day (not every other day, the way it is enteredin the home medication section) she just missed a dose on Sunday due to coming here to the hospital. Given this I will increase her dose of Synthroid up to 150 mcg daily and she can follow-up with her PCP regarding that in the future. Documented By: Jose Fox DO [id number] Signed By: <Electronically signed by Jose Fox DO> 06/24/24 1739 <Electronically signed by DO BIJAL Enamorado> 06/24/24 1705 [facility] Work Phone: 1(654) 541-861509-03-2024 Consult note Author Ana Chapman [facility] June 24, 2024 12:30pm Note Date/Time June 24, 2024 12:30pm [facility] [address] [place] [address] Cardiology Consult Note Signed Patient: Shelbie Yang MR#: [id number] : 1980 Acct:[id number] Age/Sex: 44 / F Adm Date: 4 Loc: Room: [address] [place] [address] Type: ADM IN Attending Dr: Jose Fox DO Copies to: DO Jose Stratton DO Ling D Twohig, DO~ Cardiology HPI History of Present Illness Consult Date: 06/24/24 Reason for Consult: Chest pain HPI: Ms. Yang is a 44 year old female with history of prediabetes, hypertension, and beta-thalassemia presenting with chest pain onset few days ago. She describes it as constant left-sided pain radiating towards her back, worse with deep breaths, and better with heat. She is taking ibuprofen and Tylenol for it whichhave not helped. She states the pain is a 3-/10 at baseline and at its worst germania 9-10/10. She also reports palpitations, dyspnea, nausea, and dizziness. She states that she was at a concert on Sunday and when heading up the stairs she became short of breath. She teaches a nursing class, and noticed abnormal EKGs on herself. She reports extensive family history of cardiac disease-her father had heart attack at 50, mother at 60 of heart attack. She smoked 1 pack/day for 31 years, quit in 2021. Upon evaluation patient's ECG which demonstrates sinus bradycardia telemetry didnot reveal any significant cardiac arrhythmias overnight. Patient was seen and evaluated bedside patient is resting comfortably able to answer question clearlywithout exhibiting any signs of distress. Further clarification appears patientto have chest pain for the first time sharp in nature localized that she can pinpoint with the finger. Patient denies other cardiac symptoms which differs from presentation as she denied palpitation, nausea, diaphoresis, or postevent prostration. Patient did say that her symptoms lasted approximately 30 minutes. Patient was able to reliably confirm she has quit smoking about 2 years now andshe does have strong family history both her parents has had heart attack. Patient also reports approximately 3 to 5 years ago she had was evaluated by a cloud systems architect and she had a abnormal stress test but because of her risk was low no further evaluation treatment or invasive heart cath was done at that time. Extensive discussion with the patient regarding her risk factors presentations as well as treatment options. After thoroughly contemplated both risk and benefit patient has decided to proceed with coronary CTA to further evaluate andassess the likelihood of significant CAD. Cardiac focused physical exam: General: Alert and oriented x 3 without evidence of distress Cardiovascular: Regular rate rhythm without murmurs gallop Pulmonary: Bilateral clear Extremity: 2+ distal pulses without edema Review of Systems Constitutional Constitutional: Denies chills, Denies fever(s), Denies headache(s) and Denies weakness Eyes Eyes: Denies change in vision ENT Ears, Nose, Mouth, and Throat: Reports dizziness, Denies headache(s), Denies nasal congestion and Denies sore throat Cardiovascular Cardiovascular: Reports chest pain, Denies dyspnea, Reports dyspnea on exertion and Denies leg edema Respiratory Respiratory: Denies cough, Denies dyspnea and Reports dyspnea on exertion Gastrointestinal Gastrointestinal: Denies abdominal pain, Denies diarrhea, Reports nausea and Denies vomiting Genitourinary Genitourinary: Denies dysuria and Denies urinary urgency Musculoskeletal Musculoskeletal: Reports back pain, Denies numbness, Denies stiffness and Deniestingling Integumentary/Breasts Skin/Breast: Denies new lesions and Denies rash Neurologic Neurologic: Reports dizziness, Denies headache(s), Denies numbness, Denies tingling and Denies weakness [facility] Medical History CPAP (continuous positive airway pressure) dependence Problem List clean-up per request of Phys. EHR Cmte Fibromyalgia Problem List clean-up per request of Phys. EHR Cmte Hypothyroid Problem List clean-up per request of Phys. EHR Cmte Depression Problem List clean-up per request of Phys. EHR Cmte Surgical History Hx of tubal ligation Hx of tonsillectomy Problem List clean-up per request of Phys. EHR Cmte H/O Achilles tendon repair left x 3 Problem List clean-up per request of Phys. EHR Cmte Family History (Updated 06/23/24 @ 17:26 by Arpan Enamorado DO, RES) Mother Heart disease Daughter COPD (chronic obstructive pulmonary disease) Father Heart disease Grandparent Heart disease Sister Carotid artery stenosis Social History Smoking Status: Former smoker Tobacco Type: cigarettes Substance Use Type: Marijuana Substance Abuse Comment: Pt uses THC/CBD gummies daily for fibromyalgia/pain management Meds Medications and Allergies Allergies acetaminophen [Darvocet-N 100] Allergy (Unknown, Verified 06/23/24 12:53) Gastrointestinal Upset amoxicillin Allergy (Unknown, Verified 06/23/24 12:53) Diarrhea codeine Allergy (Unknown, Verified 06/23/24 12:53) GI upset lamotrigine [Lamictal] Allergy (Unknown, Verified 06/23/24 12:53) itching propoxyphene [Darvocet-N 100] Allergy (Unknown, Verified 06/23/24 12:53) Diarrhea Home Medications fluoxetine 40 mg capsule 40 mg PO DAILY #90 caps 02/04/24 [Rx Confirmed 06/23/24] levothyroxine 125 mcg tablet (Synthroid) 125 mcg PO Q48HR 06/24/24 [History Confirmed 06/24/24] Exam Physical Exam Vital Signs: Temp Pulse Resp BP Pulse Ox O2 Del Method 97.5 F L 84 16 149/94 H 96 Room Air 06/24/24 08:00 06/24/24 08:00 06/24/24 08:00 06/24/24 08:00 06/24/24 08:00 06/24/24 08:00 Results - Cardiology Labs 06/24/24 04:39 06/24/24 04:39 Lab results: Cardiac Enzymes 06/23/24 06/23/24 06/23/24 Range/Units 13:15 17:41 19:21 AST (13-39) U/L Total Creatine Kinase 72 63 69 (30-223) U/L B-Natriuretic Peptide 18.0 (5-100) pg/mL 06/23/24 06/24/24 Range/Units 22:54 04:39 AST 16 (13-39) U/L Total Creatine Kinase 56 46 (30-223) U/L B-Natriuretic Peptide (5-100) pg/mL Lipids 06/24/24 Range/Units 04:39 Triglycerides 64 (0-149) mg/dL Cholesterol 170 (140-200) mg/dL HDL Cholesterol 47 (23-92) mg/dL Cholesterol/HDL Ratio 3.6 (<5.0) CBC 06/23/24 06/24/24 Range/Units 13:15 04:39 RBC 5.17 H 4.90 (3.60-5.00) X10E6/uL Hgb 10.8 L 10.4 L (11.8-15.4) g/dL Hct 33.8 L 31.7 L (34.0-46.4) % Plt Count 191 157 (150-450) x10E3/uL Neut # (Auto) 5.3 3.2 (1.8-7.7) x10E3/uL Lymph # (Auto) 2.5 3.0 (1.00-4.8) x10E3/uL Archer # (Auto) 0.3 0.3 (0.0-0.8) x10E3/uL Eos # (Auto) 0.1 0.2 (0.0-0.45) x10E3/uL Baso # (Auto) 0.1 0.0 (0.0-0.2) x10E3/uL Comprehensive Metabolic Panel 06/23/24 06/24/24 Range/Units 13:15 04:39 Sodium 139 140 (136-145) mmol/L Potassium 3.4 L 4.3 (3.5-5.1) mmol/L Chloride 106 108 H (98-107) mmol/L Carbon Dioxide 26.2 27.4 (21.0-31.0) mmol/L BUN 9 11 (7-25) mg/dL Creatinine 0.86 0.82 (0.60-1.20) mg/dL Glucose 91 98 (70-100) mg/dL Calcium 8.8 8.4 L (8.6-10.3) mg/dL Direct Bilirubin 0.10 (0.03-0.18) mg/dL Indirect Bilirubin 0.5 mg/dL AST 16 (13-39) U/L ALT 7 (7-52) U/L Alkaline Phosphatase 30 L (34-104) U/L Total Protein 6.0 L (6.4-8.9) gm/dL Albumin 3.7 (3.5-5.7) gm/dL Intake and Output 06/23/24 06/24/24 06/24/24 23:59 07:59 15:59 Intake Total 400 / 400 0 / 0 Balance 400 / 400 0 / 0 Intake: Oral 400 / 400 0 / 0 Other: # Unmeasured Voids 2 2 Weight 86.5 kg 88.4 kg Date of Last Bowel Movement 06/23/24 06/23/24 Patient Weight 06/24/24 23:59 Weight 88.4 kg Lab 06/23/24 06/23/24 06/24/24 13:15 22:54 04:39 PT 13.3 H INR 1.2 APTT 33.2 80.5 H 63.0 H 06/24/24 10:59 PT INR APTT 48.7 H A&P - Cardiology (1) Chest pain: Code(s): R07.9 - Chest pain, unspecified (2) Hypertension: Code(s): I10 - Essential (primary) hypertension (3) Prediabetes: Code(s): R73.03 - Prediabetes (4) Anxiety, generalized: Code(s): F41.1 - Generalized anxiety disorder (5) Family history of cardiac disorder: Code(s): Z82.49 - Family history of ischemic heart disease and other diseases of the circulatory system Plan Given patient's strong family history of cardiac disease, multiple cardiac risk factors including prior history of tobacco dependence and clinical symptoms along with mildly elevated troponin we believe further evaluation to rule out CAD would be appropriate. Given that patient had a abnormal stress test severalyears ago repeating the stress test would be of little benefit. After thoroughly discussed with the patient, at the patient's request we will proceed with a coronary CTA to rule out significant coronary obstruction. Recommend patient to be continue monitor on telemetry; and continue her inpatient medication with the addition of beta-taquerai (with holding parameters) Further recommendations to come pending CTA results Thank you for this consultation, cardiology continue to follow. Documented By: Ana Chapman DO 06/24/24 1222 Signed By: <Electronically signed by Ana Chapman DO> 06/24/24 1230 [facility] Work Phone: 1(947) 677-793309-02-2024 History and physical note Author Jose Fox [facility] June 23, 2024 5:38pm Note Date/Time June 23, 2024 5:14pm [facility] [address] [place] [address] Hospitalist H&P Signed Patient: Shelbie Yang MR#: [id number] : 1980 Acct:[id number] Age/Sex: 44 / F Adm Date: 4 Loc: Room: [address] [place] [address] Type: ADM IN Attending Dr: Jose Fox DO Copies to: Arpan Enamorado DO, DO Jose August DO~ HPI DATE OF EXAMINATION: 06/23/24 CHIEF COMPLAINT: Chest pain HISTORY OF PRESENT ILLNESS: Patient is a 44-year-old female with history of prediabetes, hypertension, and beta-thalassemia presenting with chest pain onset few days ago. She describes it as constant left-sided pain radiating towards her back, worse with deep breaths, and better with heat. She is taking ibuprofen and Tylenol for it whichhave not helped. She states the pain is a 3-/10 at baseline and at its worst germania 9-10/10. She also reports palpitations, dyspnea, nausea, and dizziness. She states that she was at a concert on Sunday and when heading up the stairs she became short of breath. She teaches a nursing class, and noticed abnormal EKGs on herself. She reports extensive family history of cardiac disease-her father had heart attack at 50, mother at 60 of heart attack. She smoked 1 pack/day for 31 years, quit in 2021. Review of Systems Constitutional Constitutional: Denies chills, Denies fever(s), Denies headache(s) and Denies weakness Eyes Eyes: Denies change in vision ENT Ears, Nose, Mouth, and Throat: Denies headache(s), Denies nasal congestion and Denies sore throat Cardiovascular Cardiovascular: Reports chest pain, Reports dyspnea on exertion and Denies leg edema Respiratory Respiratory: Denies cough and Denies dyspnea Gastrointestinal Gastrointestinal: Denies abdominal pain, Denies diarrhea, Reports nausea and Denies vomiting Genitourinary Genitourinary: Denies dysuria and Denies urinary urgency Musculoskeletal Musculoskeletal: Reports back pain, Denies numbness, Denies stiffness and Deniestingling Integumentary/Breasts Skin/Breast: Denies new lesions and Denies rash Neurologic Neurologic: Reports dizziness, Denies headache(s), Denies numbness, Denies tingling and Denies weakness [facility] Medical History CPAP (continuous positive airway pressure) dependence Problem List clean-up per request of Phys. EHR Cmte Fibromyalgia Problem List clean-up per request of Phys. EHR Cmte Hypothyroid Problem List clean-up per request of Phys. EHR Cmte Depression Problem List clean-up per request of Phys. EHR Cmte Surgical History Hx of tubal ligation Hx of tonsillectomy Problem List clean-up per request of Phys. EHR Cmte H/O Achilles tendon repair left x 3 Problem List clean-up per request of Phys. EHR Cmte Family History (Updated 06/23/24 @ 17:26 by Arpan Enamorado, DO, RES) Mother Heart disease Daughter COPD (chronic obstructive pulmonary disease) Father Heart disease Grandparent Heart disease Sister Carotid artery stenosis Social History Smoking Status: Former smoker Substance Use Type: None Substance Abuse Comment: gummies, has a card Meds Medications and Allergies Allergies acetaminophen [Darvocet-N 100] Allergy (Unknown, Verified 06/23/24 12:53) Gastrointestinal Upset amoxicillin Allergy (Unknown, Verified 06/23/24 12:53) Diarrhea codeine Allergy (Unknown, Verified 06/23/24 12:53) GI upset lamotrigine [Lamictal] Allergy (Unknown, Verified 06/23/24 12:53) itching propoxyphene [Darvocet-N 100] Allergy (Unknown, Verified 06/23/24 12:53) Diarrhea Home Medications fluoxetine 40 mg capsule 40 mg PO DAILY #90 caps 02/04/24 [Rx Confirmed 06/23/24] levothyroxine 125 mcg tablet (Synthroid) 125 mcg PO DAILY #90 tabs 02/04/24 [Rx Confirmed 06/09/24] Exam Physical Exam Vital Signs: Temp Pulse Resp BP Pulse Ox O2 Del Method 98.5 F 50 L 16 165/78 H 100 Room Air 06/23/24 12:58 06/23/24 16:30 06/23/24 16:30 06/23/24 16:30 06/23/24 16:30 06/23/24 16:30 Narrative: GENERAL: Alert, oriented, appears stated age, comfortable CARDIOVASCULAR: Regular rate and regular rhythm, no murmurs/rubs/gallops RESPIRATORY: nonlabored work of breathing on room air, CTAB, symmetric chest rise, no wheezes/rales/rhonci ABDOMEN: Soft, non-tender, non-distended, normal bowel sounds BACK: No midline or paraspinal tenderness. Tender to palpation left shoulder blade. EXTREMITIES: No edema PSYCHIATRIC: Good eye contact, appropriate mood and affect, cooperative +++ +++ DR Fox Physical Exam: General: Awake. Alert. Oriented x 3. Skin: No systemic rashes or lesions. Lower extremities: No edema radicles bilaterally. Psychiatric: Normal. Good insight. Neurologic: Moves both arms and both legs well so I see no gross focal neurologic deficits. Eyes: Conjunctive sclera clear. EOMI. Pulmonary: Clear to auscultation throughout. No wheezing. No rhonchi. No crackles. Cardiac: Sinus bradycardia in the moderate 55 bpm. No rubs or gallops to auscultation. GI: Abdomen soft, normal bowel sounds auscultation. Osteopathic: Does have upper thoracic vertebrae rotated to the left causing rhomboid muscle pain along the border of the scapula on the left. YANIRA Risk Score YANIRA Risk Score Predictor Presentation: Recent (>/=24hr) Angina and Increased Cardiac Marker Score Risk Score (0-7): 2 Results - Hospitalist H&P Lab Results Labs: Laboratory Last Values Corrected WBC 8.4 X10E3/uL (3.8-11.6) 06/23/24 13:15 Uncorrected WBC Count 8.4 x10E3/uL (3.8-11.6) 06/23/24 13:15 RBC 5.17 X10E6/uL (3.60-5.00) H 06/23/24 13:15 Hgb 10.8 g/dL (11.8-15.4) L 06/23/24 13:15 Hct 33.8 % (34.0-46.4) L 06/23/24 13:15 MCV 65.4 fl (80-100) L 06/23/24 13:15 MCH 21.0 pg (24.7-34.3) L 06/23/24 13:15 MCHC 32.0 g/dL (32.0-35.0) 06/23/24 13:15 RDW 16.3 % (11.9-15.3) H 06/23/24 13:15 Plt Count 191 x10E3/uL (150-450) 06/23/24 13:15 MPV 9.1 fl (6.3-10.7) 06/23/24 13:15 Neut % (Auto) 63.5 % (.) 06/23/24 13:15 Lymph % (Auto) 30.3 % (.) 06/23/24 13:15 Archer % (Auto) 4.1 % (.) 06/23/24 13:15 Eos % (Auto) 1.2 % (.) 06/23/24 13:15 Baso % (Auto) 0.9 % (.) 06/23/24 13:15 Nucleat RBC Rel Count 0.1 /100 WBC (0-0.5) 06/23/24 13:15 Neut # (Auto) 5.3 x10E3/uL (1.8-7.7) 06/23/24 13:15 Lymph # (Auto) 2.5 x10E3/uL (1.00-4.8) 06/23/24 13:15 Archer # (Auto) 0.3 x10E3/uL (0.0-0.8) 06/23/24 13:15 Eos # (Auto) 0.1 x10E3/uL (0.0-0.45) 06/23/24 13:15 Baso # (Auto) 0.1 x10E3/uL (0.0-0.2) 06/23/24 13:15 Monocyte Dist Width Test not performed % (0.00-20.00) 06/23/24 13:15 Platelet Estimate Normal (Normal) 06/23/24 13:15 Plt Morphology Comment Normal (Normal) 06/23/24 13:15 RBC Morphology N/A 06/23/24 13:15 Hypochromasia Marked 06/23/24 13:15 Poikilocytosis Moderate 06/23/24 13:15 Anisocytosis Moderate 06/23/24 13:15 Microcytosis Moderate 06/23/24 13:15 Target Cells Slight 06/23/24 13:15 Tear Drop Cells Slight 06/23/24 13:15 Ovalocytes Slight 06/23/24 13:15 Acanthocytes (Spur) Slight 06/23/24 13:15 Schistocytes Slight 06/23/24 13:15 PT 13.3 Seconds (9.0-12.9) H 06/23/24 13:15 INR 1.2 06/23/24 13:15 APTT 33.2 Seconds (25.1-36.5) 06/23/24 13:15 PHA Creatinine Clear 81.60 06/23/24 13:15 Sodium 139 mmol/L (136-145) 06/23/24 13:15 Potassium 3.4 mmol/L (3.5-5.1) L 06/23/24 13:15 Chloride 106 mmol/L (98-107) 06/23/24 13:15 Carbon Dioxide 26.2 mmol/L (21.0-31.0) 06/23/24 13:15 Anion Gap 10.2 mEq/L (6.0-15.0) 06/23/24 13:15 BUN 9 mg/dL (7-25) 06/23/24 13:15 Creatinine 0.86 mg/dL (0.60-1.20) 06/23/24 13:15 Est GFR (CKD-EPI) > 60.0 mL/Min 06/23/24 13:15 Glucose 91 mg/dL (70-100) 06/23/24 13:15 Calcium 8.8 mg/dL (8.6-10.3) 06/23/24 13:15 Total Creatine Kinase 72 U/L (30-223) 06/23/24 13:15 Troponin I High Sens 48.1 pg/mL (0.0-15.0) H 06/23/24 15:14 B-Natriuretic Peptide 18.0 pg/mL (5-100) 06/23/24 13:15 HCG, Qual Negative 06/23/24 13:15 Assessment & Plan Assessment/Plan (1) Acute coronary syndrome: (2) Hypertension: (3) Beta thalassemia: Plan - Admit to hospital - Repeat troponin and EKG. Troponin increased from 7.3 at initial ER draw to 48.1 2 hours later. EKG showed anterior T wave inversions - Nitroglycerin patch - Carotid ultrasound - Hydralazine for hypertension control - Heparin drip on the ACS protocol - Replete hypokalemia - Consult cardiology - NPO after midnight for possible cardiac catheterization. ++ ++ I personally examined the patient on this day of the encounter. I reviewed the relevant history, performed the mosher elements of the physical examination, and coordinated the plan of care and I confirmed the resident's medical documentationas written. - - - Jose Fox DO. Internal Medicine + Hospitalist attending physician. IP vs OBS Justification Based on differential dx, clinical care plan, and risk of adverse events, if untreated, in my clinical judgement this patient requires an acute care setting as: INPATIENT because of an expectation of an over 2 midnight stay. Estimated length of stay (# of days): 2 Documented By: Jose Fox 1702 Signed By: <Electronically signed by Jose Fox DO> 06/23/24 1738 <Electronically signed by DO BIJAL Enamorado> 06/23/24 1727 [facility] Work Phone: 1([phone]) 202-225210-09-2023 Procedure [facility]07-31-2023 Evaluation note* Encounter Date Diagnosis Assessment Notes Treatment Notes Treatment Clinical Notes Apr, BMI 35.0-35.9,adult (ICD-10 - Z68.35) is on semaglutide through some online, brought some online form for assistance with ozempic to fill out. Apr, Hypertension, essential (ICD-10 - I10) controlled. Apr, Breast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 your child unattended. - Do NOT make important personal or business decisions or sign any legal documents. - Eat solid foods and drink liquids in smaller amounts than usual until normal appetite returns. If you should experience an upset stomach, liquids high in sugar content (soda, Ralf-Aid, non-acid juices) are recommended. - You can resume normal activities tomorrow. FOLLOW UP & RECOMMENDATIONS: -Notify the doctor if you have any problems. -Repeat colonoscopy in 10 years -Follow up with PCP. -Office number [phone]. [facility] Work Phone: Progress note No data available for this section [facility] Summary Purpose Family History Relationship Condition Age at Onset Recorded Date/T sushma Not Specified Heart disease Unknown daughter Chronic obstructive pulmonary disease Unk nown Relationship Condition Age at Onset Recorded Date/T sushma mother Heart disease Unknown daughter Chronic obstructive pulmonary disease Unk nown Relationship Condition Age at Onset Recorded Date/T sushma mother Heart disease Unknown daughter Chronic obstructive pulmonary disease Unk nown father Heart disease Unknown grandparent Heart disease Unknown sister Stenosis of carotid artery Unknown Relationship Condition Age at Onset Recorded Date/T sushma mother Heart disease Unknown daughter Chronic obstructive pulmonary disease Unk nown father Chronic obstructive pulmonary disease Unk nown High blood cholesterol Unknown grandparent Heart disease Unknown sister Stenosis of carotid artery Unknown Advance Directives Advance Directive Response Recorded Date/ Time Advance Directives No April 11 12:25pm Advance Directive Response Recorded Date/ Time Advance Directives No July 30, 2024 11:16am Advance Directive Response Recorded Date/ Time Advance Directives No July 30, 2024 10:16am Reason for Referral Reason screen colon cancer Diagnosis 1 Colon cancer screeni brock (Z12.11) Referral Organization [facility] Referring Provider First Name Ayse Referring Provider Last Name Saurabh Referring Provider Specialty [facility] Referred Organization Unknown Facility Referred Provider Specialty Gastroentero logy Referral Priority Routine Reason * FU 05/04 noms de rm - nonhealing skin lesion forehead Diagnosis 1 Skin lesion (L98.9) Referral Organization [facility] Referring Provider First Name Ayse Referring Provider Last Name Saurabh Referring Provider Specialty [facility] Referred Organization [facility] Referred Provider Odilia Bryant Referred Address ,[place], [place],[address] Referred Provider Specialty Dermatology Referral Priority Routine General Notes Sweetie Javier 04/2022 01:13:00 PM > referral received and faxed Chief Complaint and Reason for Visit Chief Complaint See order Chief Complaint M79.661 M54.6 S16.1X XS Chief Complaint Z12.31 Chief Complaint Z12.31 Screening Chief Complaint Left side of face hu rts Chief Complaint Dizziness Chief Complaint Dizziness chest pain Reason for Visit Beta thalassemia Dizziness Hypothyroidism Acute coronary syndrome Beta thalassemia Hypertension Chief Complaint Dizziness chest pain chest pain zio Reason for Visit Beta thalassemia Dizziness Hypothyroidism Acute coronary syndrome Anxiety, generalized Beta thalassemia Chest pain Family history of cardiac disorder Hypertension Hypothyroidism Non-ST elevation [place] (NSTEMI) NSVT (nonsustained ventricular tachycardia) Prediabetes Chief Complaint Dizziness chest pain chest pain zio Amb Documentation Reason for Visit Beta thalassemia Dizziness Hypothyroidism Anxiety, generalized Beta thalassemia Family history of cardiac disorder Hypertension Hypothyroidism NSVT (nonsustained ventricular tachycardia) Prediabetes NSVT (nonsustained ventricular tachycardia) Elevated troponin Hypothyroidism NSVT (nonsustained ventricular tachycardia) Chief Complaint Dizziness chest pain chest pain zio Amb Documentation zio Reason for Visit Beta thalassemia Dizziness Hypothyroidism Anxiety, generalized Beta thalassemia Family history of cardiac disorder Hypertension Hypothyroidism NSVT (nonsustained ventricular tachycardia) Prediabetes NSVT (nonsustained ventricular tachycardia) Elevated troponin Hypothyroidism NSVT (nonsustained ventricular tachycardia) Chief Complaint Dizziness chest pain chest pain zio Amb Documentation o [facility] 06/25 Reason for Visit Beta thalassemia Dizziness Hypothyroidism Anxiety, generalized Beta thalassemia Family history of cardiac disorder Hypertension Hypothyroidism NSVT (nonsustained ventricular tachycardia) Prediabetes NSVT (nonsustained ventricular tachycardia) Elevated troponin Hypothyroidism NSVT (nonsustained ventricular tachycardia) Chief Complaint Dizziness chest pain chest pain zio Amb Documentation [facility] 06/25 chest pain R42. E56.1 D50.9 E03.9 Reason for Visit Beta thalassemia Dizziness Hypothyroidism Anxiety, generalized Beta thalassemia Family history of cardiac disorder Hypertension Hypothyroidism NSVT (nonsustained ventricular tachycardia) Prediabetes NSVT (nonsustained ventricular tachycardia) Elevated troponin Hypothyroidism NSVT (nonsustained ventricular tachycardia) Chief Complaint Admit Date R42. E56.1 D50.9 E03.9 August 11 4 7:36am HTN - pt to bring BP logs November 04, 2024 1:20pm Chief Complaint Admit Date R42. E56.1 D50.9 E03.9 August 11 4 7:36am HTN - pt to bring BP logs November 04, 2024 1:20pm E28.2 N91.2 November 04, 2024 2 :35pm Chief Complaint Admit Date HTN - pt to bring BP logs November 04, 2024 1:20pm E28.2 N91.2 November 04, 2024 2 :35pm 1 mo December 01, 2024 3:36pm Reason for Visit Admit Date Essential (primary) hypertension November 04, 2024 1:20pm Non-cardiac chest pain November 04 1:20pm Palpitations November 04, 2024 1 :20pm Additional Source Comments INFORMATION SOURCE (unrecogn ized section and content) DATE CREATED AUTHOR 04/22/2021 [facility] DATE CREATED AUTHOR AUTHOR'S ORGANIZ ATION 05/15/2022 [facility] DATE CREATED AUTHOR AUTHOR'S ORGANIZ ATION 03/08/2023 [facility] DATE CREATED AUTHOR AUTHOR'S ORGANIZ ATION 12/02/2023 [facility] DATE CREATED AUTHOR AUTHOR'S ORGANIZ ATION 11/10/2024 [facility] DATE CREATED AUTHOR AUTHOR'S ORGANIZ ATION 12/09/2024 [facility] EPIC REASON FOR VISIT (unrecogniz ed section and content) Reason Comments Well Women Visit Reason Comments Follow-up Reason Comments Pre-op Visit Care Teams (unrecognized sec tion and content) Team Status: Inactive Member Role Status Dates Ayse Wiley DO Primary Care Provider, Attendi ng Provider Active Team Status: Active Member Role Status Dates Ayse Wiley DO Primary Care Provider Active Team Status: Inactive Member Role Status Dates Ayse Wiley , DO Primary Care Provider Active Shira Olson DNP Attending Provider Active Team Status: Inactive Member Role Status Dates Ayse Wiley , DO Primary Care Provider Active Michael Rascon MD Attending Provider Active Team Status: Inactive Member Role Status Dates Ayse Wiley , DO Primary Care Pro vider, Attending Provider Active Start: January 10, 2024 End: January 10, 2024 Team Status: Inactive Member Role Status Dates Ayse Wiley , DO Primary Care Pro vider, Attending Provider Active Start: June 09, 2024 End: June 09, 2024 Team Status: Active Member Role Status Dates Ayse Wiley , DO Primary Care Provider Active Start: June 23, 2024 Katie Villarreal MD Emergency Provider Active Start: June 23, 2024 Jose Fox , DO Admit Provider , Attending Provider Active Start: June 23, 2024 Kavitha Anaya RN Other Provider Active Star t: June 23, 2024 Ed Vick DO Other Provider Active Start : June 23, 2024 Dusty Evans MD Other Provider Active Start: June 23, 2024 Sid Chavez MD Other Provider Active Start: June Juanita Liu MD Other Provider Active St art: June 23, 2024 Bakari Ortiz MD Other Provider Active Start: June 23, 2024 Perlita Warren APRN Other Provider Active Start : June 23, 2024 Margo Pereira MD Other Provider Active Start: S eptembmaureen 2023 Marva Leonard MD Other Provider Active Start: June 23, 2024 Darline Wyatt MD Other Provider Active Start: S eptember 2023 Rachna Vigil , [facility]- Other Provider Active Sta rt: June 23, 2024 Team Status: Inactive Member Role Status Dates Ayse Wiley DO Primary Care Provider Active Start: June 23, 2024 End: June 25, 2024 Katie Villarreal MD Emergency Provider Active Start: June 23, 2024 End: June 25, 2024 Jose Fox , Admit Provider , Attending Provider Active Start: June 23, 2024 End: June 25, 2024 Kavitha Anaya RN Other Provider Active Star t: June 23, 2024 End: June 25, 2024 Bi Pascual MD Other Provider Active Start: S manda 2023 End: June 25, 2024 Salvador Kwan MD Other Provider Active Start: June End: June 25, 2024 Syl Atkinson MD Other Provider Active Start: June 23, 2024 End: June 25, 2024 Ana Chapman DO Other Provider Active Start: June 23, 2024 End: June 25, 2024 Team Status: Active Member Role Status Dates Ayse Wiley DO Primary Care Provider Active Start: June 24, 2024 Katie Villarreal MD Emergency Provider Active Start: June 24, 2024 Jose Fox DO Admit Provider , Other Provider Active Start: June 24, 2024 Kavitha Anaya RN Other Provider Active Star t: June 24, 2024 Bi Pascual MD Other Provider Active Start: S manda 2023 Salvador Kwan MD Other Provider Active Start: June Syl Atkinson MD Other Provider Active Start: June 24, 2024 Ana Chapman DO Attending Provider, Other Provider Active Start: June 24, 2024 Team Status: Active Member Role Status Dates Ayse Wiley DO Primary Care Provider Active Start: June 25, 2024 Salvador Kwan MD Attending Provider Activ e Start: June 25, 2024 Team Status: Inactive Member Role Status Dates Ayse Wiley DO Primary Care Provider Active Start: June 25, 2024 End: June 25, 2024 Salvador Kwan MD Attending Provider Activ e Start: June 25, 2024 End: June 25, 2024 Team Status: Active Member Role Status Dates Ayse Wiley DO Primary Care Provider Active Start: June 26, 2024 Pat Navarrete Attending Provider Active Start: June 26, 2024 Team Status: Inactive Member Role Status Dates Ayse Wiley DO Primary Care Pro videap, Attending Provider Active Start: July 07, 2024 End: July 07, 2024 Team Status: Inactive Member Role Status Dates Ayse Wiley DO Primary Care Provider Active Start: July 09, 2024 End: July 09, 2024 Ana Chapman , DO Attending Provider Active Sta rt: July 09, 2024 End: July 09, 2024 Team Status: Inactive Member Role Status Dates Ayse Wiley DO Primary Care Provider Active Start: July 30, 2024 End: July 30, 2024 Ana Chapman , DO Attending Provider Active Sta rt: July 30, 2024 End: July 30, 2024 Team Status: Active Member Role Status Dates Ayse Wiley DO Primary Care Provider Active Start: July 30, 2024 Katie Villarreal MD Emergency Provider Active Start: July 30, 2024 Jose Fox , Admit Provider , Other Provider Active Start: July 30, 2024 Kavitha Anaya RN Other Provider Active Star t: July 30, 2024 Bi Pascual MD Other Provider Active Start: O ct2023 Salvador Kwan MD Other Provider Active Start: July 30, 2024 Syl Atkinson MD Other Provider Active Start: July 30, 2024 Ana Chapman , Attending Provider, Other Provider Active Start: July 30, 2024 Team Status: Inactive Member Role Status Dates Ayse Wiley DO Primary Care Pro vider, Attending Provider Active Start: August 11, 2024 End: August 11, 2024 Team Status: Inactive Member Role Status Dates Ayse Wiley DO Primary Care Provider Active Start: November 04, 2024 End: November 04, 2024 Salvador Kwan MD Attending Provider Activ e Start: November 04, 2024 End: November 04, 2024 Team Status: Inactive Member Role Status Dates Ayse Wiley DO Primary Care Provider Active Start: November 04, 2024 End: November 04, 2024 Sami Barnhart DO Attending Provider Active Start : November 04, 2024 End: November 04, 2024 Team Status: Inactive Member Role Status Dates Ayse Wiley DO Primary Care Provider Active Start: December 01, 2024 End: December 01, 2024 Salvador Kwan MD Attending Provider Activ e Start: December 01, 2024 End: December 01, 2024 Goals (unrecognized section and content) Goals may be documented in a n alternate section FOR RECORDS PERTAINING TO PATIENTS WHO ARE OR HAVE BEEN ENROLLED IN A CHEMICAL DEPENDENCY/SUBSTANCEABUSE PROGRAM, SOME INFORMATION MAY BE OMITTED. This clinical summary was aggregated from multiple sources. Caution should be exercised in using it in the provision of clinical care. This summary normalizes information from multiple sources, and as a consequence, information in this document may materially change the coding, format and clinical context of patient data. In addition, data may be omitted in some cases. CLINICAL DECISIONS SHOULD BE BASED ON THE PRIMARY CLINICAL RECORDS. [facility]. provides no warranty or guarantee of the accuracy or completeness of information in this document.
[2024-12-19 09:23] LABS: HCG Quantitative <1 mIU/mL
[2024-12-19] MEDS: LACTATED RINGER'S SOLUTION 1,000 ML 50 ML IV (11:10)
--- NOTE | 2024-12-19 11:36 | PM.ONB ---
Brief Operative Note Date of procedure: 12/19/24 Pre-op diagnosis general: menorrhagia, thickend endometrium Post-op diagnosis: same as pre-op Procedure: NAME OF PROCEDURE: [ D&c hysteroscopy with myosure] PROCEDURE: The patient was taken back to the Operating Room where she was prepped and draped in normal sterile fashion after being placed under general anesthesia without difficulty. She was also placed in the dorsal lithotomy position. A weighted speculum was placed in the patient?s vagina. The anterior lip of the cervix was identified and grasped with a single tooth tenaculum. The patient?s uterus was then sounded roughly to [? 8] cm. The patient was then gently dilated using Hegar dilators. The hysteroscope was passed through the patient?s cervix into the uterus. Both ostia were identified. fluffy appearing endometrium. No gross evidence of malignancy, no gross evidence of polyps or fibroids. The myosure apparatus was placed through the scope, The myosure was engaged and endometrial curretting were removed along with endometrial polyp, The hysteroscope was then removed from the uterus. The endometrial curettings were sent out to pathology. The single tooth tenaculum was then removed from the patient's anterior lip of the cervix where excellent hemostasis was noted. All instruments were removed from the patient?s vagina. The patient tolerated the procedure well. Sponge, lap and needle counts were correct times two. The patient was taken to the Recovery Room in stable condition.Room in stable condition. Anesthesia: MAC Surgeon: Sami Barnhart Estimated blood loss (mL): 5 Pathology: other (endometrial currettings) Condition: stable Disposition: PACU
[2024-12-19] MEDS: HYDROCODONE/ACET 5-325 MG TABLET 1 TAB PO (12:01)
== END 2024-12-19 12:53 | disposition home or self-care (01) ==
PROVIDERS: Visit Provider Obstetrics & Gynecology
PROC: (CPT 952; principal; 2024-12-19 09:40)
DX: E28.2 Polycystic ovarian syndrome (principal); N91.2 Amenorrhea, unspecified; R93.89 Abnormal findings on diagnostic imaging of other specified body structures; N84.0 Polyp of corpus uteri; Z87.891 Personal history of nicotine dependence; I10 Essential (primary) hypertension; M79.7 Fibromyalgia; G89.29 Other chronic pain; E07.9 Disorder of thyroid, unspecified
CPT/HCPCS: 58558; 36415; 84702; 85025; 88305; J1100; J1885; J2250; J2405; J2704